=== PATIENT | male | born 1980 | race Two or more races ===

== ENCOUNTER 2020-07-14 16:56 | Emergency (ER) | payer MEDICARE, MEDICAID, SELFPAY ==
--- NOTE | ~2020-07-14 | XR_ITS ---
EXAMINATION: XR CHEST CLINICAL INFORMATION: Chest pain COMPARISON: CT abdomen and pelvis 03/13/2018 TECHNIQUE: Frontal view of the chest was obtained. FINDINGS: No significant abnormality is noted involving the heart, lungs, mediastinum, bony thorax or soft tissues. XR/XR chest 1V IMPRESSION: Unremarkable examination.
[2020-07-14 17:09] VITALS: BP 152/78; PULSE 70; RESP 16; TEMP 36.8; O2SAT 100; BMI 34.3
--- NOTE | 2020-07-14 17:12 | ECG_ITS ---
Test Reason : DIZZNESS Blood Pressure : / mmHG Vent. Rate : 071 BPM Atrial Rate : 071 BPM P-R Int : 148 ms QRS Dur : 078 ms QT Int : 374 ms P-R-T Axes : 064 041 020 degrees QTc Int : 406 ms Normal sinus rhythm Normal ECG No previous ECGs available Referred By: Generic ED Physician Electronically Signed By:VIRIDIANA RAYO
--- NOTE | 2020-07-14 17:52 | ED.CHESTPAIN ---
HPI - Chest Pain General Chief Complaint: Chest Pain Stated Complaint: dizzyness Time Seen by Provider: 07/14/20 17:38 Source: patient Mode of arrival: ambulatory Limitations: no limitations History of Present Illness HPI narrative: Patient presents to the ED for right-sided chest pain for 6 days. Patient was seen at [facility] on and had a EKG that was normal and was discharged. Patient had no workup. Patient still having chest pain. Patient denies any shortness of breath, coughing, fever, chills swelling of lower extremities, calf pain, coughing up blood, or any recent trauma. patient deniess any shortness of breath. MD complaint: chest pain Related Data Previous Rx's Medication Instructions Recorded famotidine [Pepcid] 20 mg PO BID #40 tab 07/14/20 Allergies Allergy/AdvReac Type Severity Reaction Status Date / Time No Known Allergies Allergy Verified 07/14/20 17:11 Review of Systems Review of Systems: Yes all other systems are reviewed and are negative Constitutional: Constitutional: Reports as per HPI and Reports no additional constitutional complaints Eyes: Eyes: Reports as per HPI and Reports no additional eye complaints ENT: Reports system reviewed and no additional complaints, except as documented and Reports as per HPI Cardiovascular: Cardiovascular: Reports as per HPI, Reports no additional cardiovascular complaints and Reports chest pain (Right side) Respiratory: Respiratory: Reports as per HPI and Reports no additional respiratory complaints Gastrointestinal: Gastrointestinal: Reports as per HPI and Reports no additional gastrointestinal complaints Genitourinary: Genitourinary: Reports no additional male genitourinary complaints and Reports as per HPI Musculoskeletal: Musculoskeletal: Reports no additional musculoskeletal complaints and Reports as per HPI Neurologic: Reports system reviewed and no additional complaints, except as documented and Reports as per HPI Psychiatric: Psychiatric: Reports no additional psychiatric complaints and Reports as per HPI [facility] Social History Social History Advance Directives: No Advance Directives Information Provided: No Physical Exam Vital Signs: Vital Signs: Last Vital Signs Temp 98.3 F 07/14/20 17:09 Pulse 61 07/14/20 20:00 Resp 18 07/14/20 20:00 BP 112/61 07/14/20 20:00 Pulse Ox 100 07/14/20 20:00 Body Mass Index 34.3 Const: General: cooperative, healthy appearing, comfortable, no acute distress, well developed, alert, awake and Physically active Orientation/consciousness: patient oriented x3 HENMT: Head: Yes normal to inspection, Yes No palpable skull fracture present, Yes normocephalic, Yes atraumatic and No abrasion Eyes: General: appearance normal, both eyes and all related structures Neck: Neck: Yes normal visual inspection, Yes full ROM, Yes no lymphadenopathy, Yes no meningeal signs, Yes trachea midline, Yes supple and No tender Chest: Chest palpation & inspection: normal inspection of the chest and normal palpation of entire chest wall Resp: Effort & Inspection: normal respiratory effort and able to speak in complete sentences Auscultation: clear to auscultation bilaterally Cardio: Jugular venous distension: no JVD Heart sounds: S1 normal heart sound present and S2 normal heart sound present GI: Inspection: Yes normal to inspection and No abdominal wall ecchymosis Palpation (GI): Soft to palpation, not firm, nontender and no guarding : General: No CVA tenderness and Yes no CVA tenderness Back/Spine/Pelvis: Back: no CVA tenderness, No CVA tenderness and No back tenderness Skin: General skin exam: no rashes or lesions noted and elasticity normal Neuro: General: patient oriented x3, no meningeal signs and CN's II-XI intact bilaterally Cranial nerves: Yes CN's II-XII intact bilaterally Extrem: Other: Lower extremities negative for swelling, pitting edema, or calf tenderness Psych: Appearance: grossly normal, well kempt and not disheveled Course Course Course Narrative: Patient's initial EKG is normal. Patient had basic labs including troponin to make sure there is no cardiac event. Patient also have D-dimer to rule out PE due to patient having right-sided chest pain. Patient also have COVID has been ordered and chest x-ray. Reevaluation(s) Reevaluation #1: Patient's D-dimer negative. Perc score is 0. Chest x-ray normal. Waiting for results of troponin and COVID swab Time: 19:11 Reevaluation #2: Upoin re-evaluation with nurse. Patient states symptoms started since Thursday after eating some spicy food. Due to this new information patient will be given Pepcid in the ED. Patient's troponin negative after having symptoms for 6 days. Time: 20:50 MDM - Chest Pain MDM Narrative Medical decision making narrative: GERD Lab Data Result diagrams: 07/14/20 18:39 07/14/20 18:39 Labs: Lab Results 07/14/20 07/14/20 07/14/20 Range/Units 18:39 18:39 18:39 WBC 10.1 (4.8-10.8) X10*3/uL RBC 4.95 (4.60-5.80) X10*6/uL Hgb 15.4 (14.0-18.0) g/dl Hct 44.1 (42-52) % MCV 89.1 (80-98) fL MCH 31.1 (27.0-33.0) pg MCHC 34.9 (31.0-36.0) g/dl RDW 11.8 (11.0-16.0) % Plt Count 216 (160-400) X10*3/uL MPV 12.9 H (9.4-12.4) fL Immature Gran % (Auto) 0.3 (0.0-0.4) % Neut % (Auto) 73.3 H (45-73) % Lymph % (Auto) 21.4 (20-40) % [place] % (Auto) 4.1 (2-11) % Eos % (Auto) 0.7 (0-4) % Baso % (Auto) 0.2 (0-2) % Lymph # (Auto) 2.2 (1.2-4.9) X10*3/uL [place] # (Auto) 0.4 (0.1-1.2) X10*3/uL Eos # (Auto) 0.1 (0.0-0.4) X10*3/uL Baso # (Auto) 0.0 (0.0-0.2) X10*3/uL Abs Immat Gran (auto) 0.03 (0.00-0.03) X10*3/uL Absolute Neuts (auto) 7.4 (2.0-8.3) X10*3/uL Absolute Nucleated RBC 0.000 (0.0-0.012) X10*3/uL Nucleated RBC % (auto) 0.0 (0.0-0.2) /100WBC PT 13.6 H (10.8-13.0) SEC INR 1.1 (0.9-1.1) APTT 36.9 (24.1-38.0) SEC D-Dimer < 200 NG/ML Hold Blue Top SEE NOTE Sodium 135 (135-145) mmol/L Potassium 4.0 (3.3-5.1) mmol/L Chloride 101 (96-108) mmol/L Carbon Dioxide 25 (22-29) mmol/L Anion Gap 13 (12-20) BUN 15 (9-16) mg/dL Creatinine 0.93 (0.5-1.4) mg/dL Estim Creat Clear Calc 107.2 Estimated GFR > 60 Random Glucose 126 H (60-115) mg/dL Calcium 9.3 (8.4-10.2) mg/dL Total Bilirubin 0.5 (0.0-1.0) mg/dL Direct Bilirubin 0.2 (0.0-0.5) mg/dL AST 25 (5-37) U/L ALT 34 (0-40) U/L Alkaline Phosphatase 85 (39-117) U/L Troponin I High Sens (<3.5-35.0) ng/L Total Protein 7.0 (6.5-8.0) g/dL Albumin 4.4 (3.5-5.0) g/dL Lipase (8-78) U/L COVID-19 (VIRI) (Negative) COVID-19 Clin Com 07/14/20 07/14/20 07/14/20 Range/Units 18:40 18:40 18:40 WBC (4.8-10.8) X10*3/uL RBC (4.60-5.80) X10*6/uL Hgb (14.0-18.0) g/dl Hct (42-52) % MCV (80-98) fL MCH (27.0-33.0) pg MCHC (31.0-36.0) g/dl RDW (11.0-16.0) % Plt Count (160-400) X10*3/uL MPV (9.4-12.4) fL Immature Gran % (Auto) (0.0-0.4) % Neut % (Auto) (45-73) % Lymph % (Auto) (20-40) % [place] % (Auto) (2-11) % Eos % (Auto) (0-4) % Baso % (Auto) (0-2) % Lymph # (Auto) (1.2-4.9) X10*3/uL [place] # (Auto) (0.1-1.2) X10*3/uL Eos # (Auto) (0.0-0.4) X10*3/uL Baso # (Auto) (0.0-0.2) X10*3/uL Abs Immat Gran (auto) (0.00-0.03) X10*3/uL Absolute Neuts (auto) (2.0-8.3) X10*3/uL Absolute Nucleated RBC (0.0-0.012) X10*3/uL Nucleated RBC % (auto) (0.0-0.2) /100WBC PT (10.8-13.0) SEC INR (0.9-1.1) APTT (24.1-38.0) SEC D-Dimer NG/ML Hold Blue Top Sodium (135-145) mmol/L Potassium (3.3-5.1) mmol/L Chloride (96-108) mmol/L Carbon Dioxide (22-29) mmol/L Anion Gap (12-20) BUN (9-16) mg/dL Creatinine (0.5-1.4) mg/dL Estim Creat Clear Calc Estimated GFR Random Glucose (60-115) mg/dL Calcium (8.4-10.2) mg/dL Total Bilirubin (0.0-1.0) mg/dL Direct Bilirubin (0.0-0.5) mg/dL AST (5-37) U/L ALT (0-40) U/L Alkaline Phosphatase (39-117) U/L Troponin I High Sens < 3.5 (<3.5-35.0) ng/L Total Protein (6.5-8.0) g/dL Albumin (3.5-5.0) g/dL Lipase 14 (8-78) U/L COVID-19 (VIRI) Negative (Negative) COVID-19 Clin Com See Note ECG Data ECG #1: Interpretation: Normal sinus rhythm. To clear a 71. Pr interval 148. QRS 78. QTC 4 6. Normal EKG. Negative STEMI Discharge Plan Discharge Clinical Impression: Atypical chest pain, Chest pain due to GERD Patient Disposition: Home, Self-Care Instructions: Chest Pain (ED), Gastroesophageal Reflux Disease (ED) Additional Instructions: Return to the ED immediately for worsening chest pain, shortness of breath, swelling of lower extremities, calf pain, coughing up blood, fever, chills, any other concerning symptoms. Prescriptions: New famotidine [Pepcid] 20 mg tablet 20 mg PO BID Qty: 40 RF: 0 Referrals: [place],[facility] [Primary Care Provider] - 2 days (Atypical chest pain. GERD. EKG normal. Troponin negative. D-dimer negative. Chest x-ray negative for pneumonia. COVID swab negative) Interventions: ED Discharge Assessment Last Done: 07/14/20 21:25 Discharge Date/Time: 07/14/20 21:29 Print Language: Japanese
[2020-07-14 18:45] LABS: MANUAL DIFF FLAG NO
[2020-07-14 18:50] LABS: Basophils Percent Auto 0.2 % (0-2); Eosinophils Absolute Auto 0.1 X10*3/uL (0.0-0.4); Eosinophils Percent Auto 0.7 % (0-4); Hematocrit 44.1 % (42-52); Hemoglobin 15.4 g/dl (14.0-18.0); Imm Gran Abs Auto 0.03 X10*3/uL (0.00-0.03); Imm Gran Pct Auto 0.3 % (0.0-0.4); Lymphocytes Absolute Auto 2.2 X10*3/uL (1.2-4.9); Lymphocytes Percent Auto 21.4 % (20-40); Mean Corpuscular HGB Conc 34.9 g/dl (31.0-36.0); Mean Corpuscular Hemoglobin 31.1 pg (27.0-33.0); Mean Corpuscular Volume 89.1 fL (80-98); Mean Platelet Volume 12.9 fL (9.4-12.4); Monocytes Absolute Auto 0.4 X10*3/uL (0.1-1.2); Monocytes Percent Auto 4.1 % (2-11); Neutrophils Absolute Auto 7.4 X10*3/uL (2.0-8.3); Neutrophils Percent Auto 73.3 % (45-73); Platelet Count 216 X10*3/uL (160-400); Red Blood Count 4.95 X10*6/uL (4.60-5.80); Red Cell Distribution Width 11.8 % (11.0-16.0); White Blood Count 10.1 X10*3/uL (4.8-10.8)
[2020-07-14 19:01] LABS: INTERNATIONAL NORM RATIO 1.1 (0.9-1.1); Prothrombin Time 13.6 SEC (10.8-13.0)
[2020-07-14 19:04] LABS: Partial Thromboplastin Time 36.9 SEC (24.1-38.0)
[2020-07-14 19:05] LABS: D Dimer < 200 NG/ML
[2020-07-14 19:07] LABS: COVID-19 Test Negative (Negative); IDNOW Serial# 9DD0AD1C
[2020-07-14 19:18] LABS: Lipase 14 U/L (8-78)
[2020-07-14 19:19] LABS: Alanine Aminotransferase 34 U/L (0-40); Albumin Level 4.4 g/dL (3.5-5.0); Alkaline Phosphatase 85 U/L (39-117); Anion Gap 13 (12-20); Aspartate Amino Transferase 25 U/L (5-37); Bilirubin Direct 0.2 mg/dL (0.0-0.5); Bilirubin Total 0.5 mg/dL (0.0-1.0); Blood Urea Nitrogen 15 mg/dL (9-16); Calcium 9.3 mg/dL (8.4-10.2); Carbon Dioxide 25 mmol/L (22-29); Chloride 101 mmol/L (96-108); Creatinine Clr Calc Pharmacy 107.2; Estimated Glomerular Filt Rate > 60; Glucose Random 126 mg/dL (60-115); Sodium 135 mmol/L (135-145)
[2020-07-14 19:25] LABS: Troponin-I High Sensitivity < 3.5 ng/L (<3.5-35.0)
[2020-07-14 20:00] VITALS: BP 112/61; PULSE 61; RESP 18; O2SAT 100
[2020-07-14] MEDS: Famotidine/PF 20 MG/2 ML VIAL IVPUSH (20:32)
--- NOTE | 2020-07-14 21:29 | PC.NURSE ---
pt chest discomfort resolving after receiving pepcid iv.
== END 2020-07-14 21:29 | disposition home or self-care (01) ==
PROVIDERS: Physician Assistant; Emergency Provider Internal Medicine
DX: R07.89 Other chest pain (principal); K21.9 Gastro-esophageal reflux disease without esophagitis; Z20.822 Contact with and (suspected) exposure to COVID-19
CPT/HCPCS: 36415; 71045; 80048; 80076; 83690; 84484; 85025; 85379; 85610; 85730; 87635; 93005; 96374; 99284

== ENCOUNTER 2020-07-16 19:03 | Emergency (ER) | payer MEDICARE, MEDICAID, SELFPAY ==
--- NOTE | 2020-07-16 | ECG_ITS ---
Test Reason : CHEST PAIN Blood Pressure : / mmHG Vent. Rate : 070 BPM Atrial Rate : 070 BPM P-R Int : 138 ms QRS Dur : 080 ms QT Int : 374 ms P-R-T Axes : 035 036 012 degrees QTc Int : 403 ms Normal sinus rhythm Normal ECG When compared with ECG of 14-JUL-2020 17:14, no significant change noted Referred By: Anastasiia Wells Electronically Signed By:VIRIDIANA RAYO
--- NOTE | ~2020-07-16 | XR_ITS ---
EXAMINATION: XR CHEST CLINICAL INFORMATION: Chest pain COMPARISON: 07/14/2020 TECHNIQUE: Frontal view of the chest was obtained. FINDINGS: No significant abnormality is noted involving the heart, lungs, mediastinum, bony thorax or soft tissues. XR/XR chest 1V IMPRESSION: No acute pulmonary disease. No significant change from prior study.
--- NOTE | 2020-07-16 19:12 | ECG_ITS ---
Test Reason : REPEAT Blood Pressure : / mmHG Vent. Rate : 061 BPM Atrial Rate : 061 BPM P-R Int : 156 ms QRS Dur : 082 ms QT Int : 394 ms P-R-T Axes : 048 053 034 degrees QTc Int : 396 ms Normal sinus rhythm Normal ECG When compared with ECG of 16-JUL-2020 19:11, No significant change was found Referred By: Anastasiia Wells Electronically Signed By:VIRIDIANA RAYO
[2020-07-16 19:13] VITALS: BP 120/64; PULSE 75; RESP 18; TEMP 36.7; O2SAT 99; BMI 34.3
[2020-07-16 22:00] VITALS: BP 121/66; PULSE 69; RESP 18; TEMP 36.8; O2SAT 98
--- NOTE | 2020-07-16 22:01 | PC.NURSE ---
unlabored resp. ski pwd. continues to have right sided cp radiating to left and left arm. no diaphoresis, no SOB.
[2020-07-16 22:18] LABS: Hematocrit 44.1 % (42-52); Hemoglobin 14.8 g/dl (14.0-18.0); Mean Corpuscular HGB Conc 33.6 g/dl (31.0-36.0); Mean Corpuscular Hemoglobin 30.5 pg (27.0-33.0); Mean Corpuscular Volume 90.9 fL (80-98); Mean Platelet Volume 12.7 fL (9.4-12.4); Platelet Count 202 X10*3/uL (160-400); Red Blood Count 4.85 X10*6/uL (4.60-5.80); Red Cell Distribution Width 11.8 % (11.0-16.0)
[2020-07-16 22:19] LABS: WBC ABN SCTR FOR CBC 1
[2020-07-16 22:37] LABS: Anion Gap 11 (12-20); Blood Urea Nitrogen 13 mg/dL (9-16); Calcium 9.2 mg/dL (8.4-10.2); Carbon Dioxide 29 mmol/L (22-29); Chloride 102 mmol/L (96-108); Creatinine Clr Calc Pharmacy 103.8; Estimated Glomerular Filt Rate > 60; Glucose Random 114 mg/dL (60-115); Potassium 4.3 mmol/L (3.3-5.1); Sodium 138 mmol/L (135-145); White Blood Count 9.4 X10*3/uL (4.8-10.8)
[2020-07-16 22:39] LABS: Basophils Abs Manual 0.1 X10*3/uL (0.0-0.3); Basophils Percent Manual 1 % (0-1); Lymphocytes Absolute Manual 2.4 X10*3/uL (0.6-4.8); Lymphocytes Percent Manual 26 % (20-40); Monocytes Absolute Manual 0.3 X10*3/uL (0.0-1.2); Monocytes Percent Manual 3 % (2-11); Neutrophils Percent Manual 70 % (45-73)
[2020-07-16 22:40] LABS: Neutrophils Absolute Manual 6.6 X10*3/uL (2.2-7.9); Platelet Estimate NORMAL (NORMAL); Platelet Morphology Comment NORMAL; RBC Morphology NORMAL
[2020-07-16 22:55] LABS: Troponin-I High Sensitivity < 3.5 ng/L (<3.5-35.0)
[2020-07-17] VITALS: BP 102/50; PULSE 63; RESP 18; O2SAT 99
--- NOTE | 2020-07-17 00:04 | ED_ITS ---
HPI - Chest Pain General Chief Complaint: Chest Pain Stated Complaint: CHEST PAIN Time Seen by Provider: 07/16/20 23:54 Source: patient Mode of arrival: ambulatory Limitations: no limitations History of Present Illness HPI narrative: Patient comes emergency complaining intermittent chest pain. Patient states 4 days ago, he had his 1st episode of chest pain, self resolved. Then patient came here on July 14, complaining of the same pain. Patient had a thorough workup, all was negative including a dimer. Patient states he went home, had 1 more episode and then self resolved. All day yesterday until now ena chaudhari has remained asymptomatic, patient came to emergency room to get checked. Patient states the chest pain is in both sides of the chest, dull, nonradiating. Patient denies shortness of breath a rough or diaphoresis during the episodes of chest pain. At this time, patient is completely asymptomatic, and has not had any chest pain for the last 24 hours. Patient states the episodes of abdominal pain are nonspecific to exertion Related Data Previous Rx's Medication Instructions Recorded famotidine [Pepcid] 20 mg PO BID #40 tab 07/14/20 Allergies Allergy/AdvReac Type Severity Reaction Status Date / Time No Known Allergies Allergy Verified 07/16/20 19:13 Review of Systems Review of Systems: Constitutional : No Weight loss, No Fever, No Chills, No Night Sweats, No Fatigue, No Malaise ENT/Mouth : No Hearing loss, No Ear Pain, No Nasal Congestion, No Sinus Pain, No Hoarseness, No sore throat, No Rhinorrhea, No Swallowing Difficulty Eyes: No Eye Pain, No Swelling, No Redness, No Foreign Body, No Discharge, No Vision Changes Cardiovascular : Complaining of intermittent Chest Pain, No SOB, No Dyspnea on Exertion, No Orthopnea, No Edema, No Palpitations Respiratory : No Cough, No Sputum, No Wheezing, No Smoke Exposure, No Dyspnea Gastrointestinal : No Nausea, No Vomiting, No Diarrhea, No Constipation, No abdominal Pain, No Hematochezia, No Melena Genitourinary : no irregular bleeding, No Dysuria, No Urinary Frequency, No Hematuria, No Urinary Incontinence, No Urgency, No Flank Pain, No Urinary Flow Changes, No Hesitancy Musculoskeletal : No joint pain, No Myalgias, No Joint Swelling Skin : No Skin Lesions, No rash Neuro : No Weakness, No Numbness, No Paresthesias, No Loss of Consciousness, No Dizziness, No Headache Psych : No Anxiety/Panic, No Depression, No SI/HI/AH/VH, No Social Issues, Heme/Lymph: No Bruising, No Bleeding,No Lymphadenopathy Endocrine : No Polyuria, No Polydipsia, No Temperature Intolerance [facility] Past Medical History Medical History Patient denies medical problems Social History Social History Advance Directives: No Advance Directives Information Provided: No Physical Exam Vital Signs: Vital Signs: Last Vital Signs Temp 98.2 F 07/16/20 22:00 Pulse 69 07/16/20 22:00 Resp 18 07/16/20 22:00 BP 121/66 07/16/20 22:00 Pulse Ox 98 07/16/20 22:00 Body Mass Index 34.3 Appearance: Alert. Oriented X3. No acute distress. Eyes: Pupils equal, round and reactive to light. ENT: Pharynx normal. Neck: Normal inspection. Neck supple. No lymph nodes noted. No crepitus CVS: Normal heart rate and rhythm. Pulses normal. Normal S1 and S2 Respiratory: No respiratory distress. Breath sounds normal. No Wheezing. No rales Abdomen: Soft and nontender. No rigidity. No distention. good BS x4 Skin: Skin warm and dry. Normal skin color. Normal skin turgor. Extremities: No lower extremity edema. No lower extremity edema. No Lacerations. No Rash Neuro: Oriented X 3. No motor deficit. No sensory deficit. Moving all extermities. No slurred speech. Course Course Course Narrative: Patient has remained asymptomatic for over 24 hours. Patient's troponin within normal limits, EKG 1 and 2 within normal limits. I discussed with the patient that he needs to follow up with his primary care physician and will likely need a stressed test. MDM - Chest Pain Lab Data Result diagrams: 07/16/20 22:11 07/16/20 22:11 Labs: Lab Results 07/16/20 07/16/20 07/16/20 Range/Units 22:11 22:11 22:11 WBC 9.4 (4.8-10.8) X10*3/uL RBC 4.85 (4.60-5.80) X10*6/uL Hgb 14.8 (14.0-18.0) g/dl Hct 44.1 (42-52) % MCV 90.9 (80-98) fL MCH 30.5 (27.0-33.0) pg MCHC 33.6 (31.0-36.0) g/dl RDW 11.8 (11.0-16.0) % Plt Count 202 (160-400) X10*3/uL MPV 12.7 H (9.4-12.4) fL Immature Gran % (Auto) Cancelled Neut % (Auto) Cancelled Lymph % (Auto) Cancelled [place] % (Auto) Cancelled Eos % (Auto) Cancelled Baso % (Auto) Cancelled Lymph # (Auto) Cancelled [place] # (Auto) Cancelled Eos # (Auto) Cancelled Baso # (Auto) Cancelled Abs Immat Gran (auto) Cancelled Absolute Neuts (auto) Cancelled Absolute Nucleated RBC 0.000 (0.0-0.012) X10*3/uL Nucleated RBC % (auto) 0.0 (0.0-0.2) /100WBC Neutrophils % (Manual) 70 (45-73) % Lymphocytes % (Manual) 26 (20-40) % Monocytes % (Manual) 3 (2-11) % Basophils % (Manual) 1 (0-1) % Abs Neuts (Manual) 6.6 (2.2-7.9) X10*3/uL Lymphocytes # (Manual) 2.4 (0.6-4.8) X10*3/uL Monocytes # (Manual) 0.3 (0.0-1.2) X10*3/uL Basophils # (Manual) 0.1 (0.0-0.3) X10*3/uL Platelet Estimate NORMAL (NORMAL) Plt Morphology Comment NORMAL RBC Morphology NORMAL Hold Blue Top SEE NOTE Sodium 138 (135-145) mmol/L Potassium 4.3 (3.3-5.1) mmol/L Chloride 102 (96-108) mmol/L Carbon Dioxide 29 (22-29) mmol/L Anion Gap 11 L (12-20) BUN 13 (9-16) mg/dL Creatinine 0.96 (0.5-1.4) mg/dL Estim Creat Clear Calc 103.8 Estimated GFR > 60 Random Glucose 114 (60-115) mg/dL Calcium 9.2 (8.4-10.2) mg/dL Troponin I High Sens (<3.5-35.0) ng/L 07/16/20 Range/Units 22:11 WBC (4.8-10.8) X10*3/uL RBC (4.60-5.80) X10*6/uL Hgb (14.0-18.0) g/dl Hct (42-52) % MCV (80-98) fL MCH (27.0-33.0) pg MCHC (31.0-36.0) g/dl RDW (11.0-16.0) % Plt Count (160-400) X10*3/uL MPV (9.4-12.4) fL Immature Gran % (Auto) Neut % (Auto) Lymph % (Auto) [place] % (Auto) Eos % (Auto) Baso % (Auto) Lymph # (Auto) [place] # (Auto) Eos # (Auto) Baso # (Auto) Abs Immat Gran (auto) Absolute Neuts (auto) Absolute Nucleated RBC (0.0-0.012) X10*3/uL Nucleated RBC % (auto) (0.0-0.2) /100WBC Neutrophils % (Manual) (45-73) % Lymphocytes % (Manual) (20-40) % Monocytes % (Manual) (2-11) % Basophils % (Manual) (0-1) % Abs Neuts (Manual) (2.2-7.9) X10*3/uL Lymphocytes # (Manual) (0.6-4.8) X10*3/uL Monocytes # (Manual) (0.0-1.2) X10*3/uL Basophils # (Manual) (0.0-0.3) X10*3/uL Platelet Estimate (NORMAL) Plt Morphology Comment RBC Morphology Hold Blue Top Sodium (135-145) mmol/L Potassium (3.3-5.1) mmol/L Chloride (96-108) mmol/L Carbon Dioxide (22-29) mmol/L Anion Gap (12-20) BUN (9-16) mg/dL Creatinine (0.5-1.4) mg/dL Estim Creat Clear Calc Estimated GFR Random Glucose (60-115) mg/dL Calcium (8.4-10.2) mg/dL Troponin I High Sens < 3.5 (<3.5-35.0) ng/L ECG Data ECG #1: Attestation: I personally reviewed and interpreted this ECG as follows: (Heart rate 70, sinus rhythm, no ST segment depression, nonspecific T-wave inversion in lead III) ECG #2: Attestation: I personally reviewed and interpreted this ECG as follows: (Sinus rhythm, heart rate 61, QTC 396, no ST segment depression or subtle elevations) Discharge Plan Discharge Clinical Impression: Atypical chest pain Patient Disposition: Home, Self-Care Instructions: Chest Pain (ED) Additional Instructions: Please follow-up with your primary care physician tomorrow. If you have any worsening or new symptoms, please return to the emergency room or call 911 Prescriptions: No Action famotidine [Pepcid] 20 mg tablet 20 mg PO BID Qty: 40 RF: 0
== END 2020-07-17 00:24 | disposition home or self-care (01) ==
PROVIDERS: Emergency Provider Emergency Medicine
DX: R07.89 Other chest pain (principal)
CPT/HCPCS: 36415; 71045; 80048; 84484; 85007; 85027; 93005; 99284

== ENCOUNTER 2020-07-18 18:23 | Emergency (ER) | payer MEDICARE, MEDICAID, SELFPAY ==
--- NOTE | 2020-07-18 | ECG_ITS ---
Test Reason : CP Blood Pressure : / mmHG Vent. Rate : 097 BPM Atrial Rate : 097 BPM P-R Int : 124 ms QRS Dur : 068 ms QT Int : 330 ms P-R-T Axes : 043 041 034 degrees QTc Int : 419 ms Normal sinus rhythm Normal ECG When compared with ECG of 17-JUL-2020 00:06, Vent. rate has increased BY 36 BPM Referred By: Generic ED Physician Electronically Signed By:BURT WARD MD
[2020-07-18 18:34] VITALS: BP 117/66; PULSE 87; RESP 16; TEMP 36.7; O2SAT 97; BMI 34.7
[2020-07-18 20:33] VITALS: BP 113/63; PULSE 63; RESP 18; TEMP 37.1; O2SAT 98
--- NOTE | 2020-07-18 21:22 | ED.CHESTPAIN ---
HPI - Chest Pain General Chief Complaint: Chest Pain Stated Complaint: chest pain Time Seen by Provider: 07/18/20 20:49 Source: patient Mode of arrival: ambulatory Limitations: no limitations History of Present Illness HPI narrative: 39 y/o male presenting with recurrent episodic right upper chest pain. He has been seen here twice in the last 4 days for the same. He has had a thorough workup x2 with negative troponin x2, negative DDIMER, negative CXR and COVID swab. He denies SOB, diaphoresis, nausea, vomiting, muscle aches, headache. No recent injury or strain. He reports the pain is back now. It is dull and non-radiating. No known cardiac risk factors and no family history of early cardiac disease. Related Data Previous Rx's Medication Instructions Recorded famotidine [Pepcid] 20 mg PO BID #40 tab 07/14/20 lidocaine [Lidoderm] 1 patch TOPICAL DAILY #15 ea 07/18/20 prednisone 40 mg PO DAILY #10 tab 07/18/20 Allergies Allergy/AdvReac Type Severity Reaction Status Date / Time No Known Allergies Allergy Verified 07/16/20 19:13 Review of Systems Review of Systems: Constitutional: No Fever, No Chills Cardiovascular: + Chest Pain, No SOB, No Orthopnea, No Edema Respiratory: No Cough, No Sputum, No Wheezing, No dyspnea Gastrointestinal: No Nausea, No Vomiting, No Diarrhea, No abdominal Pain Genitourinary: No Dysuria, No Urinary Frequency, No Hematuria Musculoskeletal: No joint pain, No Myalgias Skin: No Skin Lesions, No rash Neuro: No Weakness, No Numbness, No Dizziness, No Headache Psych: + Anxiety/Panic, No Depression Heme/Lymph: No Bruising, No Lymphadenopathy Endocrine: No Polyuria, No Polydipsia PMFSH Past Medical History Attestation statement: The following information was validated with the patient. Medical History Patient denies medical problems Social History Social History Advance Directives: No Advance Directives Information Provided: Yes Physical Exam Vital Signs: Vital Signs: Last Vital Signs Temp 98.9 F 07/18/20 22:10 Pulse 61 07/18/20 22:10 Resp 18 07/18/20 22:10 BP 119/69 07/18/20 22:10 Pulse Ox 97 07/18/20 22:10 Body Mass Index 34.7 Appearance: Alert. Oriented X3. No acute distress. Eyes: Pupils equal, round and reactive to light. ENT: Pharynx normal. Neck: Normal inspection. Neck supple. CVS: Normal heart rate and rhythm. Pulses normal. Respiratory: No respiratory distress. Breath sounds normal. Mild right upper chest tenderness. No skin changes or ecchymosis. Abdomen: Soft and nontender. +BS x4 Skin: Skin warm and dry. Normal skin color. Normal skin turgor. No rashes. Extremities: No lower extremity edema. Neuro: Oriented X 3. No motor deficit. No sensory deficit. Course Course Course Narrative: 39 y/o male presenting with recurrent right upper chest pain. Extensive workup x2 in the last 4 days. Doubt cardiac in nature. EKG is unremarkable. Will repeat troponin and lab workup. Reevaluation(s) Reevaluation #1: Lab workup is normal. Suspect anxiety is contributing. He was recently started on Sertraline. Given his right chest tenderness will give short course of prednisone for costochondritis. Stable for d/c. MDM - Chest Pain Lab Data Attestation: I reviewed the patient's lab results. Result diagrams: 07/18/20 21:38 07/18/20 21:39 Labs: Lab Results 07/18/20 07/18/20 07/18/20 Range/Units 21:38 21:39 21:39 WBC 11.1 H (4.8-10.8) X10*3/uL RBC 4.91 (4.60-5.80) X10*6/uL Hgb 15.2 (14.0-18.0) g/dl Hct 43.9 (42-52) % MCV 89.4 (80-98) fL MCH 31.0 (27.0-33.0) pg MCHC 34.6 (31.0-36.0) g/dl RDW 11.6 (11.0-16.0) % Plt Count 214 (160-400) X10*3/uL MPV 12.7 H (9.4-12.4) fL Immature Gran % (Auto) 0.4 (0.0-0.4) % Neut % (Auto) 62.3 (45-73) % Lymph % (Auto) 29.2 (20-40) % [place] % (Auto) 6.4 (2-11) % Eos % (Auto) 1.3 (0-4) % Baso % (Auto) 0.4 (0-2) % Lymph # (Auto) 3.2 (1.2-4.9) X10*3/uL [place] # (Auto) 0.7 (0.1-1.2) X10*3/uL Eos # (Auto) 0.1 (0.0-0.4) X10*3/uL Baso # (Auto) 0.0 (0.0-0.2) X10*3/uL Abs Immat Gran (auto) 0.04 H (0.00-0.03) X10*3/uL Absolute Neuts (auto) 6.9 (2.0-8.3) X10*3/uL Absolute Nucleated RBC 0.000 (0.0-0.012) X10*3/uL Nucleated RBC % (auto) 0.0 (0.0-0.2) /100WBC Sodium 136 (135-145) mmol/L Potassium 4.3 (3.3-5.1) mmol/L Chloride 103 (96-108) mmol/L Carbon Dioxide 28 (22-29) mmol/L Anion Gap 9 L (12-20) BUN 14 (9-16) mg/dL Creatinine 0.96 (0.5-1.4) mg/dL Estim Creat Clear Calc 104.4 Estimated GFR > 60 Random Glucose 93 (60-115) mg/dL Calcium 9.2 (8.4-10.2) mg/dL Magnesium 2.3 (1.6-2.6) mg/dL Troponin I High Sens < 3.5 (<3.5-35.0) ng/L ECG Data ECG #1: Attestation: I personally reviewed and interpreted this ECG as follows: ECG interpretation date: 07/18/20 ECG interpretation time: 22:31 Prior ECG tracings: available for review Interpretation: normal sinus rhythm, HR 97 bpm, normal QTc, normal MA interval. no ST segment elevations or depressions Scores Heart Score History: -0- slightly suspicious ECG: -0- normal Age: -0- < or = 45 Risk factory: -0- no risk factors known Troponin: -0- < or = normal limit Score: 0 Risk: 1.7% Critical Care Time Critical Care Time Critical Care Time: No Discharge Plan Discharge Clinical Impression: Atypical chest pain, Costochondritis Patient Disposition: Home, Self-Care Instructions: Costochondritis (ED) Additional Instructions: Your workup today was again normal. No evidence of life threatening nausea of chest pain. Take the prescribed anti-inflammatory medication for your pain for 5 days. Follow up with your doctor. If pain worsens or changes come back to the ER for further evaluation. Prescriptions: New prednisone 20 mg tablet 40 mg PO DAILY Qty: 10 RF: 0 lidocaine [Lidoderm] 5 % adhesive patch,medicated 1 patch topical DAILY Qty: 15 RF: 0 No Action famotidine [Pepcid] 20 mg tablet 20 mg PO BID Qty: 40 RF: 0
[2020-07-18 21:43] LABS: MANUAL DIFF FLAG NO
[2020-07-18 21:59] LABS: Basophils Percent Auto 0.4 % (0-2); Eosinophils Absolute Auto 0.1 X10*3/uL (0.0-0.4); Eosinophils Percent Auto 1.3 % (0-4); Hematocrit 43.9 % (42-52); Hemoglobin 15.2 g/dl (14.0-18.0); Imm Gran Abs Auto 0.04 X10*3/uL (0.00-0.03); Imm Gran Pct Auto 0.4 % (0.0-0.4); Lymphocytes Absolute Auto 3.2 X10*3/uL (1.2-4.9); Lymphocytes Percent Auto 29.2 % (20-40); Mean Corpuscular HGB Conc 34.6 g/dl (31.0-36.0); Mean Corpuscular Volume 89.4 fL (80-98); Mean Platelet Volume 12.7 fL (9.4-12.4); Monocytes Absolute Auto 0.7 X10*3/uL (0.1-1.2); Monocytes Percent Auto 6.4 % (2-11); Neutrophils Absolute Auto 6.9 X10*3/uL (2.0-8.3); Neutrophils Percent Auto 62.3 % (45-73); Platelet Count 214 X10*3/uL (160-400); Red Blood Count 4.91 X10*6/uL (4.60-5.80); Red Cell Distribution Width 11.6 % (11.0-16.0); White Blood Count 11.1 X10*3/uL (4.8-10.8)
[2020-07-18 22:10] VITALS: BP 119/69; PULSE 61; RESP 18; TEMP 37.2; O2SAT 97
[2020-07-18 22:10] LABS: Anion Gap 9 (12-20); Blood Urea Nitrogen 14 mg/dL (9-16); Calcium 9.2 mg/dL (8.4-10.2); Carbon Dioxide 28 mmol/L (22-29); Chloride 103 mmol/L (96-108); Creatinine Clr Calc Pharmacy 104.4; Estimated Glomerular Filt Rate > 60; Glucose Random 93 mg/dL (60-115); Magnesium 2.3 mg/dL (1.6-2.6); Potassium 4.3 mmol/L (3.3-5.1); Sodium 136 mmol/L (135-145)
[2020-07-18 22:16] LABS: Troponin-I High Sensitivity < 3.5 ng/L (<3.5-35.0)
--- NOTE | 2020-07-18 22:43 | PC.NURSE ---
pt states his pain level has improved and is ready for discharge. chest wall pain resolving. pt talking in full sentences no s/s of resp distress nsr on monitor.
== END 2020-07-18 22:50 | disposition home or self-care (01) ==
PROVIDERS: Physician Assistant; Emergency Provider Emergency Medicine
DX: R07.89 Other chest pain (principal); M94.0 Chondrocostal junction syndrome [Tietze]
CPT/HCPCS: 36415; 80048; 83735; 84484; 85025; 93005; 99283; 99284

== ENCOUNTER 2020-08-01 17:41 | Emergency (ER) | payer MEDICARE, MEDICAID, SELFPAY ==
--- NOTE | ~2020-08-01 | XR_ITS ---
EXAMINATION: XR CHEST CLINICAL INFORMATION: Chest pain COMPARISON: Chest x-ray July 2020 TECHNIQUE: 2 views of the chest were obtained. FINDINGS: No significant abnormality is noted involving the heart, lungs, mediastinum, bony thorax or soft tissues. XR/XR chest 2V IMPRESSION: Unremarkable examination.
[2020-08-01 19:42] VITALS: BP 138/80; PULSE 68; RESP 16; TEMP 36.9; O2SAT 98; BMI 34.3
--- NOTE | 2020-08-01 20:41 | ECG_ITS ---
Test Reason : CHEST PAIN Blood Pressure : / mmHG Vent. Rate : 087 BPM Atrial Rate : 087 BPM P-R Int : 130 ms QRS Dur : 074 ms QT Int : 340 ms P-R-T Axes : 043 054 026 degrees QTc Int : 409 ms Normal sinus rhythm Normal ECG When compared with ECG of 18-JUL-2020 18:26, No significant change was found Referred By: Jo Charlton Electronically Signed By:BURT WARD MD
--- NOTE | 2020-08-01 21:03 | ED_ITS ---
HPI - Chest Pain General Chief Complaint: Chest Pain Stated Complaint: Chest wall pain Time Seen by Provider: 08/01/20 20:40 Source: patient Mode of arrival: ambulatory Limitations: no limitations History of Present Illness HPI narrative: 39-year-old male here with right-sided chest pain for the last week. Patient tells me he has been seen here several times for this. He has had negative workups including negative troponin, D-dimer, chest x-ray and COVID swab. He was treated last week for costochondritis with prednisone. Patient tells me that he continued to have symptoms. He has had constant pain which is persistent for the last few weeks on the right side which is not associated with any shortness of breath, nausea, diaphoresis, dizziness, cough. He tells me pain is worsened with palpation but is not worsened with deep breathing. No calf pain. No abdominal pain, nausea or vomiting. Related Data Previous Rx's Medication Instructions Recorded famotidine [Pepcid] 20 mg PO BID #40 tab 07/14/20 lidocaine [Lidoderm] 1 patch TOPICAL DAILY #15 ea 07/18/20 prednisone 40 mg PO DAILY #10 tab 07/18/20 cyclobenzaprine 10 mg PO TID PRN #10 tab 08/01/20 ibuprofen 600 mg PO Q8H PRN #10 tab 08/01/20 Allergies Allergy/AdvReac Type Severity Reaction Status Date / Time No Known Allergies Allergy Verified 07/16/20 19:13 Review of Systems Review of Systems: Yes all other systems are reviewed and are negative Constitutional: Constitutional: Reports no additional constitutional complaints, Denies body ache(s), Denies chills, Denies fever(s), Denies headache(s) and Denies weakness Eyes: Eyes: Reports no additional eye complaints and Denies change in vision ENT: Reports system reviewed and no additional complaints, except as documented, Denies dizziness, Denies headache(s), Denies nasal congestion, Denies nasal discharge and Denies neck pain Cardiovascular: Cardiovascular: Reports no additional cardiovascular complaints, Reports chest pain, Denies leg edema and Denies dyspnea Respiratory: Respiratory: Reports no additional respiratory complaints, Denies cough and Denies dyspnea Gastrointestinal: Gastrointestinal: Reports no additional gastrointestinal complaints, Denies abdominal pain, Denies diarrhea, Denies nausea and Denies vomiting Genitourinary: Genitourinary: Denies urinary incontinence Musculoskeletal: Musculoskeletal: Reports no additional musculoskeletal complaints, Denies back pain, Denies arthralgias, Denies joint swelling, Denies neck pain, Denies numbness and Denies tingling Integumentary/Breasts: Skin/Breast: Reports system reviewed and no additional complaints, except as docu and Denies rash Neurologic: Reports system reviewed and no additional complaints, except as documented, Denies Abnormal speech present, Denies dizziness, Denies headache(s), Denies numbness, Denies tingling and Denies weakness PMFSH Past Medical History Attestation statement: The following information was validated with the patient. Source: old records reviewed and nursing notes reviewed Medical History Patient denies medical problems Social History Social History Advance Directives: No Advance Directives Information Provided: Yes Physical Exam Vital Signs: Vital Signs: Last Vital Signs Temp 98.5 F 08/01/20 19:42 Pulse 67 08/01/20 22:53 Resp 18 08/01/20 22:53 BP 114/57 L 08/01/20 22:53 Pulse Ox 98 08/01/20 22:53 Body Mass Index 34.3 Const: General: cooperative, healthy appearing, comfortable and no acute distress Orientation/consciousness: patient oriented x3 Limitations: no limitations HENMT: Head: Yes normal to inspection Ears: hearing grossly normal bilaterally General nose exam: Normal external nose present Face and sinus: Yes normal facial exam Mouth: Normal oral and palatal mucosa present Throat: Yes posterior oropharynx normal Eyes: General: appearance normal, both eyes and all related structures Pupils: Equal, round and reactive pupils present Neck: Neck: Yes normal visual inspection Chest: Other: Chest pain worsened with palpation on the right side Chest palpation & inspection: normal inspection of the chest Resp: Effort & Inspection: normal respiratory effort Auscultation: clear to auscultation bilaterally Cardio: Rate: regular rate Rhythm: regular rhythm Peripheral pulses: Peripheral pulses 2+ throughout GI: Inspection: Yes normal to inspection Palpation (GI): Soft to palpation and nontender Auscultation: normal bowel sounds Back/Spine/Pelvis: Thoracic/Lumbar Spine: thoracic and lumbar spine normal to inspection Skin: General skin exam: no rashes or lesions noted Neuro: General: patient oriented x3, no focal motor deficits and normal sensation to monofilament Cranial nerves: Yes Equal, round and reactive pupils present Cognition (Neuro): normal cognition Speech: No Abnormal speech present Gait exam (Neuro): Normal gait present Motor exam (neuro): 5/5 motor strength present throughout Extrem: General: Yes normal to inspection Course Course Course Narrative: Reproducible right-sided chest discomfort which has been constant for the last few weeks with multiple ED visits with negative workups. Patient tells me the pain is not worsened but this is the same. He has a follow-up appointment August 09 with his primary care doctor. Will check labs, chest x-ray, EKG. 1030-imaging unremarkable. EKG with no acute changes. Labs are unremarkable. Patient is improved after receiving some Toradol. His exam is more musculoskeletal. I did review this with the patient. Reviewed keeping his follow-up appointment with his primary care doctor. Reviewed worrisome signs and symptoms of when to return to the emergency department. Comfortable discharge home. MDM - Chest Pain MDM Narrative Medical decision making narrative: Musculoskeletal pain, chest wall strain, costochondritis, ACS, PE, pneumonia Less likely ACS with negative troponin and unchanged EKG with symptoms for weeks. Less likely PE with negative PERC score, no tachycardia or hypoxia for clinical signs and symptoms for DVT. Less likely pneumonia with negative chest x-ray Medical Records Data Attestation: I reviewed the patient's medical records. Lab Data Attestation: I reviewed the patient's lab results. Result diagrams: 08/01/20 21:31 08/01/20 21:31 Labs: Lab Results 08/01/20 08/01/20 08/01/20 Range/Units 21:31 21:31 21:31 WBC 11.5 H (4.8-10.8) X10*3/uL RBC 4.92 (4.60-5.80) X10*6/uL Hgb 15.0 (14.0-18.0) g/dl Hct 44.7 (42-52) % MCV 90.9 (80-98) fL MCH 30.5 (27.0-33.0) pg MCHC 33.6 (31.0-36.0) g/dl RDW 11.8 (11.0-16.0) % Plt Count 213 (160-400) X10*3/uL MPV 12.2 (9.4-12.4) fL Immature Gran % (Auto) 0.3 (0.0-0.4) % Neut % (Auto) 65.8 (45-73) % Lymph % (Auto) 25.7 (20-40) % [place] % (Auto) 6.7 (2-11) % Eos % (Auto) 1.2 (0-4) % Baso % (Auto) 0.3 (0-2) % Lymph # (Auto) 3.0 (1.2-4.9) X10*3/uL [place] # (Auto) 0.8 (0.1-1.2) X10*3/uL Eos # (Auto) 0.1 (0.0-0.4) X10*3/uL Baso # (Auto) 0.0 (0.0-0.2) X10*3/uL Abs Immat Gran (auto) 0.03 (0.00-0.03) X10*3/uL Absolute Neuts (auto) 7.5 (2.0-8.3) X10*3/uL Absolute Nucleated RBC 0.000 (0.0-0.012) X10*3/uL Nucleated RBC % (auto) 0.0 (0.0-0.2) /100WBC PT 11.3 (10.8-13.0) SEC INR 1.0 (0.9-1.1) Sodium 138 (135-145) mmol/L Potassium 4.4 (3.3-5.1) mmol/L Chloride 103 (96-108) mmol/L Carbon Dioxide 26 (22-29) mmol/L Anion Gap 13 (12-20) BUN 16 (9-16) mg/dL Creatinine 0.84 (0.5-1.4) mg/dL Estim Creat Clear Calc 118.7 Estimated GFR > 60 Random Glucose 90 (60-115) mg/dL Calcium 9.2 (8.4-10.2) mg/dL Total Bilirubin 0.3 (0.0-1.0) mg/dL Direct Bilirubin < 0.2 (0.0-0.5) mg/dL AST 29 (5-37) U/L ALT 66 H (0-40) U/L Alkaline Phosphatase 112 D (39-117) U/L Troponin I High Sens (<3.5-35.0) ng/L Total Protein 7.1 (6.5-8.0) g/dL Albumin 4.2 (3.5-5.0) g/dL 08/01/20 Range/Units 21:31 WBC (4.8-10.8) X10*3/uL RBC (4.60-5.80) X10*6/uL Hgb (14.0-18.0) g/dl Hct (42-52) % MCV (80-98) fL MCH (27.0-33.0) pg MCHC (31.0-36.0) g/dl RDW (11.0-16.0) % Plt Count (160-400) X10*3/uL MPV (9.4-12.4) fL Immature Gran % (Auto) (0.0-0.4) % Neut % (Auto) (45-73) % Lymph % (Auto) (20-40) % [place] % (Auto) (2-11) % Eos % (Auto) (0-4) % Baso % (Auto) (0-2) % Lymph # (Auto) (1.2-4.9) X10*3/uL [place] # (Auto) (0.1-1.2) X10*3/uL Eos # (Auto) (0.0-0.4) X10*3/uL Baso # (Auto) (0.0-0.2) X10*3/uL Abs Immat Gran (auto) (0.00-0.03) X10*3/uL Absolute Neuts (auto) (2.0-8.3) X10*3/uL Absolute Nucleated RBC (0.0-0.012) X10*3/uL Nucleated RBC % (auto) (0.0-0.2) /100WBC PT (10.8-13.0) SEC INR (0.9-1.1) Sodium (135-145) mmol/L Potassium (3.3-5.1) mmol/L Chloride (96-108) mmol/L Carbon Dioxide (22-29) mmol/L Anion Gap (12-20) BUN (9-16) mg/dL Creatinine (0.5-1.4) mg/dL Estim Creat Clear Calc Estimated GFR Random Glucose (60-115) mg/dL Calcium (8.4-10.2) mg/dL Total Bilirubin (0.0-1.0) mg/dL Direct Bilirubin (0.0-0.5) mg/dL AST (5-37) U/L ALT (0-40) U/L Alkaline Phosphatase (39-117) U/L Troponin I High Sens 3.5 (<3.5-35.0) ng/L Total Protein (6.5-8.0) g/dL Albumin (3.5-5.0) g/dL Imaging Data Chest x-ray: Attestation: I personally reviewed and interpreted this imaging study as follows: Radiologist's impression: EXAMINATION: XR CHEST CLINICAL INFORMATION: Chest pain COMPARISON: Chest x-ray July 2020 TECHNIQUE: 2 views of the chest were obtained. FINDINGS: No significant abnormality is noted involving the heart, lungs, mediastinum, bony thorax or soft tissues. XR/XR chest 2V IMPRESSION: Unremarkable examination. ECG Data ECG #1: Attestation: I personally reviewed and interpreted this ECG as follows: Interpretation: Normal sinus rhythm with a rate of 87, normal MO, normal QRS, normal QTC Discharge Plan Discharge Clinical Impression: Atypical chest pain Patient Disposition: Home, Self-Care Instructions: Chest Wall Pain (ED) Additional Instructions: Keep your appointment with your PCP Prescriptions: New cyclobenzaprine 10 mg tablet 10 mg PO TID PRN (Reason: muscle spasm) Qty: 10 RF: 0 ibuprofen 600 mg tablet 600 mg PO Q8H PRN (Reason: pain) Qty: 10 RF: 0 No Action famotidine [Pepcid] 20 mg tablet 20 mg PO BID Qty: 40 RF: 0 prednisone 20 mg tablet 40 mg PO DAILY Qty: 10 RF: 0 lidocaine [Lidoderm] 5 % adhesive patch,medicated 1 patch topical DAILY Qty: 15 RF: 0 Referrals: Physician,Unknown [Primary Care Provider] - 2 days Interventions: ED Discharge Assessment Last Done: 08/01/20 22:54 Discharge Date/Time: 08/01/20 22:57
[2020-08-01 21:37] LABS: MANUAL DIFF FLAG NO
[2020-08-01 21:39] LABS: Basophils Percent Auto 0.3 % (0-2); Eosinophils Absolute Auto 0.1 X10*3/uL (0.0-0.4); Eosinophils Percent Auto 1.2 % (0-4); Hematocrit 44.7 % (42-52); Imm Gran Abs Auto 0.03 X10*3/uL (0.00-0.03); Imm Gran Pct Auto 0.3 % (0.0-0.4); Lymphocytes Percent Auto 25.7 % (20-40); Mean Corpuscular HGB Conc 33.6 g/dl (31.0-36.0); Mean Corpuscular Hemoglobin 30.5 pg (27.0-33.0); Mean Corpuscular Volume 90.9 fL (80-98); Mean Platelet Volume 12.2 fL (9.4-12.4); Monocytes Absolute Auto 0.8 X10*3/uL (0.1-1.2); Monocytes Percent Auto 6.7 % (2-11); Neutrophils Absolute Auto 7.5 X10*3/uL (2.0-8.3); Neutrophils Percent Auto 65.8 % (45-73); Platelet Count 213 X10*3/uL (160-400); Red Blood Count 4.92 X10*6/uL (4.60-5.80); Red Cell Distribution Width 11.8 % (11.0-16.0); White Blood Count 11.5 X10*3/uL (4.8-10.8)
[2020-08-01 21:44] LABS: Prothrombin Time 11.3 SEC (10.8-13.0)
[2020-08-01] MEDS: Ketorolac Tromethamine 30 MG/ML VIAL IVPUSH (21:54)
[2020-08-01 22:03] LABS: Alanine Aminotransferase 66 U/L (0-40); Albumin Level 4.2 g/dL (3.5-5.0); Alkaline Phosphatase 112 U/L (39-117); Anion Gap 13 (12-20); Aspartate Amino Transferase 29 U/L (5-37); Bilirubin Direct < 0.2 mg/dL (0.0-0.5); Bilirubin Total 0.3 mg/dL (0.0-1.0); Blood Urea Nitrogen 16 mg/dL (9-16); Calcium 9.2 mg/dL (8.4-10.2); Carbon Dioxide 26 mmol/L (22-29); Chloride 103 mmol/L (96-108); Creatinine Clr Calc Pharmacy 118.7; Estimated Glomerular Filt Rate > 60; Glucose Random 90 mg/dL (60-115); Potassium 4.4 mmol/L (3.3-5.1); Sodium 138 mmol/L (135-145); Total Protein 7.1 g/dL (6.5-8.0)
--- NOTE | 2020-08-01 22:03 | PC.NURSE ---
medicated per emar
[2020-08-01 22:05] LABS: Troponin-I High Sensitivity 3.5 ng/L (<3.5-35.0)
[2020-08-01 22:53] VITALS: BP 114/57; PULSE 67; RESP 18; O2SAT 98
== END 2020-08-01 22:57 | disposition home or self-care (01) ==
PROVIDERS: Nurse Practitioner Family; Emergency Provider Emergency Medicine
DX: R07.89 Other chest pain (principal)
CPT/HCPCS: 36415; 71046; 80048; 80076; 84484; 85025; 85610; 93005; 96374; 99284; J1885

== ENCOUNTER 2021-02-11 12:32 | Emergency (ER) | payer MEDICARE, MEDICAID, SELFPAY ==
[2021-02-11 13:19] VITALS: BP 132/78; PULSE 66; RESP 16; TEMP 36.6; O2SAT 98; BMI 34.3
[2021-02-11 15:31] VITALS: BP 134/64; PULSE 63; RESP 16; O2SAT 100
[2021-02-11 15:43] LABS: Glucose Urine UA NEG (NEG); Leukocyte Esterase Urine NEG (NEG); Nitrite Urine NEG (NEG); Specific Gravity - Urine 1.025 (1.005-1.025); Urine Blood NEG (NEG); Urine Ketones NEG (NEG); Urine Protein NEG (NEG-TRACE)
[2021-02-11 15:44] LABS: Appearance Urine CLEAR; Color Urine STRAW
[2021-02-11] MEDS: Cyclobenzaprine HCl 5 MG TABLET PO (15:44)
[2021-02-11] MEDS: Ketorolac Tromethamine 15 MG/ML VIAL 30 MG IM (15:44)
--- NOTE | 2021-02-11 16:45 | ED_ITS ---
HPI - Back Pain/Injury General Chief Complaint: Abdominal Pain Stated Complaint: back pain Time Seen by Provider: 02/11/21 15:22 Source: patient Mode of arrival: ambulatory History of Present Illness HPI Narrative: 40-year-old male with past medical history of renal stones presenting to the ED complaining of bilateral low back pain radiating to abdomen since yesterday. Admits intermittent radiation down E ED. admits pain began after doing some work. States pain exacerbated with bending/movement. Denies known injury/trauma or fall, nausea, vomiting, dysuria/hematuria, flank pain, weakness, numbness, tingling, urinary incontinence/retention MD elicited complaint: back pain Related Data Previous Rx's Medication Instructions Recorded famotidine 20 mg tablet (Pepcid) 20 mg PO BID #40 tab 07/14/20 lidocaine 5 % topical patch 1 patch TOPICAL DAILY #15 ea 07/18/20 (Lidoderm) prednisone 20 mg tablet 40 mg PO DAILY #10 tab 07/18/20 cyclobenzaprine 10 mg tablet 10 mg PO TID PRN #10 tab 08/01/20 ibuprofen 600 mg tablet 600 mg PO Q8H PRN #10 tab 08/01/20 acetaminophen 500 mg tablet 500 mg PO Q6H PRN #20 tab 02/11/21 (Tylenol Extra Strength) cyclobenzaprine 5 mg tablet 5 mg PO Q8H PRN 5 Days #14 tab 02/11/21 lidocaine 5 % topical patch 1 patch TOPICAL DAILY PRN #30 ea 02/11/21 (Lidoderm) MDD remove after 12 hours naproxen 500 mg tablet 500 mg PO BID PRN 10 Days #20 tab 02/11/21 Allergies Allergy/AdvReac Type Severity Reaction Status Date / Time No Known Allergies Allergy Verified 07/16/20 19:13 Review of Systems Review of Systems: Constitutional:No Fever, No Chills, No Fatigue, No Malaise ENT/Mouth: No Ear Pain, No Hoarseness, No sore throat, No Rhinorrhea, No Swallowing Difficulty Eyes: No Eye Pain Cardiovascular: No Chest Pain, No SOB Respiratory: No Cough, No Dyspnea Gastrointestinal: No Nausea, No Vomiting, No Diarrhea, No Constipation, No Abdominal pain Genitourinary: No Dysuria, No Urinary Frequency, No Hematuria, No Urinary Incontinence/retention, No Urgency, No Flank Pain Musculoskeletal: + joint pain, No Myalgias, No Joint Swelling Skin: No Skin Lesions, No rash Neuro: No Weakness, No Numbness, No Paresthesias Yes all other systems are reviewed and are negative Neurologic: Denies Sensory deficit (Neuro) [facility] Past Medical History Attestation statement: The following information was validated with the patient. Medical History Patient denies medical problems Social History Social History Alcohol intake: never Patient Tobacco Use Status: Never used Tobacco Use of substances other than those prescribed or required for medical reasons: No Advance Directives: No Physical Exam Vital Signs: Vital Signs: Last Vital Signs Temp 97.8 F 02/11/21 13:19 Pulse 63 02/11/21 15:31 Resp 16 02/11/21 15:31 BP 134/64 02/11/21 15:31 Pulse Ox 100 02/11/21 15:31 Body Mass Index 34.3 Const: General: cooperative and healthy appearing Orientation/consciousness: patient oriented x3 Limitations: no limitations HENMT: Head: Yes normal to inspection Ears: hearing grossly normal bilaterally General nose exam: Normal external nose present Face and sinus: Yes normal facial exam Eyes: General: appearance normal, both eyes and all related structures EOM: EOMs intact bilaterally Neck: Neck: Yes normal visual inspection Resp: Effort & Inspection: normal respiratory effort and no respiratory distress Cardio: Rate: regular rate GI: Inspection: Yes normal to inspection Palpation (GI): Soft to palpation, nontender, no guarding and not rigid : General: Yes no CVA tenderness Back/Spine/Pelvis: Other: No midline thoracic/lumbar spine tenderness/step-off or deformity. + bilateral MSK/paraspinal lumbar tenderness to palpation Back: no CVA tenderness Skin: Rashes: no rashes Wounds: no wounds Neuro: Other: No saddle anesthesia. Ambulating with steady gait General: patient oriented x3, gait normal, tone normal and moves all extremities Gait exam (Neuro): Normal gait present Motor exam (neuro): 5/5 motor strength present throughout Sensory Exam: No Sensory deficit (Neuro) Extrem: General: Yes normal to inspection Course Course Course Narrative: -UA without blood -[id number]--on re-evaluation patient reports symptomatic improvement. Feels safe for discharge home. Worrisome signs and symptoms discussed MDM - Back Pain/Injury MDM Narrative Medical decision making narrative: 40-year-old male with past medical history of renal stones presenting to the ED complaining of bilateral low back pain radiating to abdomen since yesterday. On exam VS as, NAD/well-appearing, physical exam as above, no midline spinous tenderness throughout, no red flag symptoms. No CVAT. Likely MSK pain. Lower concern for renal stone/pyelo Will obtain UA and treat symptomatically Medical Records Attestation: I reviewed the patient's medical records. Lab Data Labs: Lab Results 02/11/21 Range/Units 15:34 Urine Color STRAW Urine Appearance CLEAR Urine pH 6.0 (5.0-8.0) Ur Specific [place] 1.025 (1.005-1.025) Urine Protein NEG (NEG-TRACE) MG/DL Urine Glucose (UA) NEG (NEG) MG/DL Urine Ketones NEG (NEG) MG/DL Urine Blood NEG (NEG) Urine Nitrite NEG (NEG) Ur Leukocyte Esterase NEG (NEG) Discharge Plan Discharge Clinical Impression: Back pain Qualifiers: Back pain location: low back pain Chronicity: acute Back pain laterality: bilateral Sciatica presence: with sciatica Sciatica laterality: sciatica of left side Qualified Code(s): M54.42 - Lumbago with sciatica, left side Patient Disposition: Home, Self-Care Instructions: Acute Low Back Pain (ED) Additional Instructions: Your pain is likely musculoskeletal Flexeril is a muscle relaxer, take at night as it makes you drowsy, do not drive, drink alcohol, or operate machinery while taking it Naproxen as an anti-inflammatory / pain medication, take with food Lidoderm patches are numbing patches, apply to painful area In addition take Tylenol at home If symptoms persist or worsen, pain becomes unbearable, you developed urinary retention or incontinence, or weakness return to the ED Prescriptions: New lidocaine [Lidoderm] 5 % adhesive patch,medicated 1 patch topical DAILY MDD remove after 12 hours PRN (Reason: pain) Qty: 30 RF: 0 cyclobenzaprine 5 mg tablet 5 mg PO Q8H PRN (Reason: pain (scale score 7-10)) 5 Days Qty: 14 RF: 0 naproxen 500 mg tablet 500 mg PO BID PRN (Reason: pain) 10 Days Qty: 20 RF: 0 acetaminophen [Tylenol Extra Strength] 500 mg tablet 500 mg PO Q6H PRN (Reason: pain or fever) Qty: 20 RF: 0 No Action cyclobenzaprine 10 mg tablet 10 mg PO TID PRN (Reason: muscle spasm) Qty: 10 RF: 0 ibuprofen 600 mg tablet 600 mg PO Q8H PRN (Reason: pain) Qty: 10 RF: 0 famotidine [Pepcid] 20 mg tablet 20 mg PO BID Qty: 40 RF: 0 prednisone 20 mg tablet 40 mg PO DAILY Qty: 10 RF: 0 lidocaine [Lidoderm] 5 % adhesive patch,medicated 1 patch topical DAILY Qty: 15 RF: 0 Referrals: [facility] [Primary Care Provider] - 5 days
[2021-02-11 17:07] VITALS: BP 126/75; PULSE 62; RESP 16; O2SAT 100
== END 2021-02-11 17:09 | disposition home or self-care (01) ==
PROVIDERS: Physician Assistant; Emergency Provider Emergency Medicine
DX: M54.42 Lumbago with sciatica, left side (principal)
CPT/HCPCS: 81003; 96372; 99284; 99285; J1885

== ENCOUNTER 2021-05-16 14:29 | Emergency (ER) | payer MEDICARE, MEDICAID, SELFPAY ==
--- NOTE | ~2021-05-16 | XR_ITS ---
EXAMINATION: XR KNEE, RIGHT CLINICAL INFORMATION: Right knee pain. COMPARISON: None TECHNIQUE: AP and lateral views of the right knee. FINDINGS: Mild medial compartment joint space narrowing. No marginal osteophytes. No osseous erosion. Small superior patellar enthesophytes. No fracture or dislocation. No significant joint effusion. XR/XR knee RT 2V IMPRESSION: Mild medial compartment arthrosis.
[2021-05-16 15:39] VITALS: BP 126/80; PULSE 77; RESP 16; TEMP 36.4; O2SAT 98; BMI 34.3
--- NOTE | 2021-05-16 19:52 | ED_ITS ---
HPI - General Adult General Chief complaint: General Medical Stated complaint: r knee abd and chest pain Source: patient Mode of arrival: ambulatory Limitations: no limitations History of Present Illness HPI narrative: 40-year-old male presents with multiple complaints. States that he has had right knee pain for almost a week, stated that he was evaluated at an urgent care and was dissatisfied because he did not receive any x-rays. States that he has intermittent right testicular pain but does not have pain at this current moment. Patient is also complaining of muscular skeletal pain and chest pain however does not have pain at this time. Onset (ago): week(s) (1) Location: genitals, right and lower extremity Severity: mild Quality: aching Pain Consistency: constant Relieving factors: none Exacerbating factors: movement Associated symptoms: denies other symptoms Treatments prior to arrival: none Related Data Previous Rx's Medication Instructions Recorded famotidine 20 mg tablet (Pepcid) 20 mg PO BID #40 tab 07/14/20 lidocaine 5 % topical patch 1 patch TOPICAL DAILY #15 ea 07/18/20 (Lidoderm) prednisone 20 mg tablet 40 mg PO DAILY #10 tab 07/18/20 cyclobenzaprine 10 mg tablet 10 mg PO TID PRN #10 tab 08/01/20 ibuprofen 600 mg tablet 600 mg PO Q8H PRN #10 tab 08/01/20 acetaminophen 500 mg tablet 500 mg PO Q6H PRN #20 tab 02/11/21 (Tylenol Extra Strength) cyclobenzaprine 5 mg tablet 5 mg PO Q8H PRN 5 Days #14 tab 02/11/21 lidocaine 5 % topical patch 1 patch TOPICAL DAILY PRN #30 ea 02/11/21 (Lidoderm) MDD remove after 12 hours naproxen 500 mg tablet 500 mg PO BID PRN 10 Days #20 tab 02/11/21 naproxen 500 mg tablet 500 mg PO BID PRN #60 tab 05/16/21 Allergies Allergy/AdvReac Type Severity Reaction Status Date / Time No Known Allergies Allergy Verified 07/16/20 19:13 Review of Systems Review of Systems: Constitutional: No Fever, No Chills ENT/Mouth: No Ear Pain, No Hoarseness, No sore throat Eyes: No Eye Pain, No Swelling, No Redness, No Foreign Body Cardiovascular: No Chest Pain, No SOB Respiratory: No Cough, No Dyspnea Gastrointestinal: No Nausea, No Vomiting, No Diarrhea, No abdominal Pain Genitourinary: No Dysuria, No Hematuria Musculoskeletal: positive right knee pain, No Myalgias, No Joint Swelling Skin: No Skin lacerations, No rash Neuro: No Weakness, No Numbness, No Paresthesias, No Loss of Consciousness, No Dizziness, No Headache Psych: No Anxiety/Panic, No Depression Heme/Lymph: no easy bruising, no Lymphadenopathy Endocrine: No Polyuria, No Polydipsia Yes all other systems are reviewed and are negative [facility] Past Medical History Attestation statement: The following information was validated with the patient. Source: old records reviewed Medical History Patient denies medical problems Social History Social History Alcohol intake: never Patient Tobacco Use Status: Never used Tobacco Advance Directives: Yes Advance Directives Information Provided: Yes Advance Directives on File: No Physical Exam Vital Signs: Vital Signs: Last Vital Signs Temp 98.4 F 05/16/21 20:43 Pulse 81 05/16/21 20:43 Resp 18 05/16/21 20:43 BP 129/56 L 05/16/21 20:43 Pulse Ox 99 05/16/21 20:43 BMI result Body Mass Index 34.3 Appearance: Alert. Oriented X3. No acute distress. Eyes: Pupils equal, round and reactive to light. ENT: Pharynx normal. Neck: Normal inspection. Neck supple. CVS: Normal heart rate and rhythm. Pulses normal. Respiratory: No respiratory distress. Breath sounds normal. Abdomen: Soft and nontender. Skin: Skin warm and dry. Normal skin color. Normal skin turgor. Extremities: No lower extremity edema. Gait well-balanced well coordinated. Strength 5/5 to all extremities. Neuro: No motor deficit. No sensory deficit. Cranial nerves 2-12 intact. Course Course Course Narrative: 40-year-old male presents with multiple complaints. Stated that he was at urgent care yesterday for right knee pain. Was upset because he did not receive any x-rays. Was offered x-rays today which he gladly accepted. Reports right chest wall pain off and on for approximately 1 week but does not have pain at this moment. Does not have any shortness of breath, dizziness, weakness, or any other concerning symptoms. Third complaint is intermittent right testicular pain however his testicle does not hurt at this moment. He does have concerns that he might possibly have a sexually transmitted infection. Does not report any penile discharge or lesions. Patient would like to be treated for chlamydia and gonorrhea, urinalysis pending . Treated with azithromycin and ceftriaxone. Patient is afebrile, appears nontoxic, neurovascularly intact. Urinalysis is negative. CT NG pending. X-ray shows knee arthrosis, patient was referred to Dr. Barreto for follow-up for possible surgical management. Patient verbalized understanding of and agrees to plan of care discharge home. Medical Decision Making Differential Diagnosis Differential Diagnosis: Knee sprain, effusion, ligament or tendon injury, UTI, STD Medical Records Medical records reviewed: Yes I reviewed the patient's medical records. Lab Data Lab results reviewed: Yes I reviewed the patient's lab results. Labs: Lab Results 05/16/21 Range/Units 21:04 Urine Color YELLOW Urine Appearance CLEAR Urine pH 5.5 (5.0-8.0) Ur Specific [place] >= 1.030 H (1.005-1.025) Urine Protein TRACE (NEG-TRACE) MG/DL Urine Glucose (UA) NEG (NEG) MG/DL Urine Ketones NEG (NEG) MG/DL Urine Blood NEG (NEG) Urine Nitrite NEG (NEG) Ur Leukocyte Esterase NEG (NEG) Imaging Data Knee x-ray: Attestation: I personally reviewed and interpreted this imaging study as follows: Radiologist's impression: EXAMINATION: XR KNEE, RIGHT? CLINICAL INFORMATION: Right knee pain.? COMPARISON: None? TECHNIQUE: AP and lateral views of the right knee. FINDINGS: Mild medial compartment joint space narrowing. No marginal osteophytes. No osseous erosion. Small superior patellar enthesophytes. No fracture or dislocation. No significant joint effusion.? XR/XR knee RT 2V IMPRESSION: Mild medial compartment arthrosis. Discharge Plan Discharge Clinical Impression: Arthrosis of knee Patient Disposition: Home, Self-Care Instructions: Sexually Transmitted Diseases (ED), Arthritis (ED) Additional Instructions: You evaluated for right knee pain. X-ray show arthrosis, which is a degeneration of the cartilage in the knee. Please follow-up with orthopedics. I have provided you phone number for Dr. Barreto. Please call and request an appointment for evaluation. We treated you for possible sexually transmitted infection exposure. Please refrain from sexual activity for 2 weeks. Inform your partner that you were treated for chlamydia and gonorrhea. Your test results are pending. Please take Tylenol and Motrin as needed for pain management. Thank you for choosing this emergency department for evaluation. Please follow-up with primary care physician as needed. Return to the emergency department for any new, concerning, or worsening symptoms. Prescriptions: New naproxen 500 mg tablet 500 mg PO BID PRN (Reason: pain) Qty: 60 RF: 0 No Action cyclobenzaprine 10 mg tablet 10 mg PO TID PRN (Reason: muscle spasm) Qty: 10 RF: 0 ibuprofen 600 mg tablet 600 mg PO Q8H PRN (Reason: pain) Qty: 10 RF: 0 lidocaine [Lidoderm] 5 % adhesive patch,medicated 1 patch topical DAILY MDD remove after 12 hours PRN (Reason: pain) Qty: 30 RF: 0 cyclobenzaprine 5 mg tablet 5 mg PO Q8H PRN (Reason: pain (scale score 7-10)) 5 Days Qty: 14 RF: 0 naproxen 500 mg tablet 500 mg PO BID PRN (Reason: pain) 10 Days Qty: 20 RF: 0 acetaminophen [Tylenol Extra Strength] 500 mg tablet 500 mg PO Q6H PRN (Reason: pain or fever) Qty: 20 RF: 0 famotidine [Pepcid] 20 mg tablet 20 mg PO BID Qty: 40 RF: 0 prednisone 20 mg tablet 40 mg PO DAILY Qty: 10 RF: 0 lidocaine [Lidoderm] 5 % adhesive patch,medicated 1 patch topical DAILY Qty: 15 RF: 0 Referrals: Nitesh Barreto MD [Physician] - 2 days (Right knee arthrosis) Stand Alone Forms: Work/School Release Interventions: ED Discharge Assessment Last Done: 05/16/21 22:07 Discharge Date/Time: 05/16/21 22:17
[2021-05-16 20:43] VITALS: BP 129/56; PULSE 81; RESP 18; TEMP 36.9; O2SAT 99
[2021-05-16 21:14] LABS: Appearance Urine CLEAR; Color Urine YELLOW; Glucose Urine UA NEG (NEG); Leukocyte Esterase Urine NEG (NEG); Nitrite Urine NEG (NEG); PH 5.5 (5.0-8.0); Specific Gravity - Urine >= 1.030 (1.005-1.025); Urine Blood NEG (NEG); Urine Ketones NEG (NEG); Urine Protein TRACE MG/DL (NEG-TRACE)
[2021-05-16] MEDS: cefTRIAXone sodium 500 MG, Lidocaine HCl 1 % MPF 1 ML IM (22:02)
[2021-05-17 01:11] LABS: CT PCR NOT DETECTED (Not Detect.); NG PCR NOT DETECTED (Not Detect.)
== END 2021-05-16 22:17 | disposition home or self-care (01) ==
PROVIDERS: Nurse Practitioner Family; Emergency Provider Internal Medicine; PCP Internal Medicine
DX: M17.11 Unilateral primary osteoarthritis, right knee (principal); M25.561 Pain in right knee; Z20.2 Contact with and (suspected) exposure to infections with a predominantly sexual mode of transmission
CPT/HCPCS: 73560; 81003; 87491; 87591; 96372; 99283; 99284; J0696

== ENCOUNTER 2021-05-19 16:01 | Emergency (ER) | payer MEDICARE, MEDICAID, SELFPAY ==
--- NOTE | ~2021-05-19 | XR_ITS ---
EXAMINATION: XR CHEST CLINICAL INFORMATION: Chest pain. COMPARISON: Most recent chest radiograph dated 08/01/2020. TECHNIQUE: Frontal view of the chest was obtained. FINDINGS: The lungs are clear. The cardiomediastinal silhouette is normal in size. There is no pleural effusion or pneumothorax. No acute osseous abnormality. XR/XR chest 1V IMPRESSION: No acute cardiopulmonary findings.
--- NOTE | 2021-05-19 16:08 | ECG_ITS ---
Test Reason : CHEST PAIN Blood Pressure : / mmHG Vent. Rate : 081 BPM Atrial Rate : 081 BPM P-R Int : 146 ms QRS Dur : 076 ms QT Int : 362 ms P-R-T Axes : 041 046 018 degrees QTc Int : 420 ms Normal sinus rhythm Normal ECG When compared with ECG of 01-AUG-2020 17:47, No significant change was found Referred By: Generic ED Physician Electronically Signed By:BURT WARD MD
[2021-05-19 16:18] VITALS: BP 123/61; PULSE 79; RESP 18; TEMP 36.9; O2SAT 96; BMI 34.3
[2021-05-19 19:26] LABS: Basophils Absolute Auto 0.1 X10*3/uL (0.0-0.2); Basophils Percent Auto 0.5 % (0-2); Eosinophils Absolute Auto 0.2 X10*3/uL (0.0-0.4); Eosinophils Percent Auto 1.6 % (0-4); Hematocrit 42.8 % (42.0-52.0); Hemoglobin 14.5 g/dl (14.0-18.0); Imm Gran Abs Auto 0.05 X10*3/uL (0.00-0.03); Imm Gran Pct Auto 0.5 % (0.0-0.4); Lymphocytes Absolute Auto 2.6 X10*3/uL (1.2-4.9); Lymphocytes Percent Auto 26.3 % (20-40); MANUAL DIFF FLAG NO; Mean Corpuscular HGB Conc 33.9 g/dl (31.0-36.0); Mean Corpuscular Hemoglobin 30.6 pg (27.0-33.0); Mean Corpuscular Volume 90.3 fL (80.0-98.0); Mean Platelet Volume 11.7 fL (9.4-12.4); Monocytes Absolute Auto 0.7 X10*3/uL (0.1-1.2); Monocytes Percent Auto 6.8 % (2-11); Neutrophils Absolute Auto 6.4 x10*3/uL (2.0-8.3); Neutrophils Percent Auto 64.3 % (45-73); Platelet Count 271 X10*3/uL (160-400); Red Blood Count 4.74 X10*6/uL (4.60-5.80); Red Cell Distribution Width 11.9 % (11.0-16.0)
--- NOTE | 2021-05-19 19:35 | ED.CHESTPAIN ---
HPI - Chest Pain General Chief Complaint: Chest Pain Stated Complaint: chest and groin pain Time Seen by Provider: 05/19/21 19:35 Source: patient Mode of arrival: ambulatory Limitations: no limitations History of Present Illness HPI narrative: Patient no significant coronary artery risk factors been here multiple times for chest pain off and on this time he comes here for right-sided chest pain for last 4 days nonspecific pain lasting for few minutes no shortness of breath no chest trauma no cough no radiation of pain to the shoulder or arm. Patient also complaining of pain in the right scrotal area Related Data Previous Rx's Medication Instructions Recorded famotidine 20 mg tablet (Pepcid) 20 mg PO BID #40 tab 07/14/20 lidocaine 5 % topical patch 1 patch TOPICAL DAILY #15 ea 07/18/20 (Lidoderm) prednisone 20 mg tablet 40 mg PO DAILY #10 tab 07/18/20 cyclobenzaprine 10 mg tablet 10 mg PO TID PRN #10 tab 08/01/20 ibuprofen 600 mg tablet 600 mg PO Q8H PRN #10 tab 08/01/20 acetaminophen 500 mg tablet 500 mg PO Q6H PRN #20 tab 02/11/21 (Tylenol Extra Strength) cyclobenzaprine 5 mg tablet 5 mg PO Q8H PRN 5 Days #14 tab 02/11/21 lidocaine 5 % topical patch 1 patch TOPICAL DAILY PRN #30 ea 02/11/21 (Lidoderm) MDD remove after 12 hours naproxen 500 mg tablet 500 mg PO BID PRN 10 Days #20 tab 02/11/21 naproxen 500 mg tablet 500 mg PO BID PRN #60 tab 05/16/21 Allergies Allergy/AdvReac Type Severity Reaction Status Date / Time No Known Allergies Allergy Verified 07/16/20 19:13 [facility] Past Medical History Medical History Patient denies medical problems Social History Social History Alcohol intake: never Patient Tobacco Use Status: Never used Tobacco Advance Directives: No Advance Directives Information Provided: No Physical Exam Vital Signs: Vital Signs: Last Vital Signs Temp 98.4 F 05/19/21 16:18 Pulse 79 05/19/21 16:18 Resp 18 05/19/21 16:18 BP 123/61 12/12/21 16:18 Pulse Ox 96 05/19/21 16:18 BMI result Body Mass Index 34.3 Appearance: Alert. Oriented X3. No acute distress. ENT: Pharynx normal. Oral Mucosa moist Neck: Normal inspection. Neck supple. CVS: Normal heart rate and rhythm. Pulses normal. Right chest wall tender to touch skin is normal Respiratory: No respiratory distress. Equal air entry bilateral, no wheezing/rales/rhonchi Abdomen: Soft and nontender. : Scrotal nontender on palpation, small cyst on the right epididymis area noticed nontender Skin: Skin warm and dry. Normal skin color. Normal skin turgor. Extremities: No lower extremity edema. No calf tenderness Neuro: Oriented X 3. MDM - Chest Pain MDM Narrative Medical decision making narrative: Patient with multiple atypical complaints been here multiple times for different reasons chest pain is on the right side likely musculoskeletal normal EKG normal cardiac enzymes discharge patient home advised to take ibuprofen Medical Records Data Attestation: I reviewed the patient's medical records. Lab Data Result diagrams: 05/19/21 19:20 05/19/21 19:20 Labs: Lab Results 05/19/21 05/19/21 05/19/21 Range/Units 19:20 19:20 19:20 WBC 10.0 (4.8-10.8) X10*3/uL RBC 4.74 (4.60-5.80) X10*6/uL Hgb 14.5 (14.0-18.0) g/dl Hct 42.8 (42.0-52.0) % MCV 90.3 (80.0-98.0) fL MCH 30.6 (27.0-33.0) pg MCHC 33.9 (31.0-36.0) g/dl RDW 11.9 (11.0-16.0) % Plt Count 271 (160-400) X10*3/uL MPV 11.7 (9.4-12.4) fL Immature Gran % (Auto) 0.5 H (0.0-0.4) % Neut % (Auto) 64.3 (45-73) % Lymph % (Auto) 26.3 (20-40) % [place] % (Auto) 6.8 (2-11) % Eos % (Auto) 1.6 (0-4) % Baso % (Auto) 0.5 (0-2) % Lymph # (Auto) 2.6 (1.2-4.9) X10*3/uL [place] # (Auto) 0.7 (0.1-1.2) X10*3/uL Eos # (Auto) 0.2 (0.0-0.4) X10*3/uL Baso # (Auto) 0.1 (0.0-0.2) X10*3/uL Abs Immat Gran (auto) 0.05 H (0.00-0.03) X10*3/uL Absolute Neuts (auto) 6.4 (2.0-8.3) x10*3/uL Absolute Nucleated RBC 0.000 (0.0-0.012) X10*3/uL Nucleated RBC % (auto) 0.0 (0.0-0.2) /100WBC Sodium 141 (135-145) mmol/L Potassium 4.1 (3.3-5.1) mmol/L Chloride 106 (96-108) mmol/L Carbon Dioxide 28 (22-29) mmol/L Anion Gap 11 L (12-20) BUN 14 (9-16) mg/dL Creatinine 1.05 (0.5-1.4) mg/dL Estim Creat Clear Calc 94.0 Estimated GFR > 60 Random Glucose 89 (60-115) mg/dL Calcium 9.5 (8.4-10.2) mg/dL Troponin I High Sens < 3.5 (<3.5-35.0) ng/L ECG Data ECG #1: Interpretation: Double sinus rhythm 81 beats per minute no acute STT wave changes no acute ischemia impression normal EKG Discharge Plan Discharge Clinical Impression: Musculoskeletal chest pain Patient Disposition: Home, Self-Care Instructions: Chest Wall Pain (ED) Additional Instructions: your right-sided chest pain is not from the heart it is likely from the muscles. Ibuprofen for pain Prescriptions: No Action cyclobenzaprine 10 mg tablet 10 mg PO TID PRN (Reason: muscle spasm) Qty: 10 RF: 0 ibuprofen 600 mg tablet 600 mg PO Q8H PRN (Reason: pain) Qty: 10 RF: 0 lidocaine [Lidoderm] 5 % adhesive patch,medicated 1 patch topical DAILY MDD remove after 12 hours PRN (Reason: pain) Qty: 30 RF: 0 cyclobenzaprine 5 mg tablet 5 mg PO Q8H PRN (Reason: pain (scale score 7-10)) 5 Days Qty: 14 RF: 0 naproxen 500 mg tablet 500 mg PO BID PRN (Reason: pain) 10 Days Qty: 20 RF: 0 acetaminophen [Tylenol Extra Strength] 500 mg tablet 500 mg PO Q6H PRN (Reason: pain or fever) Qty: 20 RF: 0 famotidine [Pepcid] 20 mg tablet 20 mg PO BID Qty: 40 RF: 0 prednisone 20 mg tablet 40 mg PO DAILY Qty: 10 RF: 0 lidocaine [Lidoderm] 5 % adhesive patch,medicated 1 patch topical DAILY Qty: 15 RF: 0 naproxen 500 mg tablet 500 mg PO BID PRN (Reason: pain) Qty: 60 RF: 0
[2021-05-19 19:40] LABS: Anion Gap 11 (12-20); Blood Urea Nitrogen 14 mg/dL (9-16); Calcium 9.5 mg/dL (8.4-10.2); Carbon Dioxide 28 mmol/L (22-29); Chloride 106 mmol/L (96-108); Estimated Glomerular Filt Rate > 60; Glucose Random 89 mg/dL (60-115); Potassium 4.1 mmol/L (3.3-5.1); Sodium 141 mmol/L (135-145)
[2021-05-19 19:45] LABS: Troponin-I High Sensitivity < 3.5 ng/L (<3.5-35.0)
== END 2021-05-19 20:15 | disposition home or self-care (01) ==
PROVIDERS: Emergency Provider Internal Medicine; PCP Internal Medicine
DX: R07.89 Other chest pain (principal); N50.82 Scrotal pain
CPT/HCPCS: 36415; 71045; 80048; 84484; 85025; 93005; 99283; 99284

== ENCOUNTER 2021-06-12 07:04 | Outpatient (REF) | payer MEDICARE, MEDICAID, SELFPAY ==
--- NOTE | ~2021-06-12 | XR_ITS ---
EXAMINATION: RIGHT KNEE X-RAY CLINICAL INFORMATION: Pain COMPARISON: Right knee x-rays 05/16/2021 TECHNIQUE: Patellar sunrise view of the right knee was obtained. FINDINGS: There is mild narrowing of the patellofemoral joint space. No significant osteophytes appreciated on this single view although a small superior patellar enthesophyte was present on lateral imaging of the patella from 05/16/2021. No focal soft tissue swelling is identified. No radiopaque foreign body. XR/XR knee RT 1V IMPRESSION: Mild patellofemoral degenerative changes.
== END 2021-06-12 07:05 | disposition home or self-care (01) ==
LOC: HO.HOSX 07:04
PROVIDERS: Visit Provider Physician Assistant
DX: M17.11 Unilateral primary osteoarthritis, right knee (principal)
CPT/HCPCS: 73560; 99202

== ENCOUNTER 2021-07-01 13:08 | Outpatient (REF) | payer MEDICARE, MEDICAID, SELFPAY ==
--- NOTE | ~2021-07-01 | US_ITS ---
EXAMINATION: US SCROTUM CLINICAL INFORMATION: Right testicular pain. COMPARISON: None TECHNIQUE: A sonogram of the scrotum was performed assessing lebron-scale appearance and color Doppler flow. Spectral Doppler analysis of the arterial and venous flow were performed in the testes bilaterally. FINDINGS: RIGHT: Right testicle measures 3.8 x 2.1 x 2.7 cm, volume 11.3 mL. No focal testicular parenchymal lesions are visualized. Spectral Doppler analysis of the arterial and venous flow is normal in the right testis. Right epididymal head is normal in size. No right hydrocele is seen. There is a small right varicocele present. Right epididymal Doppler flow is increased. LEFT: Left testicle measures 3.4 x 1.6 x 2.1 cm, volume 6.0 mL. Spectral Doppler analysis of the arterial and venous flow is increased in the left testis. Left epididymal head is normal in size. No left varicocele is seen. There is a small left hydrocele or a large loculated cyst. There is a small scrotal pearll visualized measuring 0.3 x 0.7 x 0.3 cm.Left epididymal Doppler flow is normal. US/US scrotum IMPRESSION: There is bilateral varicoceles and a small left hydrocele seen. The hydrocele could represent a small loculated cyst. Increased Doppler flow to left testicle and right epididymis. Small left scrotal ced within the hydrocele.
== END 2021-07-01 13:09 | disposition home or self-care (01) ==
LOC: HO.US 13:08
PROVIDERS: Visit Provider Nurse Practitioner
DX: N50.811 Right testicular pain (principal)
CPT/HCPCS: 76870

== ENCOUNTER 2021-07-23 14:00 | Outpatient (RCR) | payer MEDICARE, MEDICAID, SELFPAY ==
--- NOTE | 2021-06-25 14:36 | MHC.PT.EP ---
[facility] [place] Office [place] Office [place] Office [address] [phone] F: [phone] F: [phone] F: [phone] F: [phone] Physical Therapy Plan of Care Date of Evaluation: Date of Surgery: NA Diagnosis: Unilateral primary OA of R knee Assessment: Brain is a 40 year old male who is referred to PT for unilateral primary OA of R knee . Pt reports of having insidious onset of knee pain about 2 months back. About a month back he followed up with ortho where he was given pain medications and knee brace. This resolved his pain however has been using knee brace for ADLS. On PT examination he presents with 0/10 pain, no TTP, decreased R hip and knee muscle strength, impaired posture and gait. Due to these impairments he uses a knee brace for standing, walking and stair negotiation He would benefit from skilled PT to address the aforementioned impairments and improve tolerance to functional activities. Frequency and Duration: The patient will be seen 2/week for 3 weeks Short Term Goals: 1. Pt will be able to stand, walk and negotiate stairs without use of knee brace and without pain in 1 week. Group Home Goals: 1. Pt will be able to kneel on the floor for cleaning without brace and without pain in 2 weeks. 2. Pt will be independent with [facility] for symptom management and maintenance following d/c in 3 weeks. Treatment Plan: Modalities to reduce pain, spasms and effusion. Manual therapy to restore motion and function. Therapeutic exercise to improve strength and flexibility. Neuromuscular re-education for posture and balance. Therapeutic activities to return to functional activities of daily living. Electronically signed by: Annabel Jones PT DPT Please sign and return to therapist. Thank you for your referral.
--- NOTE | 2021-07-23 15:01 | MHC.PT.DC ---
[facility] [place] Office [place] Office [place] Office [address] [phone] F: [phone] F: [phone] F: [phone] F: [phone] Physical Therapy Discharge Report Diagnosis: Unilateral primary OA of R knee Date of Surgery: NA Date of Evaluation: 06/25/21 Date of Discharge: 07/23/21 Treatments to Date: 4 Cancellations to Date: 0 No Shows to Date: 0 Discharge Status: Achieved Goals Improved Function Discharge Summary: Brain is being d/c from PT today. He has achieved all goals set for him and has returned to PLOF. He is independent with all HEPs as well. Electronically signed by: Annabel Jones, PT DPT Please sign and return to therapist. Thank you for your referral.
== END 2021-07-23 15:02 | disposition home or self-care (01) ==
LOC: HO.PT 14:00
PROVIDERS: PCP Internal Medicine; Visit Provider Physician Assistant
DX: M17.11 Unilateral primary osteoarthritis, right knee (principal)
CPT/HCPCS: 97110; 97161; 97530

== ENCOUNTER 2022-05-11 18:37 | Emergency (ER) | payer MEDICARE, MEDICAID, SELFPAY ==
--- NOTE | ~2022-05-11 | XR_ITS ---
EXAMINATION: XR chest 2V CLINICAL INFORMATION: Reason for Exam cp COMPARISON: Chest radiograph 05/19/2021 TECHNIQUE: 2 views of the chest FINDINGS: Clear lungs. No pneumothorax or pleural effusion. Normal cardiomediastinal silhouette. XR/XR chest 2V IMPRESSION: * Clear lungs.
--- NOTE | 2022-05-11 18:38 | ED.CHESTPAIN ---
HPI - Chest Pain General Chief Complaint: Chest Pain <Jo Charlton NP - Last Filed: 05/11/22 18:39> Stated Complaint: chest pain <Jo Charlton NP - Last Filed: 05/11/22 18:39> Time Seen by Provider: 05/11/22 19:44 <Jo Chalrton NP - Last Filed: 05/11/22 18:39> Source: patient <Nguyễn Dela Cruz MD - Last Filed: 05/12/22 01:30> Mode of arrival: ambulatory <Nguyễn Dela Cruz MD - Last Filed: 05/12/22 01:30> Limitations: no limitations <Nguyễn Dela Cruz MD - Last Filed: 05/12/22 01:30> History of Present Illness HPI narrative: Patient with no significant past medical history noticed pain at the right side of the chest for last 4 - 5 days increases on palpation and movements started after patient was lifting something <Nguyễn Dela Cruz MD - Last Filed: 05/12/22 01:30> Related Data Home Medications: Previous Rx's Medication Instructions Recorded famotidine 20 mg tablet (Pepcid) 20 mg PO BID #40 tabs 07/14/20 lidocaine 5 % topical patch 1 patch topical DAILY #15 ea 07/18/20 (Lidoderm) prednisone 20 mg tablet 40 mg PO DAILY #10 tabs 07/18/20 cyclobenzaprine 10 mg tablet 10 mg PO TID PRN muscle spasm #10 08/01/20 tabs ibuprofen 600 mg tablet 600 mg PO Q8H PRN pain #10 tabs 08/01/20 acetaminophen 500 mg tablet 500 mg PO Q6H PRN pain or fever 02/11/21 (Tylenol Extra Strength) #20 tabs cyclobenzaprine 5 mg tablet 5 mg PO Q8H PRN pain (scale score 02/11/21 7-10) 5 days #14 tabs lidocaine 5 % topical patch 1 patch topical DAILY PRN pain #30 02/11/21 (Lidoderm) ea naproxen 500 mg tablet 500 mg PO BID PRN pain 10 days #20 02/11/21 tabs naproxen 500 mg tablet 500 mg PO BID PRN pain #60 tabs 05/16/21 ibuprofen 600 mg tablet 600 mg PO Q6H PRN fever or pain 05/11/22 #30 tabs <Jo Charlton NP - Last Filed: 05/11/22 18:39> Allergies/Adverse Reactions: Allergies Allergy/AdvReac Type Severity Reaction Status Date / Time No Known Allergies Allergy Verified 06/12/21 10:54 <Jo Charlton NP - Last Filed: 05/11/22 18:39> Review of Systems Review of Systems: Yes all other systems are reviewed and are negative <Nguyễn Dela Cruz MD - Last Filed: 05/12/22 01:30> [facility] Past Medical History Medical History: Medical History Patient denies medical problems <Jo Charlton NP - Last Filed: 05/11/22 18:39> Social History Social History: Social History Alcohol intake: never Patient Tobacco Use Status: Never used Tobacco Advance Directives: No Advance Directives Information Provided: Yes Current occupational status: disabled Current occupation: Rt handed <Jo Charlton NP - Last Filed: 05/11/22 18:39> Physical Exam Vital Signs: Vital Signs: Last Vital Signs Temp 98.9 F 05/11/22 18:39 Pulse 95 05/11/22 18:39 Resp 18 05/11/22 18:39 BP 136/71 05/11/22 18:39 Pulse Ox 98 05/11/22 18:39 O2 Del Method 05/11/22 18:39 BMI result Body Mass Index 42.9 <Jo Charlton NP - Last Filed: 05/11/22 18:39> Vital Signs: Last Vital Signs Temp 98.9 F 05/11/22 18:39 Pulse 95 05/11/22 18:39 Resp 18 05/11/22 18:39 BP 136/71 05/11/22 18:39 Pulse Ox 98 05/11/22 18:39 O2 Del Method 05/11/22 18:39 BMI result Body Mass Index 42.9 <Nguyễn Dela Cruz MD - Last Filed: 05/12/22 01:30> Appearance: Alert. Oriented X3. No acute distress. Eyes: PERRLA, No Nystagmus ENT: Pharynx normal. Oral Mucosa moist Neck: Normal inspection. Neck supple. CVS: Normal heart rate and rhythm. Pulses normal. Respiratory: No respiratory distress. Equal air entry bilateral, no wheezing/rales/rhonchi tender to touch right anterior chest Abdomen: Soft and nontender. Bowel sounds are present, no mass palpable, no CVA tenderness Skin: Skin warm and dry. Normal skin color. Normal skin turgor. Extremities: No lower extremity edema. No calf tenderness Neuro: Oriented X 3. <Nguyễn Dela Cruz MD - Last Filed: 05/12/22 01:30> Course Course Course Narrative: This is a rapid medical exam. Deferred additional HPI, ROS, PE to primary provider. 41-year-old male here with chest pain for 5 days. Will check EKG, labs, COVID screen, chest x-ray. Vital signs stable <Jo Charlton NP - Last Filed: 05/11/22 18:39> Medications Administered Discontinued Medications Generic Name Dose Route Start Last Admin Trade Name Freq PRN Reason Stop Dose Admin Ibuprofen 600 mg 05/11/22 20:20 05/11/22 20:26 Ibuprofen 600 Mg Tablet PO 05/11/22 20:21 600 mg ONCE ONE Administration <Jo Charlton NP - Last Filed: 05/11/22 18:39> Medications Administered Discontinued Medications Generic Name Dose Route Start Last Admin Trade Name Freq PRN Reason Stop Dose Admin Ibuprofen 600 mg 05/11/22 20:20 05/11/22 20:26 Ibuprofen 600 Mg Tablet PO 05/11/22 20:21 600 mg ONCE ONE Administration <Nguyễn Dela Cruz MD - Last Filed: 05/12/22 01:30> MDM - Chest Pain MDM Narrative Medical decision making narrative: Patient clinically musculoskeletal chest pain heart score of 0 initial workup including chest x-ray troponin negative EKG without any ischemic changes <Nguyễn Dela Cruz MD - Last Filed: 05/12/22 01:30> Lab Data Attestation: I reviewed the patient's lab results. <Nguyễn Dela Cruz MD - Last Filed: 05/12/22 01:30> Result diagrams: : 05/11/22 19:37 05/11/22 19:37 <Jo Charlton, FRATERNITY ADVISER - Last Filed: 05/11/22 18:39> Labs: Lab Results 05/11/22 05/11/22 05/11/22 Range/Units 19:25 19:37 19:37 WBC 10.2 (4.8-10.8) X10*3/uL RBC 4.59 L (4.60-5.80) X10*6/uL Hgb 13.9 L (14.0-18.0) g/dl Hct 41.4 L (42.0-52.0) % MCV 90.2 (80.0-98.0) fL MCH 30.3 (27.0-33.0) pg MCHC 33.6 (31.0-36.0) g/dl RDW 12.3 (11.0-16.0) % Plt Count 219 (160-400) X10*3/uL MPV 12.5 H (9.4-12.4) fL Immature Gran % (Auto) 0.3 (0.0-0.4) % Neut % (Auto) 74.9 H (45-73) % Lymph % (Auto) 17.5 L (20-40) % [place] % (Auto) 5.9 (2-11) % Eos % (Auto) 1.1 (0-4) % Baso % (Auto) 0.3 (0-2) % Lymph # (Auto) 1.8 (1.2-4.9) X10*3/uL [place] # (Auto) 0.6 (0.1-1.2) X10*3/uL Eos # (Auto) 0.1 (0.0-0.4) X10*3/uL Baso # (Auto) 0.0 (0.0-0.2) X10*3/uL Abs Immat Gran (auto) 0.03 (0.00-0.03) X10*3/uL Absolute Neuts (auto) 7.6 (2.0-8.3) x10*3/uL Absolute Nucleated RBC 0.000 (0.0-0.012) X10*3/uL Nucleated RBC % (auto) 0.0 (0.0-0.2) /100WBC Sodium 134 L (135-145) mmol/L Potassium 3.8 (3.3-5.1) mmol/L Chloride 108 (96-108) mmol/L Carbon Dioxide 24 (22-29) mmol/L Anion Gap 6 L (12-20) BUN 22 H (9-16) mg/dL Creatinine 1.11 (0.5-1.4) mg/dL Estim Creat Clear Calc 99.1 Estimated GFR > 60 Random Glucose 128 H (60-115) mg/dL Calcium 9.4 (8.4-10.2) mg/dL Total Bilirubin 0.2 (0.0-1.0) mg/dL Direct Bilirubin < 0.2 (0.0-0.5) mg/dL AST 23 (5-37) U/L ALT 40 (0-40) U/L Alkaline Phosphatase 103 (39-117) U/L Troponin I High Sens (<3.5-35.0) ng/L Total Protein 6.5 (6.5-8.0) g/dL Albumin 4.1 (3.5-5.0) g/dL COVID-19 (VIRI) Negative (Negative) COVID-19 Clin Com See Note 05/11/22 Range/Units 19:37 WBC (4.8-10.8) X10*3/uL RBC (4.60-5.80) X10*6/uL Hgb (14.0-18.0) g/dl Hct (42.0-52.0) % MCV (80.0-98.0) fL MCH (27.0-33.0) pg MCHC (31.0-36.0) g/dl RDW (11.0-16.0) % Plt Count (160-400) X10*3/uL MPV (9.4-12.4) fL Immature Gran % (Auto) (0.0-0.4) % Neut % (Auto) (45-73) % Lymph % (Auto) (20-40) % [place] % (Auto) (2-11) % Eos % (Auto) (0-4) % Baso % (Auto) (0-2) % Lymph # (Auto) (1.2-4.9) X10*3/uL [place] # (Auto) (0.1-1.2) X10*3/uL Eos # (Auto) (0.0-0.4) X10*3/uL Baso # (Auto) (0.0-0.2) X10*3/uL Abs Immat Gran (auto) (0.00-0.03) X10*3/uL Absolute Neuts (auto) (2.0-8.3) x10*3/uL Absolute Nucleated RBC (0.0-0.012) X10*3/uL Nucleated RBC % (auto) (0.0-0.2) /100WBC Sodium (135-145) mmol/L Potassium (3.3-5.1) mmol/L Chloride (96-108) mmol/L Carbon Dioxide (22-29) mmol/L Anion Gap (12-20) BUN (9-16) mg/dL Creatinine (0.5-1.4) mg/dL Estim Creat Clear Calc Estimated GFR Random Glucose (60-115) mg/dL Calcium (8.4-10.2) mg/dL Total Bilirubin (0.0-1.0) mg/dL Direct Bilirubin (0.0-0.5) mg/dL AST (5-37) U/L ALT (0-40) U/L Alkaline Phosphatase (39-117) U/L Troponin I High Sens < 3.5 (<3.5-35.0) ng/L Total Protein (6.5-8.0) g/dL Albumin (3.5-5.0) g/dL COVID-19 (VIRI) (Negative) COVID-19 Clin Com <Jo Charlton, FRATERNITY ADVISER - Last Filed: 05/11/22 18:39> Lab Results 05/11/22 05/11/22 05/11/22 Range/Units 19:25 19:37 19:37 WBC 10.2 (4.8-10.8) X10*3/uL RBC 4.59 L (4.60-5.80) X10*6/uL Hgb 13.9 L (14.0-18.0) g/dl Hct 41.4 L (42.0-52.0) % MCV 90.2 (80.0-98.0) fL MCH 30.3 (27.0-33.0) pg MCHC 33.6 (31.0-36.0) g/dl RDW 12.3 (11.0-16.0) % Plt Count 219 (160-400) X10*3/uL MPV 12.5 H (9.4-12.4) fL Immature Gran % (Auto) 0.3 (0.0-0.4) % Neut % (Auto) 74.9 H (45-73) % Lymph % (Auto) 17.5 L (20-40) % [place] % (Auto) 5.9 (2-11) % Eos % (Auto) 1.1 (0-4) % Baso % (Auto) 0.3 (0-2) % Lymph # (Auto) 1.8 (1.2-4.9) X10*3/uL [place] # (Auto) 0.6 (0.1-1.2) X10*3/uL Eos # (Auto) 0.1 (0.0-0.4) X10*3/uL Baso # (Auto) 0.0 (0.0-0.2) X10*3/uL Abs Immat Gran (auto) 0.03 (0.00-0.03) X10*3/uL Absolute Neuts (auto) 7.6 (2.0-8.3) x10*3/uL Absolute Nucleated RBC 0.000 (0.0-0.012) X10*3/uL Nucleated RBC % (auto) 0.0 (0.0-0.2) /100WBC Sodium 134 L (135-145) mmol/L Potassium 3.8 (3.3-5.1) mmol/L Chloride 108 (96-108) mmol/L Carbon Dioxide 24 (22-29) mmol/L Anion Gap 6 L (12-20) BUN 22 H (9-16) mg/dL Creatinine 1.11 (0.5-1.4) mg/dL Estim Creat Clear Calc 99.1 Estimated GFR > 60 Random Glucose 128 H (60-115) mg/dL Calcium 9.4 (8.4-10.2) mg/dL Total Bilirubin 0.2 (0.0-1.0) mg/dL Direct Bilirubin < 0.2 (0.0-0.5) mg/dL AST 23 (5-37) U/L ALT 40 (0-40) U/L Alkaline Phosphatase 103 (39-117) U/L Troponin I High Sens (<3.5-35.0) ng/L Total Protein 6.5 (6.5-8.0) g/dL Albumin 4.1 (3.5-5.0) g/dL COVID-19 (VIRI) Negative (Negative) COVID-19 Clin Com See Note 05/11/22 Range/Units 19:37 WBC (4.8-10.8) X10*3/uL RBC (4.60-5.80) X10*6/uL Hgb (14.0-18.0) g/dl Hct (42.0-52.0) % MCV (80.0-98.0) fL MCH (27.0-33.0) pg MCHC (31.0-36.0) g/dl RDW (11.0-16.0) % Plt Count (160-400) X10*3/uL MPV (9.4-12.4) fL Immature Gran % (Auto) (0.0-0.4) % Neut % (Auto) (45-73) % Lymph % (Auto) (20-40) % [place] % (Auto) (2-11) % Eos % (Auto) (0-4) % Baso % (Auto) (0-2) % Lymph # (Auto) (1.2-4.9) X10*3/uL [place] # (Auto) (0.1-1.2) X10*3/uL Eos # (Auto) (0.0-0.4) X10*3/uL Baso # (Auto) (0.0-0.2) X10*3/uL Abs Immat Gran (auto) (0.00-0.03) X10*3/uL Absolute Neuts (auto) (2.0-8.3) x10*3/uL Absolute Nucleated RBC (0.0-0.012) X10*3/uL Nucleated RBC % (auto) (0.0-0.2) /100WBC Sodium (135-145) mmol/L Potassium (3.3-5.1) mmol/L Chloride (96-108) mmol/L Carbon Dioxide (22-29) mmol/L Anion Gap (12-20) BUN (9-16) mg/dL Creatinine (0.5-1.4) mg/dL Estim Creat Clear Calc Estimated GFR Random Glucose (60-115) mg/dL Calcium (8.4-10.2) mg/dL Total Bilirubin (0.0-1.0) mg/dL Direct Bilirubin (0.0-0.5) mg/dL AST (5-37) U/L ALT (0-40) U/L Alkaline Phosphatase (39-117) U/L Troponin I High Sens < 3.5 (<3.5-35.0) ng/L Total Protein (6.5-8.0) g/dL Albumin (3.5-5.0) g/dL COVID-19 (VIRI) (Negative) COVID-19 Clin Com <Nguyễn Dela Cruz MD - Last Filed: 05/12/22 01:30> ECG Data ECG #1: Attestation: I personally reviewed and interpreted this ECG as follows: <Nguyễn Dela Cruz MD - Last Filed: 05/12/22 01:30> Interpretation: Normal sinus rhythm heart rate 90 beats per minute normal interval normal axis impression normal EKG <Nguyễn Dela Cruz MD - Last Filed: 05/12/22 01:30> Discharge Plan Discharge Clinical Impression: Chest pain, musculoskeletal <Jo Charlton NP - Last Filed: 05/11/22 18:39> Patient Disposition: Home, Self-Care <Jo Charlton NP - Last Filed: 05/11/22 18:39> Instructions: Chest Wall Pain (ED) <Jo Charlton NP - Last Filed: 05/11/22 18:39> Additional Instructions: Take ibuprofen for pain Follow-up with PCP if any concerns <Jo Charlton NP - Last Filed: 05/11/22 18:39> Prescriptions: New ibuprofen 600 mg tablet 600 mg PO Q6H PRN (Reason: fever or pain) Qty: 30 0RF No Action cyclobenzaprine 10 mg tablet 10 mg PO TID PRN (Reason: muscle spasm) Qty: 10 0RF ibuprofen 600 mg tablet 600 mg PO Q8H PRN (Reason: pain) Qty: 10 0RF lidocaine [Lidoderm] 5 % adhesive patch,medicated 1 patch topical DAILY MDD remove after 12 hours PRN (Reason: pain) Qty: 30 0RF Rx Instructions: leave on most painful area for up to 12 hrs cyclobenzaprine 5 mg tablet 5 mg PO Q8H PRN (Reason: pain (scale score 7-10)) 5 Days Qty: 14 0RF naproxen 500 mg tablet 500 mg PO BID PRN (Reason: pain) 10 Days Qty: 20 0RF acetaminophen [Tylenol Extra Strength] 500 mg tablet 500 mg PO Q6H PRN (Reason: pain or fever) Qty: 20 0RF famotidine [Pepcid] 20 mg tablet 20 mg PO BID Qty: 40 0RF prednisone 20 mg tablet 40 mg PO DAILY Qty: 10 0RF lidocaine [Lidoderm] 5 % adhesive patch,medicated 1 patch topical DAILY Qty: 15 0RF Rx Instructions: leave on most painful area for up to 12 hrs naproxen 500 mg tablet 500 mg PO BID PRN (Reason: pain) Qty: 60 0RF <Jo Charlton NP - Last Filed: 05/11/22 18:39> Interventions: ED Discharge Assessment Last Done: 05/11/22 20:35 <Jo Charlton NP - Last Filed: 05/11/22 18:39> Discharge Date/Time: 05/11/22 20:35 <Jo Charlton NP - Last Filed: 05/11/22 18:39>
[2022-05-11 18:39] VITALS: BP 136/71; PULSE 95; RESP 18; TEMP 37.2; O2SAT 98; BMI 42.9
--- NOTE | 2022-05-11 18:39 | ECG_ITS ---
Test Reason : CP Blood Pressure : / mmHG Vent. Rate : 090 BPM Atrial Rate : 090 BPM P-R Int : 132 ms QRS Dur : 070 ms QT Int : 342 ms P-R-T Axes : 044 046 026 degrees QTc Int : 418 ms Normal sinus rhythm Normal ECG When compared with ECG of 19-MAY-2021 16:10, No significant change was found Referred By: Jo Charlton Electronically Signed By:BURT WARD MD
[2022-05-11 19:45] LABS: MANUAL DIFF FLAG NO
[2022-05-11 19:50] LABS: Basophils Percent Auto 0.3 % (0-2); Eosinophils Absolute Auto 0.1 X10*3/uL (0.0-0.4); Eosinophils Percent Auto 1.1 % (0-4); Hematocrit 41.4 % (42.0-52.0); Hemoglobin 13.9 g/dl (14.0-18.0); Imm Gran Abs Auto 0.03 X10*3/uL (0.00-0.03); Imm Gran Pct Auto 0.3 % (0.0-0.4); Lymphocytes Absolute Auto 1.8 X10*3/uL (1.2-4.9); Lymphocytes Percent Auto 17.5 % (20-40); Mean Corpuscular HGB Conc 33.6 g/dl (31.0-36.0); Mean Corpuscular Hemoglobin 30.3 pg (27.0-33.0); Mean Corpuscular Volume 90.2 fL (80.0-98.0); Mean Platelet Volume 12.5 fL (9.4-12.4); Monocytes Absolute Auto 0.6 X10*3/uL (0.1-1.2); Monocytes Percent Auto 5.9 % (2-11); Neutrophils Absolute Auto 7.6 x10*3/uL (2.0-8.3); Neutrophils Percent Auto 74.9 % (45-73); Platelet Count 219 X10*3/uL (160-400); Red Blood Count 4.59 X10*6/uL (4.60-5.80); Red Cell Distribution Width 12.3 % (11.0-16.0); White Blood Count 10.2 X10*3/uL (4.8-10.8)
[2022-05-11 20:01] LABS: COVID-19 Test Negative (Negative)
[2022-05-11 20:06] LABS: Sodium 134 mmol/L (135-145)
[2022-05-11 20:08] LABS: Alanine Aminotransferase 40 U/L (0-40); Albumin Level 4.1 g/dL (3.5-5.0); Alkaline Phosphatase 103 U/L (39-117); Anion Gap 6 (12-20); Aspartate Amino Transferase 23 U/L (5-37); Bilirubin Direct < 0.2 mg/dL (0.0-0.5); Bilirubin Total 0.2 mg/dL (0.0-1.0); Blood Urea Nitrogen 22 mg/dL (9-16); Calcium 9.4 mg/dL (8.4-10.2); Carbon Dioxide 24 mmol/L (22-29); Chloride 108 mmol/L (96-108); Creatinine Clr Calc Pharmacy 99.1; Estimated Glomerular Filt Rate > 60; Glucose Random 128 mg/dL (60-115); Potassium 3.8 mmol/L (3.3-5.1); Total Protein 6.5 g/dL (6.5-8.0); Troponin-I High Sensitivity < 3.5 ng/L (<3.5-35.0)
[2022-05-11] MEDS: Ibuprofen 600 MG TABLET PO (20:26)
== END 2022-05-11 20:35 | disposition home or self-care (01) ==
PROVIDERS: Nurse Practitioner Family; Emergency Provider Internal Medicine
DX: R07.89 Other chest pain (principal); M79.10 Myalgia, unspecified site; Z20.822 Contact with and (suspected) exposure to COVID-19; Z79.899 Other long term (current) drug therapy
CPT/HCPCS: 71046; 80048; 80076; 84484; 85025; 87635; 93005; 99283

== ENCOUNTER 2022-05-27 17:42 | Emergency (ER) | payer MEDICARE, MEDICAID, SELFPAY ==
--- NOTE | ~2022-05-27 | XR_ITS ---
EXAMINATION: XR CHEST CLINICAL INFORMATION: Chest pain COMPARISON: Chest 05/11/2022 TECHNIQUE: 2 views of the chest were obtained. FINDINGS: No significant abnormality is noted involving the heart, lungs, mediastinum, bony thorax or soft tissues. XR/XR chest 2V IMPRESSION: Unremarkable chest examination.
[2022-05-27 18:10] VITALS: BP 116/56; PULSE 79; RESP 18; TEMP 36.7; O2SAT 98; BMI 34.3
--- NOTE | 2022-05-27 18:10 | ED_ITS ---
HPI - Chest Pain General Chief Complaint: Chest Pain <Tiffany Blank CNP - Last Filed: 05/27/22 18:13> Stated Complaint: chest pain <Tiffany Blank CNP - Last Filed: 05/27/22 18:13> Time Seen by Provider: 05/28/22 00:42 <Tiffany Blank CNP - Last Filed: 05/27/22 18:13> Source: patient <Nguyễn Dela Cruz MD - Last Filed: 05/28/22 01:00> Mode of arrival: ambulatory <Nguyễn Dela Cruz MD - Last Filed: 05/28/22 01:00> Limitations: no limitations <Nguyễn Dela Cruz MD - Last Filed: 05/28/22 01:00> History of Present Illness HPI narrative: Patient has frequent right-sided chest pain since 11/27 was seen here before comes here for similar pain on the right side sharp in character get worse on movement and palpation no shortness of breath no cough no diaphoresis no nausea no vomiting no risk factor for coronary disease nonsmoker no substance abuse no family history of sudden cardiac . Patient had labs and cardiogram ordered by the provider in the triage showed normal l high sensitive troponin and normal EKG <Nguyễn Dela Cruz MD - Last Filed: 05/28/22 01:00> Related Data Home Medications: Previous Rx's Medication Instructions Recorded famotidine 20 mg tablet (Pepcid) 20 mg PO BID #40 tabs 07/14/20 lidocaine 5 % topical patch 1 patch topical DAILY #15 ea 07/18/20 (Lidoderm) prednisone 20 mg tablet 40 mg PO DAILY #10 tabs 07/18/20 cyclobenzaprine 10 mg tablet 10 mg PO TID PRN muscle spasm #10 08/01/20 tabs ibuprofen 600 mg tablet 600 mg PO Q8H PRN pain #10 tabs 08/01/20 acetaminophen 500 mg tablet 500 mg PO Q6H PRN pain or fever 02/11/21 (Tylenol Extra Strength) #20 tabs cyclobenzaprine 5 mg tablet 5 mg PO Q8H PRN pain (scale score 02/11/21 7-10) 5 days #14 tabs lidocaine 5 % topical patch 1 patch topical DAILY PRN pain #30 02/11/21 (Lidoderm) ea naproxen 500 mg tablet 500 mg PO BID PRN pain 10 days #20 02/11/21 tabs naproxen 500 mg tablet 500 mg PO BID PRN pain #60 tabs 05/16/21 ibuprofen 600 mg tablet 600 mg PO Q6H PRN fever or pain 05/11/22 #30 tabs ibuprofen 600 mg tablet 600 mg PO Q6H PRN fever or pain 05/28/22 #30 tabs <Tiffany Blank CNP - Last Filed: 05/27/22 18:13> Allergies/Adverse Reactions: Allergies Allergy/AdvReac Type Severity Reaction Status Date / Time No Known Allergies Allergy Verified 06/12/21 10:54 <Tiffany Blank CNP - Last Filed: 05/27/22 18:13> Review of Systems Review of Systems: Yes all other systems are reviewed and are negative <Nguyễn Dela Cruz MD - Last Filed: 05/28/22 01:00> [facility] Past Medical History Medical History: Medical History Patient denies medical problems <Tiffany Blank CNP - Last Filed: 05/27/22 18:13> Social History Social History: Social History Alcohol intake: current Alcohol type: beer Patient Tobacco Use Status: Never used Tobacco Smoked in Last 30 Days: No Use of substances other than those prescribed or required for medical reasons: No Advance Directives: No Advance Directives Information Provided: No Current occupational status: disabled Current occupation: Rt handed <Tiffany Blank CNP - Last Filed: 05/27/22 18:13> Physical Exam Vital Signs: Vital Signs: Last Vital Signs Temp 98.0 F 05/27/22 18:10 Pulse 79 05/27/22 18:10 Resp 18 05/27/22 18:10 BP 116/56 L 05/27/22 18:10 Pulse Ox 98 05/27/22 18:10 O2 Del Method 05/27/22 18:10 BMI result Body Mass Index 34.3 <Tiffany Blank CNP - Last Filed: 05/27/22 18:13> Vital Signs: Last Vital Signs Temp 98.0 F 05/27/22 18:10 Pulse 79 05/27/22 18:10 Resp 18 05/27/22 18:10 BP 116/56 L 05/27/22 18:10 Pulse Ox 98 05/27/22 18:10 O2 Del Method 05/27/22 18:10 BMI result Body Mass Index 34.3 <Nguyễn Dela Cruz MD - Last Filed: 05/28/22 01:00> Appearance: Alert. Oriented X3. No acute distress. ENT: Pharynx normal. Oral Mucosa moist Neck: Normal inspection. Neck supple. CVS: Normal heart rate and rhythm. Pulses normal. Respiratory: No respiratory distress. Right chest wall tenderness Equal air entry bilateral, no wheezing/rales/rhonchi Abdomen: Soft and nontender. Bowel sounds are present, no mass palpable, no CVA tenderness Skin: Skin warm and dry. Normal skin color. Normal skin turgor. Extremities: No lower extremity edema. No calf tenderness Neuro: Oriented X 3. No motor deficit. <Nguyễn Dela Cruz MD - Last Filed: 05/28/22 01:00> Course Course Course Narrative: RME: Patient is a 41-year-old male who presents emergency department for evaluation of right anterior chest pain. Pain is intermittent, denies exacerbating factors. Pain is relieved with ibuprofen but then returns again. States that he has had similar pain like this in the past and was told that everything was fine. Was seen in the emergency department a couple of weeks ago. Did not follow up with his primary care provider, stating he was unable to get an appointment. Vital signs stable, over appearing, nontoxic. Denies any pertinent past medical history. Plan: EKG, labs, chest x-ray, COVID-19/influenza screening. Defer additional HPI ROS and PE to primary provider. <Tiffany Blank CNP - Last Filed: 05/27/22 18:13> Medications Administered Discontinued Medications Generic Name Dose Route Start Last Admin Trade Name Freq PRN Reason Stop Dose Admin Ibuprofen 600 mg 05/28/22 00:47 05/28/22 00:52 Ibuprofen 600 Mg Tablet PO 05/28/22 00:48 600 mg ONCE ONE Administration <Tiffany Blank CNP - Last Filed: 05/27/22 18:13> Medications Administered Discontinued Medications Generic Name Dose Route Start Last Admin Trade Name Zackary PRN Reason Stop Dose Admin Ibuprofen 600 mg 05/28/22 00:47 05/28/22 00:52 Ibuprofen 600 Mg Tablet PO 05/28/22 00:48 600 mg ONCE ONE Administration <Nguyễn Dela Cruz MD - Last Filed: 05/28/22 01:00> Medical Decision Making Medical Decision Making [facility] Narrative: Patient with heart score of 0 atypical chest pain normal cardiogram normal i-STAT troponin pain for more than 3 days in duration discharge patient home advised to use NSAID <Nguyễn Dela Cruz MD - Last Filed: 05/28/22 01:00> Lab Data [facility] Lab Attestation statement: I reviewed the patient's lab results. <Nguyễn Dela Cruz MD - Last Filed: 05/28/22 01:00> Result Diagrams: : 05/27/22 18:46 05/27/22 18:46 <Tiffany Blank CNP - Last Filed: 05/27/22 18:13> Labs: Lab Results 05/27/22 05/27/22 05/27/22 Range/Units 18:46 18:46 18:46 WBC 10.4 (4.8-10.8) X10*3/uL RBC 4.58 L (4.60-5.80) X10*6/uL Hgb 13.9 L (14.0-18.0) g/dl Hct 41.4 L (42.0-52.0) % MCV 90.4 (80.0-98.0) fL MCH 30.3 (27.0-33.0) pg MCHC 33.6 (31.0-36.0) g/dl RDW 11.7 (11.0-16.0) % Plt Count 253 (160-400) X10*3/uL MPV 11.7 (9.4-12.4) fL Immature Gran % (Auto) 0.4 (0.0-0.4) % Neut % (Auto) 67.6 (45-73) % Lymph % (Auto) 23.9 (20-40) % [place] % (Auto) 6.4 (2-11) % Eos % (Auto) 1.3 (0-4) % Baso % (Auto) 0.4 (0-2) % Lymph # (Auto) 2.5 (1.2-4.9) X10*3/uL [place] # (Auto) 0.7 (0.1-1.2) X10*3/uL Eos # (Auto) 0.1 (0.0-0.4) X10*3/uL Baso # (Auto) 0.0 (0.0-0.2) X10*3/uL Abs Immat Gran (auto) 0.04 H (0.00-0.03) X10*3/uL Absolute Neuts (auto) 7.0 (2.0-8.3) x10*3/uL Absolute Nucleated RBC 0.000 (0.0-0.012) X10*3/uL Nucleated RBC % (auto) 0.0 (0.0-0.2) /100WBC Sodium 140 (135-145) mmol/L Potassium 4.4 (3.3-5.1) mmol/L Chloride 106 (96-108) mmol/L Carbon Dioxide 28 (22-29) mmol/L Anion Gap 10 L (12-20) BUN 16 (9-16) mg/dL Creatinine 1.18 (0.5-1.4) mg/dL Estim Creat Clear Calc 82.8 Estimated GFR > 60 Random Glucose 82 (60-115) mg/dL Calcium 9.3 (8.4-10.2) mg/dL Total Bilirubin 0.2 (0.0-1.0) mg/dL AST 23 (5-37) U/L ALT 37 (0-40) U/L Alkaline Phosphatase 109 (39-117) U/L Troponin I High Sens < 3.5 (<3.5-35.0) ng/L Total Protein 6.9 (6.5-8.0) g/dL Albumin 4.2 (3.5-5.0) g/dL Lipase 22 (8-78) U/L COVID-19 (VIRI) (Negative) COVID-19 Clin Com Influenza Type A (BAILEE) (Negative) Influenza Type B (BAILEE) (Negative) Influenza A & B Note 05/27/22 05/27/22 Range/Units 18:47 18:47 WBC (4.8-10.8) X10*3/uL RBC (4.60-5.80) X10*6/uL Hgb (14.0-18.0) g/dl Hct (42.0-52.0) % MCV (80.0-98.0) fL MCH (27.0-33.0) pg MCHC (31.0-36.0) g/dl RDW (11.0-16.0) % Plt Count (160-400) X10*3/uL MPV (9.4-12.4) fL Immature Gran % (Auto) (0.0-0.4) % Neut % (Auto) (45-73) % Lymph % (Auto) (20-40) % [place] % (Auto) (2-11) % Eos % (Auto) (0-4) % Baso % (Auto) (0-2) % Lymph # (Auto) (1.2-4.9) X10*3/uL [place] # (Auto) (0.1-1.2) X10*3/uL Eos # (Auto) (0.0-0.4) X10*3/uL Baso # (Auto) (0.0-0.2) X10*3/uL Abs Immat Gran (auto) (0.00-0.03) X10*3/uL Absolute Neuts (auto) (2.0-8.3) x10*3/uL Absolute Nucleated RBC (0.0-0.012) X10*3/uL Nucleated RBC % (auto) (0.0-0.2) /100WBC Sodium (135-145) mmol/L Potassium (3.3-5.1) mmol/L Chloride (96-108) mmol/L Carbon Dioxide (22-29) mmol/L Anion Gap (12-20) BUN (9-16) mg/dL Creatinine (0.5-1.4) mg/dL Estim Creat Clear Calc Estimated GFR Random Glucose (60-115) mg/dL Calcium (8.4-10.2) mg/dL Total Bilirubin (0.0-1.0) mg/dL AST (5-37) U/L ALT (0-40) U/L Alkaline Phosphatase (39-117) U/L Troponin I High Sens (<3.5-35.0) ng/L Total Protein (6.5-8.0) g/dL Albumin (3.5-5.0) g/dL Lipase (8-78) U/L COVID-19 (VIRI) Negative (Negative) COVID-19 Clin Com See Note Influenza Type A (BAILEE) Negative (Negative) Influenza Type B (BAILEE) Negative (Negative) Influenza A & B Note See Note <Tiffany Blank CNP - Last Filed: 05/27/22 18:13> Lab Results 05/27/22 05/27/22 05/27/22 Range/Units 18:46 18:46 18:46 WBC 10.4 (4.8-10.8) X10*3/uL RBC 4.58 L (4.60-5.80) X10*6/uL Hgb 13.9 L (14.0-18.0) g/dl Hct 41.4 L (42.0-52.0) % MCV 90.4 (80.0-98.0) fL MCH 30.3 (27.0-33.0) pg MCHC 33.6 (31.0-36.0) g/dl RDW 11.7 (11.0-16.0) % Plt Count 253 (160-400) X10*3/uL MPV 11.7 (9.4-12.4) fL Immature Gran % (Auto) 0.4 (0.0-0.4) % Neut % (Auto) 67.6 (45-73) % Lymph % (Auto) 23.9 (20-40) % [place] % (Auto) 6.4 (2-11) % Eos % (Auto) 1.3 (0-4) % Baso % (Auto) 0.4 (0-2) % Lymph # (Auto) 2.5 (1.2-4.9) X10*3/uL [place] # (Auto) 0.7 (0.1-1.2) X10*3/uL Eos # (Auto) 0.1 (0.0-0.4) X10*3/uL Baso # (Auto) 0.0 (0.0-0.2) X10*3/uL Abs Immat Gran (auto) 0.04 H (0.00-0.03) X10*3/uL Absolute Neuts (auto) 7.0 (2.0-8.3) x10*3/uL Absolute Nucleated RBC 0.000 (0.0-0.012) X10*3/uL Nucleated RBC % (auto) 0.0 (0.0-0.2) /100WBC Sodium 140 (135-145) mmol/L Potassium 4.4 (3.3-5.1) mmol/L Chloride 106 (96-108) mmol/L Carbon Dioxide 28 (22-29) mmol/L Anion Gap 10 L (12-20) BUN 16 (9-16) mg/dL Creatinine 1.18 (0.5-1.4) mg/dL Estim Creat Clear Calc 82.8 Estimated GFR > 60 Random Glucose 82 (60-115) mg/dL Calcium 9.3 (8.4-10.2) mg/dL Total Bilirubin 0.2 (0.0-1.0) mg/dL AST 23 (5-37) U/L ALT 37 (0-40) U/L Alkaline Phosphatase 109 (39-117) U/L Troponin I High Sens < 3.5 (<3.5-35.0) ng/L Total Protein 6.9 (6.5-8.0) g/dL Albumin 4.2 (3.5-5.0) g/dL Lipase 22 (8-78) U/L COVID-19 (VIRI) (Negative) COVID-19 Clin Com Influenza Type A (BAILEE) (Negative) Influenza Type B (BAILEE) (Negative) Influenza A & B Note 05/27/22 05/27/22 Range/Units 18:47 18:47 WBC (4.8-10.8) X10*3/uL RBC (4.60-5.80) X10*6/uL Hgb (14.0-18.0) g/dl Hct (42.0-52.0) % MCV (80.0-98.0) fL MCH (27.0-33.0) pg MCHC (31.0-36.0) g/dl RDW (11.0-16.0) % Plt Count (160-400) X10*3/uL MPV (9.4-12.4) fL Immature Gran % (Auto) (0.0-0.4) % Neut % (Auto) (45-73) % Lymph % (Auto) (20-40) % [place] % (Auto) (2-11) % Eos % (Auto) (0-4) % Baso % (Auto) (0-2) % Lymph # (Auto) (1.2-4.9) X10*3/uL [place] # (Auto) (0.1-1.2) X10*3/uL Eos # (Auto) (0.0-0.4) X10*3/uL Baso # (Auto) (0.0-0.2) X10*3/uL Abs Immat Gran (auto) (0.00-0.03) X10*3/uL Absolute Neuts (auto) (2.0-8.3) x10*3/uL Absolute Nucleated RBC (0.0-0.012) X10*3/uL Nucleated RBC % (auto) (0.0-0.2) /100WBC Sodium (135-145) mmol/L Potassium (3.3-5.1) mmol/L Chloride (96-108) mmol/L Carbon Dioxide (22-29) mmol/L Anion Gap (12-20) BUN (9-16) mg/dL Creatinine (0.5-1.4) mg/dL Estim Creat Clear Calc Estimated GFR Random Glucose (60-115) mg/dL Calcium (8.4-10.2) mg/dL Total Bilirubin (0.0-1.0) mg/dL AST (5-37) U/L ALT (0-40) U/L Alkaline Phosphatase (39-117) U/L Troponin I High Sens (<3.5-35.0) ng/L Total Protein (6.5-8.0) g/dL Albumin (3.5-5.0) g/dL Lipase (8-78) U/L COVID-19 (VIRI) Negative (Negative) COVID-19 Clin Com See Note Influenza Type A (BAILEE) Negative (Negative) Influenza Type B (BAILEE) Negative (Negative) Influenza A & B Note See Note <Nguyễn Dela Cruz MD - Last Filed: 05/28/22 01:00> Independent Interpretation I performed an independent interpretation of an: EKG <Nguyễn Dela Cruz MD - Last Filed: 05/28/22 01:00> Interpretation: Normal sinus rhythm heart rate 75 beats per minute normal interval normal axis no acute ST-T changes no acute ischemia <Nguyễn Dela Cruz MD - Last Filed: 05/28/22 01:00> Discharge Plan Discharge Clinical Impression: Chest pain, musculoskeletal <Tiffany Blank CNP - Last Filed: 05/27/22 18:13> Patient Disposition: Home, Self-Care <Tiffany Blank CNP - Last Filed: 05/27/22 18:13> Instructions: Chest Wall Pain (ED) <Tiffany Blank CNP - Last Filed: 05/27/22 18:13> Additional Instructions: Your right-sided chest pain is not from the heart likely musculoskeletal Take ibuprofen for pain <Tiffany Blank CNP - Last Filed: 05/27/22 18:13> Prescriptions: New ibuprofen 600 mg tablet 600 mg PO Q6H PRN (Reason: fever or pain) Qty: 30 0RF No Action cyclobenzaprine 10 mg tablet 10 mg PO TID PRN (Reason: muscle spasm) Qty: 10 0RF ibuprofen 600 mg tablet 600 mg PO Q8H PRN (Reason: pain) Qty: 10 0RF lidocaine [Lidoderm] 5 % adhesive patch,medicated 1 patch topical DAILY MDD remove after 12 hours PRN (Reason: pain) Qty: 30 0RF Rx Instructions: leave on most painful area for up to 12 hrs cyclobenzaprine 5 mg tablet 5 mg PO Q8H PRN (Reason: pain (scale score 7-10)) 5 Days Qty: 14 0RF naproxen 500 mg tablet 500 mg PO BID PRN (Reason: pain) 10 Days Qty: 20 0RF acetaminophen [Tylenol Extra Strength] 500 mg tablet 500 mg PO Q6H PRN (Reason: pain or fever) Qty: 20 0RF famotidine [Pepcid] 20 mg tablet 20 mg PO BID Qty: 40 0RF prednisone 20 mg tablet 40 mg PO DAILY Qty: 10 0RF lidocaine [Lidoderm] 5 % adhesive patch,medicated 1 patch topical DAILY Qty: 15 0RF Rx Instructions: leave on most painful area for up to 12 hrs ibuprofen 600 mg tablet 600 mg PO Q6H PRN (Reason: fever or pain) Qty: 30 0RF naproxen 500 mg tablet 500 mg PO BID PRN (Reason: pain) Qty: 60 0RF <Tiffany Blank CNP - Last Filed: 05/27/22 18:13> Interventions: ED Discharge Assessment Last Done: 05/28/22 00:56 <Tiffany Blank CNP - Last Filed: 05/27/22 18:13>
--- NOTE | 2022-05-27 18:14 | ECG_ITS ---
Test Reason : CHEST PAIN Blood Pressure : / mmHG Vent. Rate : 075 BPM Atrial Rate : 075 BPM P-R Int : 142 ms QRS Dur : 072 ms QT Int : 352 ms P-R-T Axes : 047 047 023 degrees QTc Int : 393 ms Normal sinus rhythm Normal ECG When compared with ECG of 11-MAY-2022 18:40, No significant change was found Referred By: Tiffany Blank Electronically Signed By:Abel King
[2022-05-27 18:52] LABS: MANUAL DIFF FLAG NO
[2022-05-27 18:54] LABS: Basophils Percent Auto 0.4 % (0-2); Eosinophils Absolute Auto 0.1 X10*3/uL (0.0-0.4); Eosinophils Percent Auto 1.3 % (0-4); Hematocrit 41.4 % (42.0-52.0); Hemoglobin 13.9 g/dl (14.0-18.0); Imm Gran Abs Auto 0.04 X10*3/uL (0.00-0.03); Imm Gran Pct Auto 0.4 % (0.0-0.4); Lymphocytes Absolute Auto 2.5 X10*3/uL (1.2-4.9); Lymphocytes Percent Auto 23.9 % (20-40); Mean Corpuscular HGB Conc 33.6 g/dl (31.0-36.0); Mean Corpuscular Hemoglobin 30.3 pg (27.0-33.0); Mean Corpuscular Volume 90.4 fL (80.0-98.0); Mean Platelet Volume 11.7 fL (9.4-12.4); Monocytes Absolute Auto 0.7 X10*3/uL (0.1-1.2); Monocytes Percent Auto 6.4 % (2-11); Neutrophils Percent Auto 67.6 % (45-73); Platelet Count 253 X10*3/uL (160-400); Red Blood Count 4.58 X10*6/uL (4.60-5.80); Red Cell Distribution Width 11.7 % (11.0-16.0); White Blood Count 10.4 X10*3/uL (4.8-10.8)
[2022-05-27 19:07] LABS: COVID-19 Test Negative (Negative); IDNOW Serial# 9DB6401D
[2022-05-27 19:15] LABS: IDNOW Serial# 16C4AD1C
[2022-05-27 19:16] LABS: Influenza A Negative (Negative); Influenza B2 Negative (Negative)
[2022-05-27 19:26] LABS: Alanine Aminotransferase 37 U/L (0-40); Albumin Level 4.2 g/dL (3.5-5.0); Alkaline Phosphatase 109 U/L (39-117); Anion Gap 10 (12-20); Aspartate Amino Transferase 23 U/L (5-37); Bilirubin Total 0.2 mg/dL (0.0-1.0); Blood Urea Nitrogen 16 mg/dL (9-16); Calcium 9.3 mg/dL (8.4-10.2); Carbon Dioxide 28 mmol/L (22-29); Chloride 106 mmol/L (96-108); Creatinine Clr Calc Pharmacy 82.8; Estimated Glomerular Filt Rate > 60; Glucose Random 82 mg/dL (60-115); Lipase 22 U/L (8-78); Potassium 4.4 mmol/L (3.3-5.1); Sodium 140 mmol/L (135-145); Total Protein 6.9 g/dL (6.5-8.0)
[2022-05-27 19:33] LABS: Troponin-I High Sensitivity < 3.5 ng/L (<3.5-35.0)
--- NOTE | 2022-05-28 00:47 | PC.NURSE ---
This short story writer assumed care of this PT at 0045.
[2022-05-28] MEDS: Ibuprofen 600 MG TABLET PO (00:52)
--- NOTE | 2022-05-28 00:56 | ED.CHESTPAIN ---
HPI - Chest Pain General Chief Complaint: Chest Pain Stated Complaint: chest pain Time Seen by Provider: 05/28/22 00:42 Related Data Previous Rx's Medication Instructions Recorded famotidine 20 mg tablet (Pepcid) 20 mg PO BID #40 tabs 07/14/20 lidocaine 5 % topical patch 1 patch topical DAILY #15 ea 07/18/20 (Lidoderm) prednisone 20 mg tablet 40 mg PO DAILY #10 tabs 07/18/20 cyclobenzaprine 10 mg tablet 10 mg PO TID PRN muscle spasm #10 08/01/20 tabs ibuprofen 600 mg tablet 600 mg PO Q8H PRN pain #10 tabs 08/01/20 acetaminophen 500 mg tablet 500 mg PO Q6H PRN pain or fever 02/11/21 (Tylenol Extra Strength) #20 tabs cyclobenzaprine 5 mg tablet 5 mg PO Q8H PRN pain (scale score 02/11/21 7-10) 5 days #14 tabs lidocaine 5 % topical patch 1 patch topical DAILY PRN pain #30 02/11/21 (Lidoderm) ea naproxen 500 mg tablet 500 mg PO BID PRN pain 10 days #20 02/11/21 tabs naproxen 500 mg tablet 500 mg PO BID PRN pain #60 tabs 05/16/21 ibuprofen 600 mg tablet 600 mg PO Q6H PRN fever or pain 05/11/22 #30 tabs ibuprofen 600 mg tablet 600 mg PO Q6H PRN fever or pain 05/28/22 #30 tabs Allergies Allergy/AdvReac Type Severity Reaction Status Date / Time No Known Allergies Allergy Verified 06/12/21 10:54 [facility] Past Medical History Medical History Patient denies medical problems Social History Social History Alcohol intake: current Alcohol type: beer Patient Tobacco Use Status: Never used Tobacco Smoked in Last 30 Days: No Use of substances other than those prescribed or required for medical reasons: No Advance Directives: No Advance Directives Information Provided: No Current occupational status: disabled Current occupation: Rt handed Physical Exam Vital Signs: Vital Signs: Last Vital Signs Temp 98.0 F 05/27/22 18:10 Pulse 79 05/27/22 18:10 Resp 18 05/27/22 18:10 BP 116/56 L 05/27/22 18:10 Pulse Ox 98 05/27/22 18:10 O2 Del Method 05/27/22 18:10 BMI result Body Mass Index 34.3 Medications Administered Discontinued Medications Generic Name Dose Route Start Last Admin Trade Name Zackary PRN Reason Stop Dose Admin Ibuprofen 600 mg 05/28/22 00:47 05/28/22 00:52 Ibuprofen 600 Mg Tablet PO 05/28/22 00:48 600 mg ONCE ONE Administration Medical Decision Making Lab Data Result Diagrams: 05/27/22 18:46 05/27/22 18:46 Labs: Lab Results 05/27/22 05/27/22 05/27/22 Range/Units 18:46 18:46 18:46 WBC 10.4 (4.8-10.8) X10*3/uL RBC 4.58 L (4.60-5.80) X10*6/uL Hgb 13.9 L (14.0-18.0) g/dl Hct 41.4 L (42.0-52.0) % MCV 90.4 (80.0-98.0) fL MCH 30.3 (27.0-33.0) pg MCHC 33.6 (31.0-36.0) g/dl RDW 11.7 (11.0-16.0) % Plt Count 253 (160-400) X10*3/uL MPV 11.7 (9.4-12.4) fL Immature Gran % (Auto) 0.4 (0.0-0.4) % Neut % (Auto) 67.6 (45-73) % Lymph % (Auto) 23.9 (20-40) % [place] % (Auto) 6.4 (2-11) % Eos % (Auto) 1.3 (0-4) % Baso % (Auto) 0.4 (0-2) % Lymph # (Auto) 2.5 (1.2-4.9) X10*3/uL [place] # (Auto) 0.7 (0.1-1.2) X10*3/uL Eos # (Auto) 0.1 (0.0-0.4) X10*3/uL Baso # (Auto) 0.0 (0.0-0.2) X10*3/uL Abs Immat Gran (auto) 0.04 H (0.00-0.03) X10*3/uL Absolute Neuts (auto) 7.0 (2.0-8.3) x10*3/uL Absolute Nucleated RBC 0.000 (0.0-0.012) X10*3/uL Nucleated RBC % (auto) 0.0 (0.0-0.2) /100WBC Sodium 140 (135-145) mmol/L Potassium 4.4 (3.3-5.1) mmol/L Chloride 106 (96-108) mmol/L Carbon Dioxide 28 (22-29) mmol/L Anion Gap 10 L (12-20) BUN 16 (9-16) mg/dL Creatinine 1.18 (0.5-1.4) mg/dL Estim Creat Clear Calc 82.8 Estimated GFR > 60 Random Glucose 82 (60-115) mg/dL Calcium 9.3 (8.4-10.2) mg/dL Total Bilirubin 0.2 (0.0-1.0) mg/dL AST 23 (5-37) U/L ALT 37 (0-40) U/L Alkaline Phosphatase 109 (39-117) U/L Troponin I High Sens < 3.5 (<3.5-35.0) ng/L Total Protein 6.9 (6.5-8.0) g/dL Albumin 4.2 (3.5-5.0) g/dL Lipase 22 (8-78) U/L COVID-19 (VIRI) (Negative) COVID-19 Clin Com Influenza Type A (BAILEE) (Negative) Influenza Type B (BAILEE) (Negative) Influenza A & B Note 05/27/22 05/27/22 Range/Units 18:47 18:47 WBC (4.8-10.8) X10*3/uL RBC (4.60-5.80) X10*6/uL Hgb (14.0-18.0) g/dl Hct (42.0-52.0) % MCV (80.0-98.0) fL MCH (27.0-33.0) pg MCHC (31.0-36.0) g/dl RDW (11.0-16.0) % Plt Count (160-400) X10*3/uL MPV (9.4-12.4) fL Immature Gran % (Auto) (0.0-0.4) % Neut % (Auto) (45-73) % Lymph % (Auto) (20-40) % [place] % (Auto) (2-11) % Eos % (Auto) (0-4) % Baso % (Auto) (0-2) % Lymph # (Auto) (1.2-4.9) X10*3/uL [place] # (Auto) (0.1-1.2) X10*3/uL Eos # (Auto) (0.0-0.4) X10*3/uL Baso # (Auto) (0.0-0.2) X10*3/uL Abs Immat Gran (auto) (0.00-0.03) X10*3/uL Absolute Neuts (auto) (2.0-8.3) x10*3/uL Absolute Nucleated RBC (0.0-0.012) X10*3/uL Nucleated RBC % (auto) (0.0-0.2) /100WBC Sodium (135-145) mmol/L Potassium (3.3-5.1) mmol/L Chloride (96-108) mmol/L Carbon Dioxide (22-29) mmol/L Anion Gap (12-20) BUN (9-16) mg/dL Creatinine (0.5-1.4) mg/dL Estim Creat Clear Calc Estimated GFR Random Glucose (60-115) mg/dL Calcium (8.4-10.2) mg/dL Total Bilirubin (0.0-1.0) mg/dL AST (5-37) U/L ALT (0-40) U/L Alkaline Phosphatase (39-117) U/L Troponin I High Sens (<3.5-35.0) ng/L Total Protein (6.5-8.0) g/dL Albumin (3.5-5.0) g/dL Lipase (8-78) U/L COVID-19 (VIRI) Negative (Negative) COVID-19 Clin Com See Note Influenza Type A (BAILEE) Negative (Negative) Influenza Type B (BAILEE) Negative (Negative) Influenza A & B Note See Note Discharge Plan Discharge Clinical Impression: Chest pain, musculoskeletal Patient Disposition: Home, Self-Care Instructions: Chest Wall Pain (ED) Additional Instructions: Your right-sided chest pain is not from the heart likely musculoskeletal Take ibuprofen for pain Prescriptions: New ibuprofen 600 mg tablet 600 mg PO Q6H PRN (Reason: fever or pain) Qty: 30 0RF No Action cyclobenzaprine 10 mg tablet 10 mg PO TID PRN (Reason: muscle spasm) Qty: 10 0RF ibuprofen 600 mg tablet 600 mg PO Q8H PRN (Reason: pain) Qty: 10 0RF lidocaine [Lidoderm] 5 % adhesive patch,medicated 1 patch topical DAILY MDD remove after 12 hours PRN (Reason: pain) Qty: 30 0RF Rx Instructions: leave on most painful area for up to 12 hrs cyclobenzaprine 5 mg tablet 5 mg PO Q8H PRN (Reason: pain (scale score 7-10)) 5 Days Qty: 14 0RF naproxen 500 mg tablet 500 mg PO BID PRN (Reason: pain) 10 Days Qty: 20 0RF acetaminophen [Tylenol Extra Strength] 500 mg tablet 500 mg PO Q6H PRN (Reason: pain or fever) Qty: 20 0RF famotidine [Pepcid] 20 mg tablet 20 mg PO BID Qty: 40 0RF prednisone 20 mg tablet 40 mg PO DAILY Qty: 10 0RF lidocaine [Lidoderm] 5 % adhesive patch,medicated 1 patch topical DAILY Qty: 15 0RF Rx Instructions: leave on most painful area for up to 12 hrs ibuprofen 600 mg tablet 600 mg PO Q6H PRN (Reason: fever or pain) Qty: 30 0RF naproxen 500 mg tablet 500 mg PO BID PRN (Reason: pain) Qty: 60 0RF Interventions: ED Discharge Assessment Last Done: 05/28/22 00:56 Discharge Date/Time: 05/28/22 00:57
== END 2022-05-28 00:57 | disposition home or self-care (01) ==
PROVIDERS: Nurse Practitioner Family; Emergency Provider Internal Medicine; PCP Internal Medicine
DX: R07.89 Other chest pain (principal); Z20.822 Contact with and (suspected) exposure to COVID-19
CPT/HCPCS: 36415; 71046; 80053; 83690; 84484; 85025; 87502; 87635; 93005; 99283; 99285

== ENCOUNTER 2023-03-10 16:09 | Emergency (ER) | payer MEDICARE, MEDICAID, SELFPAY ==
[2023-03-10 16:11] VITALS: BP 112/62; PULSE 86; RESP 18; TEMP 36.7; O2SAT 96; BMI 35.9
--- NOTE | 2023-03-10 16:16 | ECG_ITS ---
Test Reason : CP Blood Pressure : / mmHG Vent. Rate : 072 BPM Atrial Rate : 072 BPM P-R Int : 138 ms QRS Dur : 074 ms QT Int : 370 ms P-R-T Axes : 043 038 016 degrees QTc Int : 405 ms Normal sinus rhythm Normal ECG When compared with ECG of 27-MAY-2022 18:37, No significant change was found Referred By: Generic ED Physician Electronically Signed By:DARBY SULLIVAN
[2023-03-10 16:41] LABS: MANUAL DIFF FLAG NO
[2023-03-10 16:56] LABS: Basophils Percent Auto 0.5 % (0-2); Eosinophils Absolute Auto 0.2 X10*3/uL (0.0-0.4); Hematocrit 42.5 % (42.0-52.0); Hemoglobin 14.5 g/dl (14.0-18.0); Imm Gran Abs Auto 0.04 X10*3/uL (0.00-0.03); Imm Gran Pct Auto 0.5 % (0.0-0.4); Lymphocytes Absolute Auto 2.3 X10*3/uL (1.2-4.9); Lymphocytes Percent Auto 25.5 % (20-40); Mean Corpuscular HGB Conc 34.1 g/dl (31.0-36.0); Mean Corpuscular Hemoglobin 30.9 pg (27.0-33.0); Mean Corpuscular Volume 90.6 fL (80.0-98.0); Mean Platelet Volume 12.9 fL (9.4-12.4); Monocytes Absolute Auto 0.7 X10*3/uL (0.1-1.2); Monocytes Percent Auto 7.4 % (2-11); Neutrophils Absolute Auto 5.7 x10*3/uL (2.0-8.3); Neutrophils Percent Auto 64.1 % (45-73); Platelet Count 225 X10*3/uL (160-400); Red Blood Count 4.69 X10*6/uL (4.60-5.80); Red Cell Distribution Width 11.9 % (11.0-16.0); White Blood Count 8.8 X10*3/uL (4.8-10.8)
[2023-03-10 16:59] LABS: Anion Gap 11 (12-20); Blood Urea Nitrogen 14 mg/dL (9-16); Calcium 9.4 mg/dL (8.4-10.2); Carbon Dioxide 26 mmol/L (22-29); Chloride 106 mmol/L (96-108); Creatinine Clr Calc Pharmacy 107.6; Estimated Glomerular Filt Rate > 60; Glucose Random 90 mg/dL (60-115); Potassium 4.2 mmol/L (3.3-5.1); Sodium 139 mmol/L (135-145)
[2023-03-10 17:07] LABS: Troponin-I High Sensitivity < 2.7 ng/L (<3.5-35.0)
== END 2023-03-10 19:28 | disposition left against medical advice (07) ==
PROVIDERS: Emergency Provider Emergency Medicine; PCP Internal Medicine
DX: R07.9 Chest pain, unspecified (principal)
CPT/HCPCS: 36415; 80048; 84484; 85025; 93005; 99283

== ENCOUNTER 2023-03-16 12:15 | Emergency (ER) | payer MEDICARE, MEDICAID, SELFPAY ==
[2023-03-16 13:10] VITALS: BP 113/63; PULSE 65; RESP 16; TEMP 36.2; O2SAT 98; BMI 35.9
--- NOTE | 2023-03-16 13:10 | ED.GENADULT ---
HPI - General Adult General Chief complaint: Chest Pain Stated complaint: chest pain Time Seen by Provider: 03/16/23 17:30 Source: patient Mode of arrival: ambulatory Limitations: no limitations History of Present Illness HPI narrative: Patient comes to the emergency room complaining of almost 1 year of chest pain. Patient states that this moment he has no chest pain, 2-3 days ago it got worse than usual but now it is back to baseline and even asymptomatic. Denies chest pain at this time, no shortness of breath, no abdominal pain. Patient being treated for GERD. Related Data Allergies Allergy/AdvReac Type Severity Reaction Status Date / Time No Known Allergies Allergy Verified 03/16/23 13:10 Review of Systems Review of Systems: Constitutional : No Weight loss, No Fever, No Chills, No Night Sweats, No Fatigue, No Malaise ENT/Mouth : No Hearing loss, No Ear Pain, No Nasal Congestion, No Sinus Pain, No Hoarseness, No sore throat, No Rhinorrhea, No Swallowing Difficulty Eyes: No Eye Pain, No Swelling, No Redness, No Foreign Body, No Discharge, No Vision Changes Cardiovascular : Chest pain for over a year but not at this time, No SOB, No Dyspnea on Exertion, No Orthopnea, No Edema, No Palpitations Respiratory : No Cough, No Sputum, No Wheezing, No Smoke Exposure, No Dyspnea Gastrointestinal : No Nausea, No Vomiting, No Diarrhea, No Constipation, No abdominal Pain, No Hematochezia, No Melena Genitourinary : no irregular bleeding, No Dysuria, No Urinary Frequency, No Hematuria, No Urinary Incontinence, No Urgency, No Flank Pain, No Urinary Flow Changes, No Hesitancy Musculoskeletal : No joint pain, No Myalgias, No Joint Swelling Skin : No Skin Lesions, No rash Neuro : No Weakness, No Numbness, No Paresthesias, No Loss of Consciousness, No Dizziness, No Headache Psych : No Anxiety/Panic, No Depression, No SI/HI/AH/VH, No Social Issues, Heme/Lymph: No Bruising, No Bleeding,No Lymphadenopathy Endocrine : No Polyuria, No Polydipsia, No Temperature Intolerance PMF Past Medical History Medical History (Updated 03/16/23 @ 17:59 by Anastasiia Wells MD) GERD (gastroesophageal reflux disease) Social History Social History Advance Directives: No Physical Exam ED Vital Signs: Vital Signs - 24 hr 03/16/23 13:10 Temperature 97.2 F Pulse Rate 65 Respiratory Rate 16 Blood Pressure 113/63 Pulse Oximetry 98 Oxygen Delivery Method Room Air BMI result Body Mass Index 35.9 Const Other: Appearance: Alert. Oriented X3. No acute distress. Eyes: Pupils equal, round and reactive to light. ENT: Pharynx normal. Neck: Normal inspection. Neck supple. No lymph nodes noted. No crepitus CVS: Normal heart rate and rhythm. Pulses normal. Normal S1 and S2 Respiratory: No respiratory distress. Breath sounds normal. No Wheezing. No rales Abdomen: Soft and nontender. No rigidity. No distention. Skin: Skin warm and dry. Normal skin color. Normal skin turgor. Extremities: No lower extremity edema. No Lacerations. No Rash Neuro: Oriented X 3. No motor deficit. No sensory deficit. Moving all extremities. No slurred speech. CN 2 through 12 grossly intact Psych: calm, cooperative, normal affect Course Course Course Narrative: RME performed by Eliz Freed PA-C. Patient is a 42 year old assigned male at presenting to the emergency department with chest pain. Patient states that this pain has been going on for close to a year. Labs, imaging, and swabs ordered. Patient placed back in the waiting room pending room availability and results. Medical Decision Making Medical Decision Making [facility] Narrative: -my interpretation of labs: Normal hematology, chemistry, troponin normal -my interpretation EKG: Normal sinus rhythm, heart rate 74, this segment depression elevation, no T-wave inversion, QTC 401 -patient likely having atypical chest pain versus GERD is, anxiety, less likely ACS Differential Diagnosis Differential Diagnoses: The differential diagnosis associated with the presentation includes (As above) Admission/Observation Consideration of admission/observation: Escalation of care including admission/observation considered (ACS suspected on arrival, admission considered) Lab Data [facility] Lab Attestation statement: I reviewed the patient's lab results. 03/16/23 14:10 03/16/23 14:10 Labs: Lab Results 03/16/23 Range/Units 14:10 WBC 8.8 (4.8-10.8) X10*3/uL RBC 4.91 (4.60-5.80) X10*6/uL Hgb 15.0 (14.0-18.0) g/dl Hct 44.6 (42.0-52.0) % MCV 90.8 (80.0-98.0) fL MCH 30.5 (27.0-33.0) pg MCHC 33.6 (31.0-36.0) g/dl RDW 12.0 (11.0-16.0) % Plt Count 221 (160-400) X10*3/uL MPV 12.0 (9.4-12.4) fL Immature Gran % (Auto) 0.5 H (0.0-0.4) % Neut % (Auto) 67.9 (45-73) % Lymph % (Auto) 22.9 (20-40) % [place] % (Auto) 6.3 (2-11) % Eos % (Auto) 2.1 (0-4) % Baso % (Auto) 0.3 (0-2) % Lymph # (Auto) 2.0 (1.2-4.9) X10*3/uL [place] # (Auto) 0.6 (0.1-1.2) X10*3/uL Eos # (Auto) 0.2 (0.0-0.4) X10*3/uL Baso # (Auto) 0.0 (0.0-0.2) X10*3/uL Abs Immat Gran (auto) 0.04 H (0.00-0.03) X10*3/uL Absolute Neuts (auto) 6.0 (2.0-8.3) x10*3/uL Absolute Nucleated RBC 0.000 (0.0-0.012) X10*3/uL Nucleated RBC % (auto) 0.0 (0.0-0.2) /100WBC PT 11.9 (11.1-13.3) SEC INR 1.0 (0.9-1.1) APTT 33.2 (26.0-36.4) SEC Sodium 138 (135-145) mmol/L Potassium 4.3 (3.3-5.1) mmol/L Chloride 104 (96-108) mmol/L Carbon Dioxide 26 (22-29) mmol/L Anion Gap 12 (12-20) BUN 13 (9-16) mg/dL Creatinine 0.90 (0.5-1.4) mg/dL Estim Creat Clear Calc 109.9 Estimated GFR > 60 Random Glucose 94 (60-115) mg/dL Calcium 9.7 (8.4-10.2) mg/dL Magnesium 2.2 (1.6-2.6) mg/dL Total Bilirubin 0.3 (0.0-1.0) mg/dL AST 23 (5-37) U/L ALT 31 (0-40) U/L Alkaline Phosphatase 82 (39-117) U/L Troponin I High Sens < 2.7 (<3.5-35.0) ng/L Total Protein 6.9 (6.5-8.0) g/dL Albumin 4.1 (3.5-5.0) g/dL Influenza Type A (PCR) NEGATIVE (Negative) Influenza Type B (PCR) NEGATIVE (Negative) RSV RNA Qual (PCR) NEGATIVE (Negative) SARS-CoV-2 RNA (RT-PCR) NEGATIVE (Negative) Independent Interpretation I performed an independent interpretation of an: EKG and Plain X-Ray Radiology Impression Discussion of test interpretation with radiology: I have reviewed the radiologist's reading. Radiologist Impression: he lungs are clear. There are no pleural effusions. The cardiomediastinal silhouette is normal. No rib fracture, bone lesion or pneumothorax is detected. XR/XR chest 2V IMPRESSION: No acute cardiopulmonary disease. Scores Heart Score History: -0- slightly suspicious ECG: -0- normal Age: -0- < or = 45 Risk factory: -0- no risk factors known Troponin: -0- < or = normal limit Score: 0 Risk: 1.7% Critical Care Time Critical Care Time Critical Care Time: Yes Total Critical Care Time: 45 Attestation: I have personally provided critical care time. Time includes review of lab data, radiology results, discussion with consultants, and monitoring for potential decompensation. Intervention performed as documented. Discharge Plan Discharge Clinical Impression: Atypical chest pain Patient Disposition: Home, Self-Care Instructions: Chest Pain (ED) Additional Instructions: Please follow-up with your primary care physician tomorrow. If you have any worsening or new symptoms, please return to the emergency room or call 911
[2023-03-16 18:30] VITALS: BP 131/80; PULSE 64; RESP 17; O2SAT 98
== END 2023-03-16 18:36 | disposition home or self-care (01) ==
PROVIDERS: Emergency Provider Emergency Medicine; PCP Internal Medicine
DX: R07.89 Other chest pain (principal); Z20.822 Contact with and (suspected) exposure to COVID-19; Z20.828 Contact with and (suspected) exposure to other viral communicable diseases; Z79.899 Other long term (current) drug therapy
CPT/HCPCS: 0241U; 71046; 80053; 83735; 84484; 85025; 85610; 85730; 93005; 99283; 99285

== ENCOUNTER 2023-08-07 15:41 | Outpatient (REF) | payer MEDICARE, MEDICAID, SELFPAY ==
[2023-08-07 18:09] LABS: Alanine Aminotransferase 37 U/L (0-40); Albumin Level 4.4 g/dL (3.5-5.0); Alkaline Phosphatase 91 U/L (39-117); Anion Gap 13 (12-20); Aspartate Amino Transferase 25 U/L (5-37); Bilirubin Total 0.4 mg/dL (0.0-1.0); Blood Urea Nitrogen 12 mg/dL (9-16); Calcium 9.4 mg/dL (8.4-10.2); Carbon Dioxide 24 mmol/L (22-29); Chloride 104 mmol/L (96-108); Cholesterol 180 mg/dL (<200); Estimated Glomerular Filt Rate > 60; Glucose Random 84 mg/dL (60-115); HDL Cholesterol 41 mg/dL (>40); LDL Cholesterol Calculated 113 mg/dL (<100); Potassium 4.2 mmol/L (3.3-5.1); Sodium 137 mmol/L (135-145); Total Protein 7.3 g/dL (6.5-8.0); Triglycerides 132 mg/dL (<150)
[2023-08-08 03:50] LABS: HBS Num1 0.14 mIU/mL (0-7.99); HBc Num1 0.27 S/CO (0.00-0.79); HBsAGNum1 0.36 S/CO (0.00-0.99); Hepatitis B Core Antibody Nonreactive (Nonreactive); Hepatitis B Surface Antigen Negative (Negative); ~HepC Num1 0.11 S/CO (0.00-0.79); ~Hepatitis B Surface Antibody NONREACTIVE (Nonreactive); ~Hepatitis C Antibody Nonreactive (Nonreactive)
[2023-08-08 04:17] LABS: Hepatitis A Antibody IgM 0.18 Index (0-0.79); ~Hepatitis A Antibody IgM Nonreactive (Nonreactive)
[2023-08-10 10:10] LABS: RPR Rapid Plasma Reagin NON-REACTIVE (NON-REACTIVE)
[2023-08-11 18:09] LABS: HIV RNA PCR Qn Copies Not Detected Copies/mL; HIV RNA PCR Qn Log Copies Not Detected Log cps/mL
== END 2023-08-07 15:42 | disposition home or self-care (01) ==
LOC: HO.HHCL 15:41
PROVIDERS: Visit Provider Nurse Practitioner Family
DX: Z00.00 Encounter for general adult medical examination without abnormal findings (principal); Z20.2 Contact with and (suspected) exposure to infections with a predominantly sexual mode of transmission
CPT/HCPCS: 36415; 80053; 80061; 86592; 86704; 86706; 86709; 86803; 87340; 87536; 87900

== ENCOUNTER 2024-06-22 12:00 | Emergency (ER) | payer MEDICARE, MEDICAID, SELFPAY ==
--- NOTE | ~2024-06-22 | XR_ITS ---
EXAMINATION: XR HAND, LEFT CLINICAL INFORMATION: pain. No further clinical information provided. COMPARISON: None available. TECHNIQUE: PA, lateral, and oblique views of the left hand. FINDINGS: The bones and soft tissues are normal. No acute fracture. Alignment is anatomic. Joint spaces are maintained. No erosions or soft tissue calcifications. Old ununited styloid fracture. XR/XR hand LT 2V IMPRESSION: Normal left hand and wrist. Electronically signed by: Hawk Fink MD 06/22/2024 01:33 PM EST
[2024-06-22 12:29] VITALS: BP 112/63; PULSE 71; RESP 20; TEMP 36.5; O2SAT 96; BMI 37.8
--- NOTE | 2024-06-22 14:08 | ED_ITS ---
HPI - Extremity Problem General Chief complaint: Extremity Injury, Upper Stated complaint: Finger Pain L Hand Time Seen by Provider: 06/22/24 14:07 Source: patient, RN notes reviewed and old records reviewed Mode of arrival: ambulatory Limitations: no limitations History of Present Illness ED Provider: Maribel ORR Narrative: 43-year-old male presents for evaluation of an injury to his left 3rd finger. He reports that he slammed his finger in a window as it closed He reports bruising underneath his fingernail Denies any other injuries Related Data Previous Rx's ?Medication ?Instructions ?Recorded famotidine 20 mg tablet (Pepcid) 20 mg PO BID #40 tabs 07/14/20 lidocaine 5 % topical patch 1 patch topical DAILY #15 ea 07/18/20 (Lidoderm) prednisone 20 mg tablet 40 mg (2 x 20 mg) PO DAILY #10 tabs 07/18/20 cyclobenzaprine 10 mg tablet 10 mg PO TID PRN muscle spasm #10 08/01/20 tabs ibuprofen 600 mg tablet 600 mg PO Q8H PRN pain #10 tabs 08/01/20 acetaminophen 500 mg tablet 500 mg PO Q6H PRN pain or fever 02/11/21 (Tylenol Extra Strength) #20 tabs cyclobenzaprine 5 mg tablet 5 mg PO Q8H PRN pain (scale score 02/11/21 7-10) 5 days #14 tabs lidocaine 5 % topical patch 1 patch topical DAILY PRN pain #30 02/11/21 (Lidoderm) ea naproxen 500 mg tablet 500 mg PO BID PRN pain 10 days #20 02/11/21 tabs naproxen 500 mg tablet 500 mg PO BID PRN pain #60 tabs 05/16/21 ibuprofen 600 mg tablet 600 mg PO Q6H PRN fever or pain 05/11/22 #30 tabs ibuprofen 600 mg tablet 600 mg PO Q6H PRN fever or pain 05/28/22 #30 tabs Allergies Allergy/AdvReac Type Severity Reaction Status Date / Time No Known Allergies Allergy Verified 06/22/24 12:32 Review of Systems Integumentary/Breasts: Skin/Breast: Reports unusual bruising PMFSH Past Medical History Medical History Patient denies medical problems Social History Social History (System 03/17/23 @ 07:43 by Sue Mora) Alcohol intake: never Patient Tobacco Use Status: Never used Tobacco Current occupational status: disabled Current occupation: Rt handed Physical Exam Vital Signs: Vital Signs: Last Vital Signs Temp 97.7 F 06/22/24 12:29 Pulse 71 06/22/24 12:29 Resp 20 06/22/24 12:29 BP 112/63 06/22/24 12:29 Pulse Ox 96 06/22/24 12:29 O2 Del Method Room Air 06/22/24 12:29 BMI result Body Mass Index 37.8 Const: General: healthy appearing, comfortable, no acute distress, alert and awake Nutritional Appearance: well nourished Orientation/consciousness: patient oriented x3 HEENT: Head: Yes normocephalic and Yes atraumatic Skin: Other: There is a subungual hematoma to the left 3rd fingernail. No open wounds or lacerations General skin exam: elasticity normal Neuro: General: patient oriented x3 Cranial nerves: Yes Bilaterally intact EOM present Cognition (Neuro): normal cognition Extrem: Other: Tenderness to the distal aspect of the left 3rd finger. No obvious deformity Medical Decision Making Medical Decision Making MDM Narrative: 43-year-old male presents for evaluation of left 3rd finger pain. On exam he has a subungual hematoma. X-rays negative for fracture. Electrocautery was used for nail trephination with good relief of the patient's discomfort once the blood was evacuated from under the fingernail. There were no complications Differential Diagnosis Differential Diagnoses: The differential diagnosis associated with the presentation includes Subungual hematoma Finger fracture Contusion Hematoma Radiology Impression Discussion of test interpretation with radiology: I have reviewed the radiologist's reading. Radiologist Impression: FINDINGS: The bones and soft tissues are normal. No acute fracture. Alignment is anatomic. Joint spaces are maintained. No erosions or soft tissue calcifications. Old ununited styloid fracture. XR/XR hand LT 2V IMPRESSION: Normal left hand and wrist. Electronically signed by: Hawk Fink MD 06/22/2024 01:33 PM [facility] Discharge Plan Discharge Clinical Impression: Subungual hematoma of finger of left hand Patient Disposition: Home, Self-Care Instructions: Hematoma (ED) Additional Instructions: You had a small hole burned into your fingernail to relieve the blood that was collecting underneath. The hole will correct once the nail grows out completely, but this may take a few months Prescriptions: No Action cyclobenzaprine 10 mg tablet 10 mg PO TID PRN (Reason: muscle spasm) Qty: 10 0RF ibuprofen 600 mg tablet 600 mg PO Q8H PRN (Reason: pain) Qty: 10 0RF lidocaine [Lidoderm] 5 % adhesive patch,medicated 1 patch topical DAILY MDD remove after 12 hours PRN (Reason: pain) Qty: 30 0RF Rx Instructions: leave on most painful area for up to 12 hrs cyclobenzaprine 5 mg tablet 5 mg PO Q8H PRN (Reason: pain (scale score 7-10)) 5 Days Qty: 14 0RF naproxen 500 mg tablet 500 mg PO BID PRN (Reason: pain) 10 Days Qty: 20 0RF acetaminophen [Tylenol Extra Strength] 500 mg tablet 500 mg PO Q6H PRN (Reason: pain or fever) Qty: 20 0RF famotidine [Pepcid] 20 mg tablet 20 mg PO BID Qty: 40 0RF prednisone 20 mg tablet 40 mg PO DAILY Qty: 10 0RF lidocaine [Lidoderm] 5 % adhesive patch,medicated 1 patch topical DAILY Qty: 15 0RF Rx Instructions: leave on most painful area for up to 12 hrs ibuprofen 600 mg tablet 600 mg PO Q6H PRN (Reason: fever or pain) Qty: 30 0RF naproxen 500 mg tablet 500 mg PO BID PRN (Reason: pain) Qty: 60 0RF ibuprofen 600 mg tablet 600 mg PO Q6H PRN (Reason: fever or pain) Qty: 30 0RF Print Language: Luxembourgish
[2024-06-22 14:19] VITALS: BP 112/63; PULSE 71; RESP 20; TEMP 36.5; O2SAT 96
== END 2024-06-22 14:19 | disposition home or self-care (01) ==
PROVIDERS: Emergency Provider Student in an Organized Health Care Education/Training Program
DX: S60.032A Contusion of left middle finger without damage to nail, initial encounter (principal); M79.642 Pain in left hand; X58.XXXA Exposure to other specified factors, initial encounter; Y92.9 Unspecified place or not applicable; Y99.9 Unspecified external cause status; Z79.899 Other long term (current) drug therapy
CPT/HCPCS: 73120; 99282; 99283

== ENCOUNTER → 2024-06-22 12:33 | Outpatient (BNV) | payer MEDICARE, MEDICAID, SELFPAY | PROVIDERS: Visit Provider Radiology Diagnostic Radiology | DX: M79.642 Pain in left hand (principal) | CPT/HCPCS: 73120 ==

== ENCOUNTER 2025-01-24 13:52 | Emergency (ER) | payer MEDICARE, MEDICAID, SELFPAY ==
[2025-01-24 14:00] VITALS: BP 126/53; PULSE 81; RESP 18; TEMP 36.6; O2SAT 98; BMI 34.3
--- NOTE | 2025-01-24 14:05 | ED_ITS ---
HPI - General Adult General Chief complaint: Wound/Laceration Stated complaint: Burn L side of face Time Seen by Provider: 01/24/25 20:37 Source: patient Limitations: no limitations History of Present Illness ED Provider: Roslyn Turcios PA-C HPI narrative: 44-year-old male presents with right cheek pain. Patient states he had a pimple on his face, it has increased in size and become swollen. Patient states he has been ?picking at the blemish?. Denies drainage from the site, no fever. Related Data Previous Rx's ?Medication ?Instructions ?Recorded famotidine 20 mg tablet (Pepcid) 20 mg PO BID #40 tabs 07/14/20 lidocaine 5 % topical patch 1 patch topical DAILY #15 ea 07/18/20 (Lidoderm) prednisone 20 mg tablet 40 mg (2 x 20 mg) PO DAILY # 10 tabs 07/18/20 cyclobenzaprine 10 mg tablet 10 mg PO TID PRN muscle s pasm #10 08/01/20 tabs ibuprofen 600 mg tablet 600 mg PO Q8H PRN pain #10 t abs 08/01/20 acetaminophen 500 mg tablet 500 mg PO Q6H PRN pain or fever 02/11/21 (Tylenol Extra Strength) #20 tabs cyclobenzaprine 5 mg tablet 5 mg PO Q8H PRN pain (scal e score 02/11/21 7-10) 5 days #14 tabs lidocaine 5 % topical patch 1 patch topical DAILY PRN pain #30 02/11/21 (Lidoderm) ea naproxen 500 mg tablet 500 mg PO BID PRN pain 10 da ys #20 02/11/21 tabs naproxen 500 mg tablet 500 mg PO BID PRN pain #60 t abs 05/16/21 ibuprofen 600 mg tablet 600 mg PO Q6H PRN fever or p ain 05/11/22 #30 tabs ibuprofen 600 mg tablet 600 mg PO Q6H PRN fever or p ain 05/28/22 #30 tabs doxycycline hyclate 100 mg capsule 100 mg PO BID #13 c aps 01/24/25 Allergies Allergy/AdvReac Type Severity Reaction Status Date / Time No Known Allergies Allergy Verified 01/24/25 14:01 Review of Systems 2 Review of Systems: Yes all other systems are reviewed and are negative Constitutional: Constitutional: Denies fatigue and Denies fever(s) Integumentary/Breasts: Skin/Breast: Reports erythema and Reports sores Endocrine: Endocrine: Denies fatigue PMFSH Past Medical History Attestation statement: The following information was validated with the patient. Medical History Patient denies medical problems Social History Social History (System 03/17/23 @ 07:43 by Sue Mora) Alcohol intake: never Patient Tobacco Use Status: Never used Tobacco Smoked in Last 30 Days: No Use of substances other than those prescribed or required for medical reasons: No Advance Directives: No Advance Directives Information Provided: Yes Do you have a plan to hurt others: No Plan Current occupational status: disabled Current occupation: Rt handed Physical Exam ED Vital Signs: Vital Signs - 24 hr 01/24/25 14:00 Temperature 98 F Pulse Rate 81 Respiratory Rate 18 Blood Pressure 126/53 L Pulse Oximetry 98 Oxygen Delivery Method Room Air BMI result Body Mass Index 34.3 Const Other: Alert well-appearing, there was a subtle swelling over right lower cheek, the region is devoid of facial hair, mildly indurated, no central fluctuance, faint this of overlying erythema no drainage Orientation/consciousness: patient oriented x3 Resp Effort & Inspection: normal respiratory effort Cardio Other: Normal peripheral perfusion Skin Other: Warm dry no rash Neuro General: patient oriented x3, gait normal, no focal motor deficits and CN's II- XI intact bilaterally Psych Other: Calm cooperative Course Course Course Narrative: This is a Rapid Medical Examination (RME) performed by Jaime Mcwilliams PA-C in triage. Full HPI, ROS, assessment and treatment plan per primary provider in the Main ED. Hx: 44 yo M here w/ right cheek swelling/ pain x days. states the area started as a pimple, area has progressively become more swollen/ painful. no drainage. applying aquaphor without improvement. PE/vitals: folliculitis w/ ? abscess to right cheek. no active drainage. Plan: labs ?I&D Medications Administered Discontinued Medications Generic Name Dose Route Start Last Admin Trade Name Freq PRN Reason Stop Dose Admin Doxycycline Monohydrate 100 mg 01/24/25 21:19 01/24/25 21:37 Doxycycline Monohydrate 100 Mg Capsule PO 01/24/25 21:20 100 mg ONCE ONE Administration Medical Decision Making Medical Decision Making [facility] Narrative: 44-year-old male presents with right cheek pain. Patient states he had a pimple on his face, it has increased in size and become swollen. Patient states he has been ?picking at the blemish?. Denies drainage from the site, no fever. No chronic issues History: Per patient I have considered the following differential diagnoses: Cellulitis, purulent cellulitis, folliculitis, parotitis, dental infection Plan: Viewed the site with bedside ultrasound, it is barely cellulitic, we will cover with doxycycline. No indication for imaging, screening labs obtained from triage I have independently reviewed the following tests: Labs: No leukocytosis, not anemic, no electrolyte abnormality noted Lab Data 01/24/25 14:16 01/24/25 14:16 Labs: Lab Results 01/24/25 Range/Units 14:16 WBC 9.3 (4.8-10.8) X10*3/uL RBC 4.95 (4.60-5.80) X10*6/uL Hgb 15.3 (14.0-18.0) g/dl Hct 44.5 (42.0-52.0) % MCV 89.9 (80.0-98.0) fL MCH 30.9 (27.0-33.0) pg MCHC 34.4 (31.0-36.0) g/dl RDW 12.0 (11.0-16.0) % Plt Count 211 (160-400) X10*3/uL MPV 12.3 (9.4-12.4) fL Immature Gran % (Auto) 0.4 (0.0-0.4) % Neut % (Auto) 68.8 (45-73) % Lymph % (Auto) 22.3 (20-40) % [place] % (Auto) 6.4 (2-11) % Eos % (Auto) 1.9 (0-4) % Baso % (Auto) 0.2 (0-2) % Lymph # (Auto) 2.1 (1.2-4.9) X10*3/uL [place] # (Auto) 0.6 (0.1-1.2) X10*3/uL Eos # (Auto) 0.2 (0.0-0.4) X10*3/uL Baso # (Auto) 0.0 (0.0-0.2) X10*3/uL Abs Immat Gran (auto) 0.04 H (0.00-0.03) X10*3/uL Absolute Neuts (auto) 6.4 (2.0-8.3) x10*3/uL Absolute Nucleated RBC 0.000 (0.0-0.012) X10*3/uL Nucleated RBC % (auto) 0.0 (0.0-0.2) /100WBC Sodium 139 (135-145) mmol/L Potassium 3.7 (3.3-5.1) mmol/L Chloride 105 (96-108) mmol/L Carbon Dioxide 26 (22-29) mmol/L Anion Gap 12 (12-20) BUN 13 (9-16) mg/dL Creatinine 0.90 (0.5-1.4) mg/dL Estim Creat Clear Calc 105.2 Estimated GFR > 60 Random Glucose 129 H (60-115) mg/dL Calcium 8.8 D (8.4-10.2) mg/dL Total Bilirubin 0.4 (0.0-1.0) mg/dL AST 29 (5-37) U/L ALT 40 (0-40) U/L Alkaline Phosphatase 91 (39-117) U/L Total Protein 6.5 (6.5-8.0) g/dL Albumin 4.1 (3.5-5.0) g/dL Discharge Plan Discharge Clinical Impression: Cellulitis of external cheek, right Patient Disposition: Home, Self-Care Instructions: Cellulitis (ED) Additional Instructions: You are being treated for cellulitis. See home care instructions. Take the doxycycline as directed. Follow up with primary care as needed Prescriptions: New doxycycline hyclate 100 mg capsule 100 mg PO BID Qty: 13 0RF No Action cyclobenzaprine 10 mg tablet 10 mg PO TID PRN (Reason: muscle spasm) Qty: 10 0RF ibuprofen 600 mg tablet 600 mg PO Q8H PRN (Reason: pain) Qty: 10 0RF lidocaine [Lidoderm] 5 % adhesive patch,medicated 1 patch topical DAILY MDD remove after 12 hours PRN (Reason: pain) Qty: 30 0RF Rx Instructions: leave on most painful area for up to 12 hrs cyclobenzaprine 5 mg tablet 5 mg PO Q8H PRN (Reason: pain (scale score 7-10)) 5 Days Qty: 14 0RF naproxen 500 mg tablet 500 mg PO BID PRN (Reason: pain) 10 Days Qty: 20 0RF acetaminophen [Tylenol Extra Strength] 500 mg tablet 500 mg PO Q6H PRN (Reason: pain or fever) Qty: 20 0RF famotidine [Pepcid] 20 mg tablet 20 mg PO BID Qty: 40 0RF prednisone 20 mg tablet 40 mg PO DAILY Qty: 10 0RF lidocaine [Lidoderm] 5 % adhesive patch,medicated 1 patch topical DAILY Qty: 15 0RF Rx Instructions: leave on most painful area for up to 12 hrs ibuprofen 600 mg tablet 600 mg PO Q6H PRN (Reason: fever or pain) Qty: 30 0RF naproxen 500 mg tablet 500 mg PO BID PRN (Reason: pain) Qty: 60 0RF ibuprofen 600 mg tablet 600 mg PO Q6H PRN (Reason: fever or pain) Qty: 30 0RF Print Language: Slovak
[2025-01-24 14:20] LABS: MANUAL DIFF FLAG NO
[2025-01-24 14:21] LABS: Hematocrit 44.5 % (42.0-52.0); Hemoglobin 15.3 g/dl (14.0-18.0); Imm Gran Abs Auto 0.04 X10*3/uL (0.00-0.03); Imm Gran Pct Auto 0.4 % (0.0-0.4); Lymphocytes Absolute Auto 2.1 X10*3/uL (1.2-4.9); Mean Corpuscular HGB Conc 34.4 g/dl (31.0-36.0); Mean Corpuscular Hemoglobin 30.9 pg (27.0-33.0); Mean Corpuscular Volume 89.9 fL (80.0-98.0); NRBC Abs Auto 0.000 X10*3/uL (0.0-0.012); NRBC Pct Auto 0.0 /100WBC (0.0-0.2); Platelet Count 211 X10*3/uL (160-400); Red Blood Count 4.95 X10*6/uL (4.60-5.80); White Blood Count 9.3 X10*3/uL (4.8-10.8)
[2025-01-24 14:41] LABS: Alanine Aminotransferase 40 U/L (0-40); Albumin Level 4.1 g/dL (3.5-5.0); Alkaline Phosphatase 91 U/L (39-117); Anion Gap 12 (12-20); Aspartate Amino Transferase 29 U/L (5-37); Blood Urea Nitrogen 13 mg/dL (9-16); Calcium 8.8 mg/dL (8.4-10.2); Carbon Dioxide 26 mmol/L (22-29); Chloride 105 mmol/L (96-108); Creatinine Clr Calc Pharmacy 105.2; Estimated Glomerular Filt Rate > 60; Potassium 3.7 mmol/L (3.3-5.1); Sodium 139 mmol/L (135-145); Total Protein 6.5 g/dL (6.5-8.0)
--- OUTSIDE RECORDS SUMMARY | 2025-01-24 15:40 | XMS_ITS | Encounter Summary ---
Author Organization [employer] Address [address] [place] [address] [address] [place] [address] Care Team Providers Care Mail Handler Name Role Phone Palmira Villafuerte MD Primary Care Provider Lurdes Marcial Primary Care Provider [phone] [facility] SPECIALIZED DEVELOPER Primary Care Provider [phone] Encounter Details Date Type Department Care Team (Latest Contact Info) Description 07/19/2020 Abstract [facility] CONVERSIONS Dental, Provider, DDS Social History Tobacco Use Types Packs/Day Years Used Date Smoking Tobacco: Never Assessed Sex and Gender Information Value Date Recorded Sex Assigned at Male 04/07/2022 10:15 AM EDT Legal Sex Male 10:15 AM EDT Gender Identity Male 04/07/2022 10:15 AM EDT Sexual Orientation Straight 04/07/2022 10 :15 AM EDT documented as of this encounter Plan of Treatment Upcoming Encounters Date Type Department Care Team (Late st Contact Info) Description 02/14/2025 1:00 PM EDT Office Visit [facility] [address] [place] [address] [facility] [address] [place] [address] documented as of this encounter Visit Diagnoses Not on filedocumented in this encounter Care Teams Mail Handler Relationship Specialty Start Date End Date Palmira Villafuerte MD PCP - General Family Medicine 04/27/19 04/23/22 Lurdes Banuelos FNP [address] [place] [address] PCP - General Family Medicine 04/24/22 02/08/24 Danya Christensen FNP [address] [place] [id number] PCP - General Family Medicine 02/09/24 documented as of this encounter
[2025-01-24 22:20] VITALS: BP 130/78; PULSE 58; RESP 16; TEMP 36.4; O2SAT 97
== END 2025-01-24 22:24 | disposition home or self-care (01) ==
PROVIDERS: Physician Assistant Medical; Emergency Provider Emergency Medicine
DX: L03.211 Cellulitis of face (principal); R51.9 Headache, unspecified
CPT/HCPCS: 36415; 80053; 85025; 99283; 99284

== ENCOUNTER 2025-05-08 14:29 | Outpatient (REF) | payer MEDICARE, MEDICAID, SELFPAY ==
[2025-05-08 16:43] LABS: Alanine Aminotransferase 50 U/L (0-40); Albumin Level 4.4 g/dL (3.5-5.0); Alkaline Phosphatase 87 U/L (39-117); Anion Gap 10 (12-20); Aspartate Amino Transferase 53 U/L (5-37); Blood Urea Nitrogen 15 mg/dL (9-16); Calcium 9.0 mg/dL (8.4-10.2); Carbon Dioxide 29 mmol/L (22-29); Chloride 104 mmol/L (96-108); Cholesterol 182 mg/dL (<200); Estimated Glomerular Filt Rate > 60; HDL Cholesterol 37 mg/dL (>40); Potassium 3.7 mmol/L (3.3-5.1); Sodium 139 mmol/L (135-145); Total Protein 6.8 g/dL (6.5-8.0); Triglycerides 264 mg/dL (<150)
--- OUTSIDE RECORDS SUMMARY | 2025-05-08 17:47 | XMS_ITS | Encounter Summary ---
Author Organization [employer] Address [address] [facility] 7t [place] [address] Care Team Providers Care Oven Laborer Name Role Phone Lurdes Banuelos [facility] Primary Care Provider [phone] [facility] Primary Care Provider [phone] Encounter Details Date Type Department Care Team (Late st Contact Info) Description 11/07/2022 Orders Only [facility] [address] [place] [address] Lurdes Banuelos FNP [address] [place] [address] Chest pain due to GERD Social History Tobacco Use Types Packs/Day Years Used Date Smoking Tobacco: Former Cigarettes Passive Smoke Exposure: Current Smokeless Tobacco: Never Passive Exposure Comments:br other Alcohol Use Standard Drinks/Week Comments Never 0 (1 standard drink = 0.6 oz pur e alcohol) Depression Answer Date Recorded Patient Health Questionnaire-9 Score 0 11/05/2022 Depression Answer Date Recorded Patient Health Questionnaire-2 Score 0 11/05/2022 Sex and Gender Information Value Date Recorded Sex Assigned at Male 04/07/2022 10:15 AM EDT Legal Sex Male 10:15 AM EDT Gender Identity Male 04/07/2022 10:15 AM EDT Sexual Orientation Straight 04/07/2022 10 :15 AM EDT COVID-19 Exposure Response Date Recorded In the last 10 days, have yo u been in contact with someone who was confirmed or suspected to have Coronavirus/COVID-19? No / Unsure 11/05/2022 2:05 PM EDT documented as of this encounter Plan of Treatment Not on file documented as of this encounter Visit Diagnoses Diagnosis Chest pain due to GERD documented in this encounter Additional Health Concerns Assessment Noted Time PHQ-9 Depression Total Score: 0 11/06/19 23 2:16 PM EDT documented as of this encounter Care Teams Oven Laborer Relationship Specialty Start Date End Date Lurdes Banuelos FNP [address] [place] [address] PCP - General Family Medicine 04/24/22 02/08/24 Danya Christensen FNP [address] [place] [address] PCP - General Family Medicine 02/09/24 documented as of this encounter
--- OUTSIDE RECORDS SUMMARY | 2025-05-08 17:47 | XMS_ITS | Clinical Summary ---
Author Organization [employer] Address [address] [place] [address] 7t [place] [address] Care Team Providers Care Ship Purser Name Role Phone Danya Christensen Primary Care Provider [phone] Allergies No known active allergies Medications sertraline (Zoloft) 25 MG tablet Take 1 tablet by mouth at bed time. 2 Active Blood Pressure Monitor kit Active omeprazole (PriLOSEC) [address] capsule Take 1 capsule (40 mg) by mouth before breakfast. Do not crush or chew. 90 capsule 3 3 Active Additional Information Patient not taking.Reported on 03/17/2025 hydrOXYzine pamoate (Vistaril) 25 MG capsule Take 1 capsule (25 mg) by mouth every 6 (six) hours if needed for itching or anxiety. 60 capsule 1 4 Active Active Problems Problem Noted Date Diagnosed Date Normal oral exam 08/10/2024 Periapical abscess without sinus 06/26/2022 Dental calculus 06/26/2022 Dental caries 06/26/2022 Gingival bleeding 06/26/2022 Chest pain due to GERD 06/25/2022 Chronic low back pain 09/14/2018 Developmental academic disorder 06/21/2018 Obesity (BMI 30-39.9) 06/21/2018 Resolved Problems Problem Noted Date Diagnosed Date Resolved Date Kidney stone 06/21/2018 03/17/2025 Encounters Date Type Department Care Team Description 03/17/2025 10:00 AM EDT Office Visit [facility] [address] [place], [place] [phone] Danya Christensen FNP Class 2 severe obesity due to excess calories with serious comorbidity and body mass index (BMI) of 37.0 to 37.9 in adult (Primary Dx); Routine screening for STI (sexually transmitted infection); Dietary counseling; Exercise counseling; Encounter for screening for diabetes mellitus; Encounter for screening for malignant neoplasm of colon; Encounter for immunization; Encounter for vaccination 03/17/2025 Travel 03/16/2025 Telephone [facility] [address] [place] [phone] Danya Christensen FNP chart prep 03/09/2025 Patient Outreach [facility] [address] [place] [phone] Danya Christensen FNP Pre-visit Planning (SDOH screening negative and tobacco screening negative) 02/08/2025 Orders Only [facility] [address] [place] [phone] Danya Christensen FNP Encounter for screening for malignant neoplasm of colon (Primary Dx) 02/07/2025 Telephone [facility] [address] [place] [phone] Danya Christensen FNP Referral from Last 3 Months Immunizations Immunization Administration Dates Next Due HepB-CpG 03/17/2025 Influenza injectable quadriv alent preservative free 02/18/2022,05/21/2021,08/21/2020 Influenza, seasonal, injecta ble, preservative free 03/17/2025 Moderna Covid-19 Vaccine 12+ 06/03/2021,11/10/19 21,10/12/2020 Pfizer Covid-19 Vaccine 12+ 03/17/2025 Tdap 08/21/2020 Family History Medical History Relation Name Comments Heart disease Father's Sister Diabetes Mother Hypertension Mother Diabetes Sister Hypertension Sister Relation Name Status Comments Father's Sister Mother Sister Social History Tobacco Use Types Packs/Day Years Used Date Smoking Tobacco: Former Cigarettes Passive Smoke Exposure: Current Smokeless Tobacco: Never Tobacco Cessation:Counseling Given: Not Answered Comments:Smoked 20 years ago, smoked x 5 years Passive Exposure Comments:brother Alcohol Use Standard Drinks/Week Comments Never 0 (1 standard drink = 0.6 oz pur e alcohol) Depression Answer Date Recorded Patient Health Questionnaire-9 Score 0 03/17/2025 Patient Health Questionnaire-9 Score 0 03/17/2025 Last PHQ-9: Questionnaire Data Not on file 1 Housing Stability Answer Date Recorded What is your housing situation today? I have tam mancini 03/09/[address] you li ve. Do you have problems with any of the following? None of the above 03/09/2025 Food Insecurity Answer Date Recorded Within the past 12 months, y ou worried that your food would run out before you got money to buy more: Never True 03/09/2025 Within the past 12 months,th e food you bought just didn't last and you didn't have enough money to get more: Never True 07/2024 Transportation Answer Date Recorded In the past 12 months, has l ack of transportation kept you from medical appts, meetings, work or from getting things needed for daily living? No 03/09/2025 Utilities Answer Date Recorded In the past 12 months, has t he electric, gas, oil or water company threatened to shut off services in your home? No 03/09/2025 Depression Answer Date Recorded Patient Health Questionnaire-2 Score 0 03/17/2025 Internet Access Answer Date Recorded Internet Access Q1 Yes 03/09/2025 Internet Access Q2 Not on file 03/09/2025 Sex and Gender Information Value Date Recorded Sex Assigned at Male 04/07/2022 10:15 AM EDT Legal Sex Male 10:15 AM EDT Gender Identity Male 04/07/2022 10:15 AM EDT Sexual Orientation Straight 04/07/2022 10 :15 AM EDT Last Filed Vital Signs Vital Sign Reading Time Taken Comments Blood Pressure 126/64 03/17/2025 9:54 AM EDT Pulse 66 03/17/2025 9:54 AM EDT Temperature 36.5 C (97.7 F) 03/17/2025 9:54 AM EDT Respiratory Rate 20 03/17/2025 9:54 AM EDT Oxygen Saturation 98% 08/07/2023 3:08 PM EST Inhaled Oxygen Concentration - - Weight 99.2 kg (218 lb 12.8 oz) 03/17/2025 9:54 AM EDT Height 162.6 cm (5' 4 ) 03/17/2025 9:54 AM EDT Body Mass Index 37.56 03/17/2025 9:54 AM EDT Plan of Treatment Health Maintenance Due Date Last Done Comments CT Colonography 1979 Colonoscopy 1979 Colorectal Cancer Screening 1979 FIT DNA/Cologuard 1979 FIT 1979 FOBT 1979 HIV Screening 1979 Sigmoidoscopy 1979 Disability Screening 1979 Alcohol/Substance Use Screening 1991 Family Planning (PISQ) 10/20/1994 HPV Vaccines (1 - Male 3-dose series) 10/20/1994 Dental Oral Exam 02/11/2025 08/10/2024, , 06/26/2022 Dental Prophylaxis 02/11/2025 08/10/2024, 0 08/06/2023, 06/26/2022 Hepatitis B Vaccines (2 of 2 - CpG 2-dose series) 04/14/2025 03/17/2025 Dental X-Ray: Full Mouth 06/27/2025 06/26/2022 Dental X-Ray: Bitewings 08/11/2025 08/11/19 25, 08/06/2023, 06/26/2022 SDOH Screening 03/09/2026 03/09/2025 Depression Screening 03/17/2026 03/17/2025, 03/17/20 Tobacco Screening 03/17/2026 03/17/2025 Lipid Panel 08/06/2028 05/08/2025, 08/07/2023 Zoster Vaccines (1 of 2) 10/20/2029 DTaP/Tdap/Td Vaccines (2 - Td or Tdap) 08/21/2030 08/21/2020 RSV Patients and Patients Aged 60 years or older (1 - 1-dose 75+ series) 10/20/2054 Hepatitis C Screening Completed 08/07/2023 COVID-19 Vaccine Completed 03/17/2025, , 11/09/2020, Additional history exists Influenza Vaccine Completed 03/17/2025, , 05/21/2021, Additional history exists HIB Vaccines Aged Out No longer eligi ble based on patient's age to complete this topic Hepatitis A Vaccines Aged Out No long er eligible based on patient's age to complete this topic IPV Vaccines Aged Out No longer eligi ble based on patient's age to complete this topic Meningococcal B Vaccine Aged Out No l onger eligible based on patient's age to complete this topic Meningococcal Vaccine Aged Out No carlos cristobal eligible based on patient's age to complete this topic Pneumococcal Vaccine: Pediatrics (0 to 5 Years) and At-Risk Patients (6 to 49) Years Aged Out No longer eligible based on patient's age to complete this topic RSV under 20 months Aged Out No longe r eligible based on patient's age to complete this topic Rotavirus Vaccines Aged Out No longer eligible based on patient's age to complete this topic Procedures Procedure Name Priority Date/Time Associated Diagnosis Comments COMPREHENSIVE METABOLIC PANEL Routine 05/08/2025 2:51 PM EST Class 2 severe obesity due to excess calories with serious comorbidity and body mass index (BMI) of 37.0 to 37.9 in adult LIPID PANEL, STANDARD Routine 05/08/2025 2:51 PM EST Class 2 severe obesity due to excess calories with serious comorbidity and body mass index (BMI) of 37.0 to 37.9 in adult HEMOGLOBIN A1C Routine 05/08/2025 2:51 PM EST Class 2 severe obesity due to excess calories with serious comorbidity and body mass index (BMI) of 37.0 to 37.9 in adult Encounter for screening for diabetes mellitus Full PROPHYLAXIS - ADULT Routine 08/10/2024 2:00 PM EST Dental calculus BITEWINGS - 4 RADIOGRAPHIC IMAGES Routine 08/10/2024 2:00 PM EST Dental calculus PERIODIC ORAL EVALUATION - ESTABLISHED PATIENT Routine 08/10/2024 2:00 PM EST HEPATITIS PANEL, GENERAL Routine 08/07/2023 3:46 PM EST Routine general medical examination at a health care facility Routine screening for STI (sexually transmitted infection) INTRAORAL - COMPLETE SERIES OF RADIOGRAPHIC IMAGES Routine 06/26/2022 1:00 PM EST from Last 3 Months or Most Recently Relevant to Health Maintenance Results * Hemoglobin A1c (05/08/2025 2:51 PM EST) Hemoglobin A1c 6.0 <6.0 % [facility] Comment:Hemoglobin A1C Refer ence Range Adults: 4.8 - 6.0 % Non diabetic: < 6.0 % Goal: < 7.0 %Additional Action Suggested: > 8.0 %Note: Hemoglobin A1c results are invalid for patients with abnormal amounts of HbF. Blood transfusions may impact the HbA1c concentration in the patient sample. Estimated Average Glucose 126 mg/dL [facility] Comment:eAG = Estimated ave rage glucose which is %A1C expressed asaverage glucose, using the formula of the C3D-[id number] Glucose study (ADAG), Diabetes Care, Vol.31,#8,2007 Blood Venous blood specimen / Unknown 05/08/2025 2:51 PM EST 05/08/2025 4:11 PM EST [facility] LAB BLOOD ORDERABLES Final Re sult [facility] [address] [place] [address] [phone] * (ABNORMAL) Lipid Panel, Standard (05/08/2025 2:51 PM EST) Triglycerides 264(H) <150 mg/dL [facility] Comment:Desirable Triglyceri de: less than 150 mg/dLBorderline High Triglyceride 150-199 mg/dLHigh Triglyceride: 200-499 mg/dLVery High Triglyceride: greater than or equal to 5OO mg/dL Cholesterol 182 <200 mg/dL [facility] Comment:Desirable Cholestero l: less than 200 mg/dLBorderline High Cholesterol: 200-239 mg/dLHigh Cholesterol: greater than 239 mg/dL LDL Cholesterol Calculated 93 <100 mg/dL [facility] Comment:Desirable LDL: less than 100 mg/dLNear Optimal/Above Optimal LDL: 110- 129 mg/dLBorderline High LDL: 130-159 mg/dLHigh LDL: 160-189 mg/dLVery High LDL: greater than or equal to 190 mg/dL HDL Cholesterol 37(L) >40 mg/dL [facility] Comment:Desirable HDL: great er than 40 mg/dL Note: This HDL assay may give artificially low results in patients with liver disease. Blood Venous blood specimen / Unknown 05/08/2025 2:51 PM EST 05/08/2025 4:11 PM EST [facility] LAB BLOOD ORDERABLES Final Re sult [facility] [address] [place] [address] [phone] * (ABNORMAL) Comprehensive Metabolic Panel (05/08/2025 2:51 PM EST) Sodium 139 135 - 145 mmol/L [facility] Potassium 3.7 3.3 - 5.1 mmol/L [facility] Chloride 104 96 - 108 mmol/L [facility] Carbon Dioxide 29 22 - 29 mmol/L [facility] Anion Gap 10(L) 12 - 20 [facility] Urea Nitrogen (BUN) 15 9 - 16 mg/dL [facility] Creatinine, Serum 0.95 0.5 - 1.4 mg/dL [facility] Estimated Glomerular Filt Rate >60 [facility] Comment:Chronic Kidney Disea se: Estimated GFR < 60 mL/min/1.08v2Ilhgzl Kidney Disease: Estimated GFR < 15 mL/min/1.73m2 Glucose 70 60 - 115 mg/dL [facility] Calcium 9.0 8.4 - 10.2 mg/dL [facility] Bilirubin, Total 0.4 0.0 - 1.0 mg/dL [facility] Aspartate Amino Transferase 53(H) 5 - 37 U/L [facility] Alanine Aminotransferase 50(H) 0 - 40 U/L [facility] Total Protein 6.8 6.5 - 8.0 g/dL [facility] Albumin Level 4.4 3.5 - 5.0 g/dL [facility] Alkaline Phosphatase 87 39 - 117 U/L [facility] Blood Venous blood specimen / Unknown 05/08/2025 2:51 PM EST 05/08/2025 4:11 PM EST us Danya [place] [facility] LAB BLOOD ORDERABLES Final Re sult Performing Organization Address City/[facility]/ZIP Co de Phone Number [facility] [address] [place] [address] [phone] * Hepatitis A,B,C Profile (08/07/2023 3:46 PM EST) Hepatitis A IgM Nonreactive Nonreactive [facility] Comment:IgM antibodies to BELLA V not detected; does not exclude earlyacute or recovered HAV infection. ~Hepatitis B Surface Antibody NONREACTIVE Nonreactive [facility] Comment:Nonreactive: < 8.00 mIU/mL Hepatitis B Core Antibody Nonreactive Nonreactive [facility] Hepatitis C Antibody Nonreactive Nonreactive [facility] Comment:Antibodies to HCV no t detected; does not exclude early acuteHCV infection. Hepatitis B Surface Ag Negative Negative [facility] Blood Venous blood specimen / Unknown 08/07/2023 3:46 PM EST 08/07/2023 5:44 PM EST Lurdes [place]af[place] [facility] LAB BLOOD ORDERABLES Final Resu lt Performing Organization Address [facility] Co de Phone Number [facility] [address] [place] [address] [phone] from Last 3 Months or Most Recently Relevant to Health [place] [id number] [facility] D[facility]AL-[facility] MEDICAID STAND ADULT Care Teams Ship Purser Relationship Specialty Start Date End Date Danya Christensen FNP [address] [place] [address] PCP - General Family Medicine 02/09/24
--- OUTSIDE RECORDS SUMMARY | 2025-05-08 17:47 | XMS_ITS | Encounter Summary ---
Author Organization [email or web address] Address [address] [place] [address] 7 [place] [address] Care Team Providers Care Tractor Trailer Mechanic Name Role Phone Tomer Banuelosnne [facility] Primary Care Provider [phone] [place] RidgeDanya [facility] Primary Care Provider [phone] Encounter Details Date Type Department Care Team (Late st Contact Info) Description 05/21/2022 Abstract [facility] [address] [place] [address] Georgiana Carmen [address] [place] [address] Social History Tobacco Use Types Packs/Day Years [...] on file documented as of this encounter Procedures Procedure Name Priority Date/Time Associated Diagnosis Comments 12 O COMPOSITE FILLING Routine 05/21/2022 12:00 AM EST 13 O COMPOSITE FILLING Routine 05/21/2022 12:00 AM EST 31 O AMALGAM FILLING Routine 05/21/2022 12:00 AM EST 19 O AMALGAM FILLING Routine 05/21/2022 12:00 AM EST 18 MO AMALGAM FILLING Routine 05/21/2022 12:00 AM EST 15 SUGEY AMALGAM FILLING Routine 05/21/2022 12:00 AM EST 3 LO AMALGAM FILLING Routine 05/21/2022 12:00 AM EST 2 LO AMALGAM FILLING Routine 05/21/2022 12:00 AM EST 30 EXTRACTION Routine 05/21/2022 12:00 AM EST 32 EXTRACTION Routine 05/21/2022 12:00 AM EST 17 EXTRACTION Routine 05/21/2022 12:00 AM EST 16 EXTRACTION Routine 05/21/2022 12:00 AM EST 1 EXTRACTION Routine 05/21/2022 12:00 AM EST documented in this encounter Visit Diagnoses Not on filedocumented in this encounter Care Teams Tractor Trailer Mechanic Relationship Specialty Start Date End Date Lurdes Banuelos FNP [address] [place] [address] PCP - General Family Medicine 04/24/22 02/08/24 Danya Christensen FNP [address] [place] [address] PCP - General Family Medicine 02/09/24 documented as of this encounter
--- OUTSIDE RECORDS SUMMARY | 2025-05-08 17:47 | XMS_ITS | Encounter Summary ---
Author Organization [employer] Address [address] [place] [address] [address] [place] [address] Care Team Providers Care Typesetter Perforator Operator Name Role Phone Palmira Villafuerte MD Primary Care Provider Lurdes Marcial [facility] Primary Care Provider [phone] AmparoDanya gilbert [facility] Primary Care Provider [phone] Encounter Details Date Type Department Care Team (Latest Contact Info) Description 02/16/2019 Abstract [facility] CONVERSIONS Dental, Provider, DDS Social History Tobacco [...] on filedocumented in this encounter Care Teams Typesetter Perforator Operator Relationship Specialty Start Date End Date Palmira Villafuerte MD PCP - General Family Medicine 04/27/19 04/23/22 Lurdes Banuelos FNP [address] [place] [address] PCP - General Family Medicine 04/24/22 02/08/24 Danya Christensen FNP [address] [place] [address] PCP - General Family Medicine 02/09/24 documented as of this encounter
--- OUTSIDE RECORDS SUMMARY | 2025-05-08 17:47 | XMS_ITS | Encounter Summary ---
Author Organization [employer] Address [address] [place] [address] 7t [place] [address] Care Team Providers Care Superintendent Mechanical Name Role Phone Lurdes Banuelos [facility] Primary Care Provider [phone] [place] [facility] Primary Care Provider [phone] Encounter Details Date Type Department Care Team ([facility] st Contact Info) Description 11/06/2022 Telephone [facility] [address] [place] [address] Lurdes Banuelos [facility] [address] [place] [address] Social History Tobacco Use Types Packs/Day Years [...] PM EDT documented as of this encounter Miscellaneous Notes * Telephone Encounter - Kayleen Das 11/06/2022 3:01 PM EDT Tc from pt calling stated need a Pa for medication Omeprazole 20mg. Coroner'S Juror call [facility] to verify and Pharmacist told racebook writer that if Dr. Banuelos send script of Omeprazole 40mg for one capsule twice a day could be covered with out a PA. PCP Shipping And Receiving Operator Vin documented in this encounter Plan of Treatment Not on file documented as of this encounter Visit Diagnoses Not on filedocumented in this encounter Additional Health Concerns Assessment Noted Time PHQ-9 Depression Total Score: 0 11/06/19 23 2:16 PM EDT documented as of this encounter Care Teams Superintendent Mechanical Relationship Specialty Start Date End Date Lurdes Banuelos FNP [address] [place] [address] PCP - General Family Medicine 04/24/22 02/08/24 ErieDanya FNP [address] [place] [address] PCP - General Family Medicine 02/09/24 documented as of this encounter
--- OUTSIDE RECORDS SUMMARY | 2025-05-08 17:47 | XMS_ITS | Encounter Summary ---
Author Organization [employer] Address [address] [facility] 7t [place] [address] Care Team Providers Care Brazer Induction Name Role Phone Danya Christensen [employer] Primary Care Provider [phone] Reason for Visit * Reason Onset Date Comments rs no show 06/06/2024 Encounter Details Date Type Department Care Team ([facility] st Contact Info) Description 06/06/2024 Telephone [facility] AD[facility] [address] [place] [address] Georgiana, Carmen [address] [place] [address] rs no show Social History Tobacco Use Types Packs/Day Years Used Date Smoking Tobacco: Former Cigarettes Passive Smoke Exposure: Current Smokeless Tobacco: Never Comments:Smoked 20 years ago , smoked x 5 years Passive Exposure Comments:brother Alcohol Use Standard Drinks/Week Comments Never 0 (1 standard drink = 0.6 oz pur e alcohol) Depression Answer Date Recorded Patient Health Questionnaire-9 Score 0 08/07/2023 Patient Health Questionnaire-9 Score 0 08/07/2023 Last PHQ-9: Questionnaire Data Not on file 0 08/07/2023 Housing Stability Answer Date Recorded What is your housing situation today? I have tam mancini 04/02/[address] you li ve. Do you have problems with any of the following? None of the above 04/02/2023 Food Insecurity Answer Date Recorded Within the past 12 months, y ou worried that your food would run out before you got money to buy more: Never True 04/02/2023 Within the past 12 months,th e food you bought just didn't last and you didn't have enough money to get more: Never True Transportation Answer Date Recorded In the past 12 months, has l ack of transportation kept you from medical appts, meetings, work or from getting things needed for daily living? No 04/02/2023 Utilities Answer Date Recorded In the past 12 months, has t he electric, gas, oil or water company threatened to shut off services in your home? No 04/02/2023 Depression Answer Date Recorded Patient Health Questionnaire-2 Score 0 08/07/2023 Sex and Gender Information Value Date Recorded Sex Assigned at Male 04/07/2022 10:15 AM EDT Legal Sex Male 10:15 AM EDT Gender Identity Male 04/07/2022 10:15 AM EDT Sexual Orientation Straight 04/07/2022 10 :15 AM EDT documented as of this encounter Miscellaneous Notes * Telephone Encounter - Shannon Cervantes - 06/06/2024 1:21 PM EST Patient called to rs no show appt on 04/21. Patient has been informed that there is a waiting period after a no show visit and office will reach out to schedule. Patient understood DR documented in this encounter Plan of Treatment Not on file documented as of this encounter Visit Diagnoses Not on filedocumented in this encounter Additional Health Concerns Assessment Noted Time PHQ-9 Depression Total Score: 0 08/07/19 3:10 PM EST documented as of this encounter Care Teams Brazer Induction Relationship Specialty Start Date End Date Danya Christensen FNP [address] [place] [phone] PCP - General Family Medicine 02/09/24 documented as of this encounter
--- OUTSIDE RECORDS SUMMARY | 2025-05-08 17:47 | XMS_ITS | Encounter Summary ---
Author Organization [facility] Address [address] [place] [address] [address] [address] Care Team Providers Care Auxiliary Plant Operator Name Role Phone Palmira Villafuerte MD Primary Care Provider Lurdes Marcial [facility] Primary Care Provider [phone] AmparoDanya gilbert [facility] Primary Care Provider [phone] Encounter Details Date Type Department Care Team (Latest Contact Info) Description 07/19/2020 Abstract [facility] CONVERSIONS Dental, Provider, DDS Social History Tobacco [...] on filedocumented in this encounter Care Teams Auxiliary Plant Operator Relationship Specialty Start Date End Date Palmira Villafuerte MD PCP - General Family Medicine 04/27/19 04/23/22 Lurdes Banuelos FNP [address] [place] [address] PCP - General Family Medicine 04/24/22 02/08/24 Danya Christensen FNP [address] [place] [address] PCP - General Family Medicine 02/09/24 documented as of this encounter
[2025-05-09 07:55] LABS: Syphilis Screen Nonreactive (Nonreactive)
[2025-05-09 08:10] LABS: HIV Num 1 0.07 S/CO (0.00-0.99); ~HepC Num1 0.09 S/CO (0.00-0.79); ~Hepatitis C Antibody Nonreactive (Nonreactive)
== END 2025-05-08 14:30 | disposition home or self-care (01) ==
LOC: HO.HHCL 14:29
PROVIDERS: PCP Registered Nurse; Visit Provider Registered Nurse
DX: Z11.59 Encounter for screening for other viral diseases (principal); Z11.4 Encounter for screening for human immunodeficiency virus [HIV]; Z13.1 Encounter for screening for diabetes mellitus; E66.812 Obesity, class 2; Z68.37 Body mass index [BMI] 37.0-37.9, adult
CPT/HCPCS: 36415; 80053; 80061; 83036; 86780; 86803; 87389